=== PATIENT | female | born 1975 | race Two or more races ===

== ENCOUNTER 2020-06-23 09:10 | Outpatient (REF) | payer OTHER, SELFPAY ==
[2020-06-23 10:28] LABS: Basophils Absolute Auto 0.1 X10*3/uL (0.0-0.2); Basophils Percent Auto 0.7 % (0-2); Eosinophils Absolute Auto 0.2 X10*3/uL (0.0-0.4); Eosinophils Percent Auto 2.6 % (0-4); Hematocrit 37.8 % (37-47); Hemoglobin 12.2 g/dl (12.0-16.0); Imm Gran Abs Auto 0.02 X10*3/uL (0.00-0.03); Imm Gran Pct Auto 0.3 % (0.0-0.4); Lymphocytes Absolute Auto 2.2 X10*3/uL (1.2-4.9); Lymphocytes Percent Auto 30.8 % (20-40); MANUAL DIFF FLAG NO; Mean Corpuscular HGB Conc 32.3 g/dl (31.0-35.0); Mean Corpuscular Hemoglobin 28.7 pg (27.0-33.0); Mean Corpuscular Volume 88.9 fL (80-98); Mean Platelet Volume 10.8 fL (9.4-12.3); Monocytes Absolute Auto 0.6 X10*3/uL (0.1-1.2); Monocytes Percent Auto 7.8 % (2-11); Neutrophils Absolute Auto 4.2 X10*3/uL (2.0-8.3); Neutrophils Percent Auto 57.8 % (45-73); Platelet Count 256 X10*3/uL (160-400); Red Blood Count 4.25 X10*6/uL (4.20-5.50); Red Cell Distribution Width 12.5 % (11.0-16.0); White Blood Count 7.2 X10*3/uL (4.8-10.8)
[2020-06-23 10:56] LABS: Alanine Aminotransferase 21 U/L (0-31); Albumin Level 4.3 g/dL (3.5-5.0); Alkaline Phosphatase 81 U/L (39-117); Anion Gap 11 (12-20); Aspartate Amino Transferase 18 U/L (5-31); Bilirubin Total 0.2 mg/dL (0.0-1.0); Blood Urea Nitrogen 11 mg/dL (9-16); Calcium 9.2 mg/dL (8.4-10.2); Carbon Dioxide 27 mmol/L (22-29); Chloride 106 mmol/L (96-108); Estimated Glomerular Filt Rate > 60; Glucose Random 100 mg/dL (60-115); Potassium 4.3 mmol/l (3.3-5.1); Sodium 140 mmol/L (135-145); Total Protein 7.7 g/dL (6.5-8.0)
== END 2020-06-23 09:11 | disposition home or self-care (01) ==
LOC: HO.LAB 09:10
PROVIDERS: PCP Internal Medicine; Visit Provider Student in an Organized Health Care Education/Training Program
DX: M79.7 Fibromyalgia (principal); M79.641 Pain in right hand; M79.642 Pain in left hand
CPT/HCPCS: 36415; 80053; 85025

== ENCOUNTER → 2020-07-22 12:52 | Outpatient (BNVA) | payer OTHER, SELFPAY | PROVIDERS: PCP Internal Medicine; Visit Provider Internal Medicine Pulmonary Disease ==

== ENCOUNTER 2020-08-19 13:41 | Outpatient (RCR) | payer OTHER, SELFPAY ==
--- NOTE | 2020-08-19 15:13 | MHC.OT.OEV ---
[address] [phone] F: [phone] Occupational Therapy Evaluation Diagnosis: Left hand pain Attending Provider: Dr Larios Prescribed Treatment: Lito and Fallon MD Follow Up Appointment: History of Current Condition: Pt w/ history of fibromyalgia, but has been reporting higher pain in left hand and radiating up into left forearm. Seen by rheumatology and referred to OT for conservative treatment. 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 strengthening exercises Living Situation, Family and/or Social Support: , kids grown and live away Current Level of Function and Occupation Self Care, Employment, Leisure: Difficulty with home care, assists w/ heavier activities Sleep: Difficulty sleeping due to pain Driving: Ind w/ driving Vision: Reading glasses Balance: Pain Assessment Pain Score: 8 Pain Scale Used: Numeric (0 - 10) Pain Location and Description: 8/10 sharp ache in B/L hands, at CMC pain in left radiates up to left lateral epicondyle Aggravating Factors: Sleep, gripping activities Alleviating Factors: Aspercream No relief w/ nighttime orthosis Skin and Soft Tissue Assessment Skin and Soft Tissue: Comments: Nerve assessment Ulnar Nerve: B/L Impaired Median Nerve: WNL Radial Nerve: WNL Comments: 3/5 small finger add B/L'ly Sensory Assessment Temperature: Light Touch: B/L Impaired Proprioception: Vibration: Comments: SW 4.31 B/L'ly Edema Assessment Upper Extremity: WNL Lower Extremity: WNL Comments: Dexterity Assessment Dexterity: Comments: Nine Hole Peg R 22 sec L 25 sec Special Tests Comments: (+) Phalen's left (+) Kari sign B/L'ly AROM(PROM) Strength Cervical Cervical Flexion: Cervical Extension: Cervical Lateral Flexion: Cervical Rotation: Comments: WNL Shoulder Flexion: Extension: Abduction: Internal Rotation: External Rotation: Comments: WNL Flexion: Extension: Abduction: Internal Rotation: External Rotation: Comments: Elbow Flexion: Extension: Pronation: Supination: Comments: WNL Flexion: Extension: Pronation: Supination: Comments: Wrist Flexion: Extension: Ulnar Deviation: Radial Deviation: Comments: Flexion: Extension: Ulnar Deviation: Radial Deviation: Comments: Thumb Thumb CMC Flexion: Thumb MCP Flexion: Thumb IP Flexion: Radial Abduction: Palmar Abduction: Ihlen (Kapandji 0-10): R 10 L 10 Comments: Ape hand appearance w/ CMC laxity Digits Index MCP: PIP: DIP: Long MCP: PIP: DIP: Ring MCP: PIP: DIP: Small MCP: PIP: DIP: Comments: WNL Gross Grasp: R 46 L 22 Lateral Pinch: R 9 L 6 Two-Point Pinch: R 5 L 5 Three-Jaw Pancho: R 6 L 6 Comments: Patient Education Primary Language: Kuwaiti Toe Stripper Required: No Current Knowledge: Understands information with skills for self-management Teaching Method: Demonstration Handouts Verbal Education Needs Identified on Evaluation: ADL's Disease Information Equipment Use Exercise Pain Safety How did patient/family demonstrate learning? Patient demonstrates Patient verbalizes Barriers to Learning: None Readiness for Learning: Accepting Who was educated? Patient Comments: Joint protection for hand and elbow Plan of Care Assessment: Pauly presents w/ chronic pain due to fibromyalgia, referred to OT for assessment and management of LUE pain. She reports attending OT in the past with some relief and cont'd to wear nighttime orthosis to both hands. She has bilateral CMC deformities w/ impaired stability and weakened opposition and abduction. 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 On assessment, she has decreased hand strength bilaterally, and point tenderness to dorsal left forearm and lateral epicondyle. She will benefit from cont'd OT for management of CMC pain and instability, as well as possible left lateral epicondylitis. STG Duration: 2 weeks Short Term Goals: 5/10 resting pain in left thumb Good follow through w/ joint protection Good follow through w/ HEP w/ sustained O posturing in bilateral thumbs LTG Duration: 4 weeks Rv Service Technician Goals: 3/10 resting pain in left thumb Pt to report relief of symptoms in left lateral epicondyle Left gross grasp >35lb Quickdash score <40 pts Frequency and Duration: The patient will be seen 1x/wk for 4 weeks Treatment Plan: Therapeutic Exercise Therapeutic Activity Home Exercise Program Splinting Patient Education Edema Control ADL Training Ultrasound Iontophoresis Paraffin Fluidotherapy MHP Cold Packs Joint Mobilization Soft Tissue Mobilization Kinesiotaping *treatment frequency limited due to pt's work schedule, only has saturday off Electronically Signed By: Jolie Richard OTR/Tabby Reviewed/agree with student documentation: N/A Therapist: Please sign and return to therapist, Thank you for your referral.
--- NOTE | 2020-09-27 11:37 | MHC.OT.DC ---
[address] [phone] F: [phone] Occupational Therapy Discharge Note Provider: Dr Larios Diagnosis: Left hand pain Date of Evaluation: 08/19/20 Date of Discharge: 09/27/20 Treatments to Date: 1 Cancellations to Date: 1 Discharge Status: Patient Elected to Stop Discharge Summary: From initial OT Eval: Pauly presents w/ chronic pain due to fibromyalgia, referred to OT for assessment and management of LUE pain. She reports attending OT in the past with some relief and cont'd to wear nighttime orthosis to both hands. She has bilateral CMC deformities w/ impaired stability and weakened opposition and abduction. 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 On assessment, she has decreased hand strength bilaterally, and point tenderness to dorsal left forearm and lateral epicondyle. She will benefit from cont'd OT for management of CMC pain and instability, as well as possible left lateral epicondylitis. Current Status: Patient has not returned for follow-up visits since initial OT eval. Electronically Signed By: WOODROW Muñiz/Tabby Reviewed/agree with student documentation: N/A Therapist: Please Sign and return to therapist, thank you for your referral.
== END 2020-09-27 11:38 | disposition other institution (70) ==
LOC: HO.OT 13:41
PROVIDERS: Visit Provider Student in an Organized Health Care Education/Training Program
DX: M79.7 Fibromyalgia (principal)
CPT/HCPCS: 97166

== ENCOUNTER → 2020-11-09 10:53 | Outpatient (BNVA) | payer OTHER, SELFPAY | PROVIDERS: PCP Internal Medicine; Visit Provider Internal Medicine Pulmonary Disease ==

== ENCOUNTER 2021-02-25 01:52 | Emergency (ER) | payer OTHER, SELFPAY ==
--- NOTE | ~2021-02-25 | XR_ITS ---
EXAMINATION: XR ABDOMEN KUB CLINICAL INDICATION: Left upper quadrant discomfort COMPARISON: None TECHNIQUE: AP view of the abdomen. FINDINGS: The bowel gas pattern is normal with no evidence of ileus or obstruction. Mild constipation. No unusual soft tissue calcifications are noted. The bones are unremarkable. XR/XR KUB IMPRESSION: Mild constipation.
[2021-02-25 03:34] VITALS: BP 123/69; PULSE 74; RESP 15; TEMP 36; O2SAT 100; BMI 22.8
[2021-02-25 03:57] LABS: Basophils Absolute Auto 0.1 X10*3/uL (0.0-0.2); Basophils Percent Auto 0.6 % (0-2); Eosinophils Absolute Auto 0.5 X10*3/uL (0.0-0.4); Eosinophils Percent Auto 5.7 % (0-4); Hematocrit 36.7 % (37-47); Hemoglobin 12.2 g/dl (12.0-16.0); Imm Gran Abs Auto 0.02 X10*3/uL (0.00-0.03); Imm Gran Pct Auto 0.2 % (0.0-0.4); Lymphocytes Absolute Auto 2.6 X10*3/uL (1.2-4.9); Mean Corpuscular HGB Conc 33.2 g/dl (31.0-35.0); Mean Corpuscular Hemoglobin 30.2 pg (27.0-33.0); Mean Corpuscular Volume 90.8 fL (80-98); Monocytes Absolute Auto 0.7 X10*3/uL (0.1-1.2); Monocytes Percent Auto 7.8 % (2-11); Neutrophils Absolute Auto 4.9 X10*3/uL (2.0-8.3); Neutrophils Percent Auto 55.7 % (45-73); Platelet Count 258 X10*3/uL (160-400); Red Blood Count 4.04 X10*6/uL (4.20-5.50); Red Cell Distribution Width 11.8 % (11.0-16.0); White Blood Count 8.7 X10*3/uL (4.8-10.8)
[2021-02-25 03:58] LABS: MANUAL DIFF FLAG NO
[2021-02-25 04:01] LABS: Appearance Urine CLEAR; Color Urine YELLOW; Glucose Urine UA 100 MG/DL (NEG); Leukocyte Esterase Urine NEG (NEG); Nitrite Urine NEG (NEG); PH 6.5 (5.0-8.0); Specific Gravity - Urine 1.015 (1.005-1.025); Urine Blood NEG (NEG); Urine Ketones NEG (NEG); Urine Protein NEG (NEG-TRACE)
[2021-02-25 04:19] LABS: Alanine Aminotransferase 31 U/L (0-31); Albumin Level 4.3 g/dL (3.5-5.0); Alkaline Phosphatase 85 U/L (39-117); Anion Gap 10 (12-20); Aspartate Amino Transferase 21 U/L (5-31); Bilirubin Total 0.2 mg/dL (0.0-1.0); Blood Urea Nitrogen 14 mg/dL (9-16); Calcium 9.6 mg/dL (8.4-10.2); Carbon Dioxide 26 mmol/L (22-29); Chloride 109 mmol/L (96-108); Creatinine Clr Calc Pharmacy 79.6; Estimated Glomerular Filt Rate > 60; Glucose Random 106 mg/dL (60-115); Potassium 3.8 mmol/L (3.3-5.1); Sodium 141 mmol/L (135-145); Total Protein 7.6 g/dL (6.5-8.0)
[2021-02-25 04:25] LABS: UPreg QC Valid YES; Urine Pregnancy NEGATIVE (NEGATIVE)
--- NOTE | 2021-02-25 04:33 | ED_ITS ---
HPI - Abdominal Pain General Chief Complaint: Abdominal Pain Stated Complaint: Abd pain Time Seen by Provider: 02/25/21 04:33 Source: patient Mode of arrival: ambulatory History of Present Illness HPI narrative: 45-year-old female with history of fibromyalgia presents with 6 days of burning pain from back radiating into left upper quadrant that has not been associated with fever, chills, nausea, vomiting, decrease in appetite, diarrhea, or urinary pain/burning/frequency. Patient states that she has been to 2 urgent cares, and emergency room at [facility], and wished to get re- evaluated here tonight. Related Data Home Medications Medication Instructions Recorded Confirmed acetaminophen 650 mg 1,300 mg PO DAILY tab 06/23/20 11/17/20 tablet,extended release (Tylenol Arthritis Pain) cetirizine 10 mg capsule (Zyrtec) 10 mg PO DAILY 06/23/20 11/17/20 cholecalciferol (vitamin D3) 25 25 mcg PO DAILY 06/23/20 11/17/20 mcg (1,000 unit) capsule ipratropium 0.5 mg-albuterol 3 mg 3 ml INHALATION Q4-6H PRN 06/23/20 11/17/20 (2.5 mg base)/3 mL nebulization soln omeprazole 20 mg capsule,delayed 20 mg PO DAILY 06/23/20 11/17/20 release COVID-19 vacc,mRNA(Pfizer)(PF) 30 ml IM 07/22/20 11/17/20 mcg/0.3 mL IM susp Previous Rx's Medication Instructions Recorded fluticasone propionate 50 1 spray INTRANASAL DAILY #16 ml 06/06/20 mcg/actuation nasal spray,suspension pregabalin 100 mg capsule (Lyrica) 100 mg PO BID #180 cap 06/23/20 budesonide-formoterol HFA 160 2 puff INHALATION BID 30 Days #1 ea 11/09/20 mcg-4.5 mcg/actuation aerosol inhaler (Symbicort) cyclobenzaprine 10 mg tablet 10 mg PO BEDTIME #90 tab 01/17/21 ibuprofen 400 mg tablet 400 mg PO ONCE PRN 30 Days #30 tab 01/17/21 albuterol sulfate 90 mcg/actuation 1 inh INHALATION QID PRN 30 Days 02/07/21 aerosol inhaler (ProAir HFA) #18 g meloxicam 15 mg tablet 15 mg PO DAILY #14 tab 02/22/21 Allergies Allergy/AdvReac Type Severity Reaction Status Date / Time No Known Allergies Allergy Verified 02/25/21 03:34 Review of Systems Review of Systems Pertinent positives and negatives as stated in HPI 10 point review of systems is otherwise negative. Physical Exam Vital Signs: Vital Signs: Last Vital Signs Temp 96.8 F 02/25/21 03:34 Pulse 74 02/25/21 03:34 Resp 15 02/25/21 03:34 BP 123/69 02/25/21 03:34 Pulse Ox 100 02/25/21 03:34 Body Mass Index 22.8 VITAL SIGNS: Reviewed. GENERAL: Well developed, well nourished, in no acute distress. HEAD: Normocephalic/atraumatic EYES: PERRLA, EOMI LUNGS: Normal breath sounds. No adventitious sounds or accessory muscle use. SpO2<100> CARDIOVASCULAR: Regular rate and rhythm without noted murmurs, no JVD or lower extremity edema. ABDOMEN: Soft, non-tender, non-distended with bowel sounds, no CVA tenderness SKIN: Inspection of the skin reveals no rashes NEUROLOGIC: Alert and oriented x 4. Course Course Course Narrative: 45-year-old female with history and clinical presentation consistent with likely fibromyalgia flare as on review of all investigations there are no acute findings to better explain patient's presentation. Will evaluate further with a KUB and provide combination analgesics, but otherwise if negative patient will be discharged home in stable condition with instructions to follow-up with her primary care provider and continue with her regimen of NSAIDs. Review of KUB results demonstrates mild constipation. Patient declined analgesics and she was provided with KUB results and will be given recommendations for MiraLax. MDM - Abdominal Pain Lab Data Result diagrams: 02/25/21 03:52 02/25/21 03:52 Labs: Lab Results 02/25/21 02/25/21 02/25/21 Range/Units 03:37 03:39 03:52 WBC 8.7 (4.8-10.8) X10*3/uL RBC 4.04 L (4.20-5.50) X10*6/uL Hgb 12.2 (12.0-16.0) g/dl Hct 36.7 L (37-47) % MCV 90.8 (80-98) fL MCH 30.2 (27.0-33.0) pg MCHC 33.2 (31.0-35.0) g/dl RDW 11.8 (11.0-16.0) % Plt Count 258 (160-400) X10*3/uL MPV 10.0 (9.4-12.3) fL Immature Gran % (Auto) 0.2 (0.0-0.4) % Neut % (Auto) 55.7 (45-73) % Lymph % (Auto) 30.0 (20-40) % [place] % (Auto) 7.8 (2-11) % Eos % (Auto) 5.7 H (0-4) % Baso % (Auto) 0.6 (0-2) % Lymph # (Auto) 2.6 (1.2-4.9) X10*3/uL [place] # (Auto) 0.7 (0.1-1.2) X10*3/uL Eos # (Auto) 0.5 H (0.0-0.4) X10*3/uL Baso # (Auto) 0.1 (0.0-0.2) X10*3/uL Abs Immat Gran (auto) 0.02 (0.00-0.03) X10*3/uL Absolute Neuts (auto) 4.9 (2.0-8.3) X10*3/uL Absolute Nucleated RBC 0.000 (0.0-0.012) X10*3/uL Nucleated RBC % (auto) 0.0 (0.0-0.2) /100WBC Sodium (135-145) mmol/L Potassium (3.3-5.1) mmol/L Chloride (96-108) mmol/L Carbon Dioxide (22-29) mmol/L Anion Gap (12-20) BUN (9-16) mg/dL Creatinine (0.5-1.4) mg/dL Estim Creat Clear Calc Estimated GFR Random Glucose (60-115) mg/dL Calcium (8.4-10.2) mg/dL Total Bilirubin (0.0-1.0) mg/dL AST (5-31) U/L ALT (0-31) U/L Alkaline Phosphatase (39-117) U/L Total Protein (6.5-8.0) g/dL Albumin (3.5-5.0) g/dL Urine Color YELLOW Urine Appearance CLEAR Urine pH 6.5 (5.0-8.0) Ur Specific [place] 1.015 (1.005-1.025) Urine Protein NEG (NEG-TRACE) MG/DL Urine Glucose (UA) 100 H (NEG) MG/DL Urine Ketones NEG (NEG) MG/DL Urine Blood NEG (NEG) Urine Nitrite NEG (NEG) Ur Leukocyte Esterase NEG (NEG) Urine Test NEGATIVE (NEGATIVE) 02/25/21 Range/Units 03:52 WBC (4.8-10.8) X10*3/uL RBC (4.20-5.50) X10*6/uL Hgb (12.0-16.0) g/dl Hct (37-47) % MCV (80-98) fL MCH (27.0-33.0) pg MCHC (31.0-35.0) g/dl RDW (11.0-16.0) % Plt Count (160-400) X10*3/uL MPV (9.4-12.3) fL Immature Gran % (Auto) (0.0-0.4) % Neut % (Auto) (45-73) % Lymph % (Auto) (20-40) % [place] % (Auto) (2-11) % Eos % (Auto) (0-4) % Baso % (Auto) (0-2) % Lymph # (Auto) (1.2-4.9) X10*3/uL [place] # (Auto) (0.1-1.2) X10*3/uL Eos # (Auto) (0.0-0.4) X10*3/uL Baso # (Auto) (0.0-0.2) X10*3/uL Abs Immat Gran (auto) (0.00-0.03) X10*3/uL Absolute Neuts (auto) (2.0-8.3) X10*3/uL Absolute Nucleated RBC (0.0-0.012) X10*3/uL Nucleated RBC % (auto) (0.0-0.2) /100WBC Sodium 141 (135-145) mmol/L Potassium 3.8 (3.3-5.1) mmol/L Chloride 109 H (96-108) mmol/L Carbon Dioxide 26 (22-29) mmol/L Anion Gap 10 L (12-20) BUN 14 (9-16) mg/dL Creatinine 0.85 (0.5-1.4) mg/dL Estim Creat Clear Calc 79.6 Estimated GFR > 60 Random Glucose 106 (60-115) mg/dL Calcium 9.6 (8.4-10.2) mg/dL Total Bilirubin 0.2 (0.0-1.0) mg/dL AST 21 (5-31) U/L ALT 31 (0-31) U/L Alkaline Phosphatase 85 (39-117) U/L Total Protein 7.6 (6.5-8.0) g/dL Albumin 4.3 (3.5-5.0) g/dL Urine Color Urine Appearance Urine pH (5.0-8.0) Ur Specific [place] (1.005-1.025) Urine Protein (NEG-TRACE) MG/DL Urine Glucose (UA) (NEG) MG/DL Urine Ketones (NEG) MG/DL Urine Blood (NEG) Urine Nitrite (NEG) Ur Leukocyte Esterase (NEG) Urine Test (NEGATIVE) Discharge Plan Discharge Clinical Impression: Constipation Patient Disposition: Home, Self-Care Instructions: Constipation (ED), High Fiber Diet (ED), Polyethylene Glycol 3350 (By mouth) Additional Instructions: 1. Increase your water consumption. 2. Recommend trying fewc-huh-[id number] MiraLax daily for softer bowel movements. 3. Follow-up with your primary care provider in the the next 3-4 days for re- evaluation. Return to the ER for acute worsening of symptoms. Prescriptions: No Action fluticasone propionate 50 mcg/actuation spray,suspension 1 spray intranasal DAILY Qty: 16 RF: 0 cyclobenzaprine 10 mg tablet 10 mg PO BEDTIME Qty: 90 RF: 1 ibuprofen 400 mg tablet 400 mg PO ONCE PRN (Reason: pain) 30 Days Qty: 30 RF: 0 albuterol sulfate [ProAir HFA] 90 mcg/actuation HFA aerosol inhaler 1 inh inhalation QID PRN (Reason: shortness of breath or wheezing) 30 Days Qty: 18 RF: 0 meloxicam 15 mg tablet 15 mg PO DAILY Qty: 14 RF: 0 cholecalciferol (vitamin D3) 25 mcg (1,000 unit) capsule 25 mcg PO DAILY RF: 0 Zyrtec 10 mg capsule 10 mg PO DAILY RF: 0 omeprazole 20 mg capsule,delayed release(DR/EC) 20 mg PO DAILY RF: 0 ipratropium-albuterol 0.5 mg-3 mg(2.5 mg base)/3 mL solution for nebulization 3 ml inhalation Q4-6H PRNRF: 0 acetaminophen [Tylenol Arthritis Pain] 650 mg tablet extended release 1,300 mg PO DAILY RF: 0 pregabalin [Lyrica] 100 mg capsule 100 mg PO BID Qty: 180 RF: 1 Pfizer COVID-19 Vaccine (EUA) 30 mcg/0.3 mL suspension for reconstitution IM RF: 0 budesonide-formoterol [Symbicort] 160-4.5 mcg/actuation HFA aerosol inhaler 2 puff inhalation BID 30 Days Qty: 1 RF: 6 Referrals: Polo Knight MD [Primary Care Provider] - 2 days [facility] Past Medical History Source: nursing notes reviewed Medical History Asthma Fibromyalgia Surgical History H/O LEEP History of surgery History of tubal ligation Family History Family History Father HTN (hypertension) Diabetes mellitus Mother High cholesterol Maternal Grandfather Cancer Maternal Grandmother Cancer Paternal Grandmother Colon cancer Maternal Aunt Breast cancer Social History Social History Alcohol intake: never Advance Directives: No Advance Directives Information Provided: No Patient : No
--- NOTE | 2021-02-25 04:54 | PC.NURSE ---
pt refusing Tylenol and Toradol at this time provider notified
== END 2021-02-25 05:00 | disposition home or self-care (01) ==
PROVIDERS: Emergency Provider Student in an Organized Health Care Education/Training Program; PCP Internal Medicine
DX: K59.00 Constipation, unspecified (principal); R10.9 Unspecified abdominal pain
CPT/HCPCS: 36415; 74018; 80053; 81003; 81025; 85025; 96372; 99283; 99284

== ENCOUNTER 2021-03-06 08:40 | Outpatient (REF) | payer OTHER, SELFPAY ==
[2021-03-06 14:26] LABS: CT PCR NOT DETECTED (Not Detect.); NG PCR NOT DETECTED (Not Detect.)
[2021-03-07 08:55] LABS: BV Int Neg Control Negative (Negative); BV Int Pos Control Positive (Positive)
== END 2021-03-06 08:41 | disposition home or self-care (01) ==
LOC: HO.LAB 08:40
PROVIDERS: PCP Internal Medicine; Visit Provider Advanced Practice Midwife
DX: Z01.411 Encounter for gynecological examination (general) (routine) with abnormal findings (principal); Z11.3 Encounter for screening for infections with a predominantly sexual mode of transmission; N89.8 Other specified noninflammatory disorders of vagina; Z20.2 Contact with and (suspected) exposure to infections with a predominantly sexual mode of transmission; R23.2 Flushing
CPT/HCPCS: 87480; 87491; 87510; 87591; 87660

== ENCOUNTER 2021-03-20 09:35 | Outpatient (REF) | payer OTHER, SELFPAY ==
[2021-03-20 11:22] LABS: Appearance Urine CLEAR; Color Urine YELLOW; Glucose Urine UA NEG (NEG); Leukocyte Esterase Urine NEG (NEG); Nitrite Urine NEG (NEG); Specific Gravity - Urine 1.025 (1.005-1.025); Urine Blood NEG (NEG); Urine Ketones NEG (NEG); Urine Protein NEG (NEG-TRACE)
== END 2021-03-20 09:36 | disposition home or self-care (01) ==
LOC: HO.HMGCLDS 09:35
PROVIDERS: PCP Internal Medicine; Visit Provider Internal Medicine
DX: R31.9 Hematuria, unspecified (principal)
CPT/HCPCS: 81003

== ENCOUNTER 2021-03-31 14:26 | Outpatient (REF) | payer OTHER, SELFPAY ==
--- NOTE | ~2021-03-31 | US_ITS ---
EXAMINATION: US RETROPERITONEAL LIMITED (RENAL ONLY) CLINICAL INFORMATION: Hematuria, unspecified. COMPARISON: KUB 02/25/2021. TECHNIQUE: Real-time imaging of the kidneys. FINDINGS: RIGHT KIDNEY: 11.9 x 5.1 x 7.0 cm (SAG x AP x TRV). The kidney is normal in size, contour, and echogenicity. Renal cortical thickness is normal. No calculi or focal parenchymal lesions. No hydronephrosis. LEFT KIDNEY: 12.3 x 5.4 x 7.0 cm (SAG x AP x TRV). The kidney is normal in size, contour, and echogenicity. Renal cortical thickness is normal. No calculi or focal parenchymal lesions. No hydronephrosis. The visualized liver shows diffuse increased echotexture. US/US renal BI IMPRESSION: 1. No significant renal abnormality. 2. Hepatic steatosis.
== END 2021-03-31 14:27 | disposition home or self-care (01) ==
LOC: HO.HMGCX 14:26
PROVIDERS: PCP Internal Medicine; Visit Provider Internal Medicine
DX: R31.9 Hematuria, unspecified (principal); M54.9 Dorsalgia, unspecified
CPT/HCPCS: 76775

== ENCOUNTER 2021-05-03 15:55 | Outpatient (REF) | payer OTHER, SELFPAY ==
--- NOTE | ~2021-05-03 | MM_ITS ---
EXAMINATION: MM SCREENING DIGITAL BREAST TOMOSYNTHESIS, BILATERAL CLINICAL INFORMATION: Screening. Asymptomatic. Right reduction mammoplasty, 2000. The lifetime risk of breast cancer based on the Tyrer-Cuzick Model is 11%. COMPARISON: Mammography: 01/18/2020, outside mammography 04/22/2018, 08/15/2017, 09/12/2016 ([facility]). TECHNIQUE: Digital breast tomosynthesis is performed in both the craniocaudal and mediolateral oblique views along with computer-aided detection (CAD). Synthesized 2D images are generated from the tomosynthesis. FINDINGS: There are scattered areas of fibroglandular density (ACR BI-RADS breast composition Category b). Parenchymal pattern is similar to prior exam. There is old minor scarring and scattered benign superficial round and rim calcifications consistent with the remote reduction mammoplasty. There are scattered bilateral asymmetric densities and shifting fibroglandular tissue similar to prior studies. No significant mass or architectural abnormality. No significant changes. MM/MM tomosynthesis screening BI IMPRESSION: No significant changes from prior studies. ASSESSMENT: BI-RADS 2: Benign RECOMMENDATION: Routine annual mammography screening. This patient's information was entered into a reminder system with a target due date for their next mammogram.
== END 2021-05-03 15:56 | disposition home or self-care (01) ==
LOC: HO.MAMMO 15:55
PROVIDERS: PCP Internal Medicine; Visit Provider Advanced Practice Midwife
DX: Z12.31 Encounter for screening mammogram for malignant neoplasm of breast (principal)
CPT/HCPCS: 77063; 77067

== ENCOUNTER → 2021-08-29 14:39 | Outpatient (BNVA) | payer OTHER, SELFPAY | PROVIDERS: PCP Internal Medicine; Visit Provider Internal Medicine Pulmonary Disease | DX: J45.40 Moderate persistent asthma, uncomplicated (principal); M79.7 Fibromyalgia; Z91.09 Other allergy status, other than to drugs and biological substances | CPT/HCPCS: 99212 ==

== ENCOUNTER 2022-01-29 15:32 | Outpatient (REF) | payer OTHER, SELFPAY ==
[2022-01-29 15:49] LABS: MANUAL DIFF FLAG NO
[2022-01-29 16:08] LABS: Basophils Percent Auto 0.6 % (0-2); Eosinophils Absolute Auto 0.1 X10*3/uL (0.0-0.4); Eosinophils Percent Auto 2.2 % (0-4); Hematocrit 39.5 % (37.0-47.0); Hemoglobin 13.2 g/dl (12.0-16.0); Imm Gran Abs Auto 0.01 X10*3/uL (0.00-0.03); Imm Gran Pct Auto 0.2 % (0.0-0.4); Lymphocytes Absolute Auto 2.4 X10*3/uL (1.2-4.9); Lymphocytes Percent Auto 37.2 % (20-40); Mean Corpuscular HGB Conc 33.4 g/dl (31.0-35.0); Mean Corpuscular Hemoglobin 30.2 pg (27.0-33.0); Mean Corpuscular Volume 90.4 fL (80.0-98.0); Mean Platelet Volume 10.9 fL (9.4-12.3); Monocytes Absolute Auto 0.5 X10*3/uL (0.1-1.2); Monocytes Percent Auto 7.9 % (2-11); Neutrophils Absolute Auto 3.3 x10*3/uL (2.0-8.3); Neutrophils Percent Auto 51.9 % (45-73); Platelet Count 234 X10*3/uL (160-400); Red Blood Count 4.37 X10*6/uL (4.20-5.50); Red Cell Distribution Width 11.9 % (11.0-16.0); White Blood Count 6.4 X10*3/uL (4.8-10.8)
[2022-01-29 16:49] LABS: Alanine Aminotransferase 37 U/L (0-31); Aspartate Amino Transferase 28 U/L (5-31); Blood Urea Nitrogen 15 mg/dL (9-16); Estimated Glomerular Filt Rate > 60
== END 2022-01-29 15:33 | disposition home or self-care (01) ==
LOC: HO.LAB 15:32
PROVIDERS: Visit Provider Nurse Practitioner Family
DX: M79.7 Fibromyalgia (principal)
CPT/HCPCS: 36415; 82565; 84450; 84460; 84520; 85025

== ENCOUNTER 2022-03-01 14:36 | Outpatient (REF) | payer OTHER, SELFPAY ==
[2022-03-01 16:17] LABS: Free T4 (Free Thyroxine) 0.82 ng/dL (0.71-1.85); Thyroid Stimulating Hormone 2.29 uIU/mL (0.32-4.0)
== END 2022-03-01 14:37 | disposition home or self-care (01) ==
LOC: HO.LAB 14:36
PROVIDERS: Visit Provider Internal Medicine
DX: E04.2 Nontoxic multinodular goiter (principal)
CPT/HCPCS: 36415; 84439; 84443

== ENCOUNTER 2022-04-20 15:05 | Outpatient (REF) | payer OTHER, SELFPAY ==
[2022-04-20 18:12] LABS: CT PCR NOT DETECTED (Not Detect.); NG PCR NOT DETECTED (Not Detect.)
[2022-04-26 02:06] LABS: HPV mRNA E6/E7 rflx Not Detected (Not Detected)
== END 2022-04-20 15:06 | disposition home or self-care (01) ==
LOC: HO.LNP 15:05
PROVIDERS: Visit Provider Advanced Practice Midwife
DX: Z01.419 Encounter for gynecological examination (general) (routine) without abnormal findings (principal); Z11.51 Encounter for screening for human papillomavirus (HPV)
CPT/HCPCS: 87491; 87591; 87624; 88142

== ENCOUNTER 2022-05-09 15:54 | Outpatient (REF) | payer OTHER, SELFPAY ==
--- NOTE | ~2022-05-09 | MM_ITS ---
EXAMINATION: MM SCREENING DIGITAL BREAST TOMOSYNTHESIS, BILATERAL CLINICAL INFORMATION: Screening. Asymptomatic. Remote prior reduction mammoplasty, 2000. The lifetime risk of breast cancer based on the Tyrer-Cuzick Model is 10%. COMPARISON: Mammography: 05/03/2021, 01/18/2020, 04/22/2018, 08/15/2017 TECHNIQUE: Digital breast tomosynthesis is performed in both the craniocaudal and mediolateral oblique views along with computer-aided detection (CAD). Synthesized 2D images are generated from the tomosynthesis. FINDINGS: There are scattered areas of fibroglandular density (ACR BI-RADS breast composition Category b). There is minor bilateral scarring and scattered similar appearing round and dermal calcifications consistent with the prior reduction mammoplasty. Parenchymal pattern is similar to prior exam. There are scattered stable nodular fibroglandular density central and upper outer left breast similar to prior exam. No interval developing density or architectural abnormality. The axilla are unremarkable. MM/MM tomosynthesis screening BI IMPRESSION: No significant change from prior exam. ASSESSMENT: BI-RADS 2: Benign RECOMMENDATION: Routine annual mammography screening. This patient's information was entered into a reminder system with a target due date for their next mammogram.
== END 2022-05-09 15:55 | disposition home or self-care (01) ==
LOC: HO.MAMMO 15:54
PROVIDERS: PCP Physician Assistant Medical; Visit Provider Physician Assistant Medical
DX: Z12.31 Encounter for screening mammogram for malignant neoplasm of breast (principal)
CPT/HCPCS: 77063; 77067

== ENCOUNTER 2022-05-24 08:56 | Outpatient (REF) | payer OTHER, SELFPAY ==
--- NOTE | 2022-05-24 09:51 | P.BOP_ITS ---
Brief Operative Note Date of Service: 05/24/22 Pre-op diagnosis: Multinodular Thyroid Procedure: This is doctor Ginny Arriaga. This is an ultrasound-guided fine-needle aspiration report. Date of Examination: 05/24/2022 Indication: Multinodular Thyroid Porcedure: Procedure was explained to the patient. Alternatives, the risk and benefits were discussed. Written consent was obtained. A time-out was also obtained. After sterile preparation, 1 ml of 1% lidocaine solution was applied subcutaneously. Fine-needle aspiration of a right lower pole 1.4 cm thyroid nodule was performed using direct ultrasound guidance to confirm accurate needle placement. Five aspirations were made using 27 gauge needles. Samples were submitted for cytology. Two passes were dedicated for [employer] sequencing sewing pattern layout technician testing. Our attention was then turned to the right mid pole medial 1.8 cm thyroid nodule. Fine-needle aspiration of this thyroid nodule was performed using direct ultrasound guidance to confirm accurate needle placement. Three aspirat ions were made using 27 gauge needles. Samples were submitted for cytology. One pass was dedicated for [employer] sequencing sewing pattern layout technician testing. Our attention was then turned to the right mid pole lateral 1.6 cm thyroid nodule. Fine-needle aspiration of this thyroid nodule was performed using direct ultrasound guidance to confirm accurate needle placement. Four aspirations were made using 27 gauge needles. Samples were submitted for cytology. One pass was dedicated for [employer] sequencing sewing pattern layout technician testing. The patient tolerated the procedure well. Aftercare instructions were provided. Impression: Uncomplicated fine needle aspiration biopsy of a right lower pole 1.4 cm thyroid nodule, a right mid pole medial 1.8 cm thyroid nodule and a right mid pole lateral 1.6 cm thyroid nodule under ultrasound guidance. Surgeon: Ginny Arriaga, DO Was an Napper Runner used for this Procedure?: No Estimated blood loss (mL): 0
[2022-05-24] MEDS: Lidocaine HCl 1 % MPF 5 ML VIAL SUBCUT (09:59)
== END 2022-05-24 08:57 | disposition home or self-care (01) ==
LOC: HO.US 08:56
PROVIDERS: Visit Provider Internal Medicine
DX: E04.2 Nontoxic multinodular goiter (principal)
CPT/HCPCS: 10005; 10006; 88172; 88173; 88177

== ENCOUNTER 2022-06-21 10:52 | Outpatient (REF) | payer OTHER, SELFPAY | END 2022-06-21 10:53 | disposition home or self-care (01) | LOC: HO.US 10:52 | PROVIDERS: PCP Physician Assistant Medical; Visit Provider Internal Medicine | DX: Z13.89 Encounter for screening for other disorder (principal) ==

== ENCOUNTER → 2022-07-05 12:54 | Outpatient (BNVA) | payer OTHER, SELFPAY | PROVIDERS: PCP Physician Assistant Medical; Visit Provider Internal Medicine | DX: Z13.89 Encounter for screening for other disorder (principal) ==

== ENCOUNTER 2022-08-01 14:39 | Outpatient (REF) | payer OTHER, SELFPAY ==
[2022-08-01 16:41] LABS: Alanine Aminotransferase 32 U/L (0-31); Albumin Level 4.3 g/dL (3.5-5.0); Alkaline Phosphatase 103 U/L (39-117); Anion Gap 16 (12-20); Aspartate Amino Transferase 23 U/L (5-31); Bilirubin Total 0.4 mg/dL (0.0-1.0); Blood Urea Nitrogen 14 mg/dL (9-16); Calcium 9.2 mg/dL (8.4-10.2); Carbon Dioxide 21 mmol/L (22-29); Chloride 110 mmol/L (96-108); Estimated Glomerular Filt Rate > 60; Glucose Random 87 mg/dL (60-115); Potassium 4.4 mmol/L (3.3-5.1); Sodium 143 mmol/L (135-145); Total Protein 7.6 g/dL (6.5-8.0)
== END 2022-08-01 14:40 | disposition home or self-care (01) ==
LOC: HO.LAB 14:39
PROVIDERS: PCP Physician Assistant Medical; Visit Provider Nurse Practitioner Family
DX: M79.7 Fibromyalgia (principal)
CPT/HCPCS: 36415; 80053

== ENCOUNTER → 2022-10-24 15:19 | Outpatient (BNVA) | payer OTHER, SELFPAY | PROVIDERS: PCP Physician Assistant Medical; Visit Provider Internal Medicine Pulmonary Disease ==

== ENCOUNTER 2023-05-14 15:57 | Outpatient (REF) | payer OTHER, SELFPAY ==
--- NOTE | ~2023-05-14 | MM_ITS ---
EXAMINATION: MM SCREENING DIGITAL BREAST TOMOSYNTHESIS, BILATERAL CLINICAL INFORMATION: Screening. Asymptomatic. The patient is status post bilateral breast reduction. COMPARISON: Mammography: This study is compared with prior exams dating back to 2018. TECHNIQUE: Digital breast tomosynthesis is performed in both the craniocaudal and mediolateral oblique views along with computer-aided detection (CAD). Synthesized 2D images are generated from the tomosynthesis. FINDINGS: There are scattered areas of fibroglandular density (ACR BI-RADS breast composition Category b). There are no significant masses, abnormal calcifications, or other abnormalities. There are post reduction changes present in each breast. MM/MM tomosynthesis screening BI IMPRESSION: No mammographic evidence of malignancy. ASSESSMENT: BI-RADS BI-RADS 2 - Benign Findings RECOMMENDATION: Routine annual mammography screening. 1 year F/U This examination should not preclude the clinical evaluation of a suspicious palpable abnormality. This patient's information was entered into a reminder system with a target due date for their next mammogram.
== END 2023-05-14 15:58 | disposition home or self-care (01) ==
LOC: HO.MAMMO 15:57
PROVIDERS: PCP Physician Assistant Medical; Visit Provider Physician Assistant Medical
DX: Z12.31 Encounter for screening mammogram for malignant neoplasm of breast (principal)
CPT/HCPCS: 77063; 77067

== ENCOUNTER → 2023-05-14 16:00 | Outpatient (BNV) | payer OTHER, SELFPAY | PROVIDERS: PCP Physician Assistant Medical; Visit Provider Radiology Diagnostic Radiology | DX: Z12.31 Encounter for screening mammogram for malignant neoplasm of breast (principal) | CPT/HCPCS: 77063; 77067 ==

== ENCOUNTER 2023-06-12 13:54 | Outpatient (AMB) | payer OTHER, SELFPAY ==
--- NOTE | 2023-06-12 13:56 | MHC.OFFVIS ---
Intake Vital Signs 06/12/23 14:03 Height 5 ft 7 in Weight 156 lb 8.451 oz BMI 24.5 BP 110/80 Blood Pressure Location Lt brachial Position Sitting Pulse 83 Pulse Source Pulse Oximeter Temp 97 F Temp Source Skin Pulse Oximetry (%) 97 Oxygen Delivery Method Room Air Intake Visit Reasons: Fibromyalgia Intake Note: Pt presents today for follow up and test results. Failed plaquenil and prednisone. Manages FM with exercise and flexeril. Requesting refill for cyclobenzaprine and ibuprofen. Crop Specialist Required: No Accompanied by: Self / Same As Patient Allergies No Known Allergies Allergy (Verified 06/12/23 14:03) Medication List - Last Reconciled 06/12/23 by Garrett Coffman MD acetaminophen ER (Tylenol Arthritis Pain) 1,300 mg PO DAILY PRN albuterol sulfate 90 mcg/actuation (ProAir HFA) 1 inh inhalation QID PRN 30 days cetirizine (Zyrtec) 10 mg PO DAILY cholecalciferol (vitamin D3) 25 mcg PO DAILY cyclobenzaprine 10 mg PO BEDTIME PRN fluticasone propionate 50 mcg/actuation 1 spray intranasal DAILY ibuprofen 400 mg PO Q8H PRN ipratropium-albuterol 0.5 mg-3 mg(2.5 mg base)/3 mL 3 mL inhalation Q4-6H PRN 30 days omeprazole 20 mg PO DAILY Symbicort 160-4.5 mcg/actuation (budesonide-formoterol) 2 puffs inhalation BID 30 days NS tiotropium bromide 2.5 mcg/actuation (Spiriva Respimat) 2 puffs inhalation QAM 30 days HPI HPI Comments History of Present Illness Details This is a 47-year-old female with fibromyalgia who presents for follow-up. She was last seen by Marylin Reid 07/2022. She states that feels about the same overall. Chronic diffuse pain. She states that takes the Flexeril every night and gets diffuse pains if she does not take it. She also takes ibuprofen every once in a while. She states that more recently she has been having left wrist pain. She feels that her left wrist is broken. She denies any trauma to her wrist. [facility] Medical History Multinodular thyroid Asthma Fibromyalgia Surgical History Hx of ultrasound guided needle biopsy History of endometrial ablation Hx of bilateral breast reduction surgery History of tubal ligation History of surgery H/O LEEP Family History Father HTN (hypertension) Diabetes mellitus Mother High cholesterol Thyroid disease Maternal Grandfather Cancer Maternal Grandmother Cancer Paternal Grandmother Colon cancer Maternal Aunt Breast cancer Social History Household Members: Spouse Housing: House Alcohol intake: never Patient Tobacco Use Status: Never used Tobacco Second Hand Smoke Exposure: No Current occupational status: employed 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 Sexual orientation: Straight/Heterosexual Gender identity: Female Review of Systems [facility] [place] Reports arthralgias Physical Exam Vital Signs: Last Vital Signs Temp 97 F 06/12/23 14:03 Pulse 83 06/12/23 14:03 BP 110/80 06/12/23 14:03 Pulse Ox 97 06/12/23 14:03 Oxygen Delivery Method Room Air 06/12/23 14:03 BMI result Body Mass Index 24.5 Const General: cooperative, healthy appearing and comfortable Nutritional Appearance: average body habitus Orientation/consciousness: patient oriented x3 Limitations: no limitations HEENT Head: Yes normocephalic and Yes atraumatic Mouth: moist mucous membranes Resp Effort & Inspection: normal respiratory effort and able to speak in complete sentences Auscultation: clear to auscultation bilaterally Cardio Rate: regular rate Rhythm: regular rhythm GI Palpation (GI): Soft to palpation Skin General skin exam: no rashes or lesions noted Neuro General: patient oriented x3 Extrem Other: No swollen joints. Tenderness across the ulnar aspect of the left wrist and forearm without swelling Multiple fibromyalgia tender points Assessment & Plan Assessment & Plan (1) Fibromyalgia: Code(s): M79.7 - Fibromyalgia Plan: Previously with chronically mildly elevated inflammatory markers, negative serology, negative US of hands. MRIs of bilateral feet were normal. Previously had no response to Plaquenil and prednisone.? There is no evidence of synovitis on exam today. Patients symptoms are consistent with fibromyalgia. Patient with multiple fibromyalgia tender points on exam. She continues to manage her symptoms with exercise and cyclobenzaprine. Continue cyclobenzaprine 10 mg po at bedtime. Uses ibuprofen sparingly. More recently she has been having pain on the outer aspect of her left wrist, without any trauma. There is no swelling on exam. Advised patient to start wearing a watch and the right wrist. Will check an x-ray Flexeril refilled. Follow-up in 6 months Plan I spent 26 minutes reviewing patient's chart, evaluating patient, ordering diagnostic workup, counseling patient and documenting in the chart Orders: Orders XR hand wrist LT Today M25.542 - Pain in joints of left hand Medications: Changed From ibuprofen 400 mg PO Q8H PRN pain To ibuprofen 400 mg PO DAILY PRN 20 tabs 0RF pain Refilled cyclobenzaprine 10 mg PO BEDTIME PRN 90 tabs 1RF muscle spasm M79.7 - Fibromyalgia Coding Level of Care Code Est Pt Level 4 (77470) Diagnoses Fibromyalgia M79.7
[2023-06-12 14:03] VITALS: BP 110/80; PULSE 83; TEMP 36.1; O2SAT 97; BMI 24.5
== END 2023-06-12 14:18 | disposition home or self-care (01) ==
PROVIDERS: PCP Physician Assistant Medical; Visit Provider Student in an Organized Health Care Education/Training Program
DX: M79.7 Fibromyalgia (principal)
CPT/HCPCS: 99214

== ENCOUNTER 2023-06-12 13:54 | Outpatient (REF) | payer OTHER, SELFPAY ==
[2023-06-12 17:19] LABS: CT PCR NOT DETECTED (Not Detect.); NG PCR NOT DETECTED (Not Detect.)
[2023-06-13 12:48] LABS: BV Int Neg Control Negative (Negative); BV Int Pos Control Positive (Positive)
== END 2023-06-12 13:55 | disposition home or self-care (01) ==
LOC: HO.LNP 13:54
PROVIDERS: Advanced Practice Midwife; PCP Physician Assistant Medical; Visit Provider Student in an Organized Health Care Education/Training Program
DX: Z01.419 Encounter for gynecological examination (general) (routine) without abnormal findings (principal); R10.2 Pelvic and perineal pain; N89.8 Other specified noninflammatory disorders of vagina; M79.7 Fibromyalgia; M25.542 Pain in joints of left hand; Z79.899 Other long term (current) drug therapy
CPT/HCPCS: 0353U; 87480; 87510; 87660

== ENCOUNTER 2023-06-12 14:27 | Outpatient (AMB) | payer OTHER, SELFPAY ==
--- NOTE | 2023-06-12 14:29 | A.OFFVIS_ITS ---
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 Doing well with concerns: pelvic cramping, history of cysts and fibroids, has vaginal itching and irritation. She tries to eat healthy and stays active with exercise. No bleeding since ablation. Having hot flashes. Currently is sexually active. STI screening offered; she accepts. Declines blood work. Denies family history of breast, ovarian or colon cancer. Last pap smear 2021, negative. Mammogram: Up-to-date. [facility] Medical History Multinodular thyroid Asthma Fibromyalgia Surgical History Hx of ultrasound guided needle biopsy History of endometrial ablation Hx of bilateral breast reduction surgery History of tubal ligation History of surgery H/O LEEP Family History Father HTN (hypertension) Diabetes mellitus Mother High cholesterol Thyroid disease Maternal Grandfather Cancer Maternal Grandmother Cancer Paternal Grandmother Colon cancer Maternal Aunt Breast cancer Social History Household Members: Spouse Housing: House Alcohol intake: never Patient Tobacco Use Status: Never used Tobacco Second Hand Smoke Exposure: No Current occupational status: employed 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 Sexual orientation: Straight/Heterosexual Gender identity: Female Female Reproductive History Menstrual Total pregnancies: 2 Full term: 2 Number of Living Children: 2 Date of last pap smear: 04/20/22 (neg pap and hpv) History of abnormal pap smear: Yes (12/24 hgsil / colpo nelson 1 03/26 leep nelson 1 09/26 ascus) Date of Mammogram: 05/14/23 (Birad 2) Review of Systems Const All systems reviewed & are unremarkable except as noted in HPI and below Reports as per HPI Eyes Reports no additional complaints ENT Reports no additional complaints Card Reports no additional complaints Resp Reports no additional complaints GI Reports as per HPI and Reports no additional complaints Reports as per HPI Musc Reports no additional complaints Skin/Breast Reports as per HPI Neuro Reports no additional complaints Psych Reports no additional complaints Endo Reports no additional complaints Waletr/Lymph Reports no additional complaints Aller/Immun Reports no additional complaints Physical Exam Vital Signs: Last Vital Signs BP 110/70 06/12/23 14:31 BMI result Body Mass Index 24.6 Const General: cooperative, healthy appearing, no acute distress, well developed and alert Orientation/consciousness: patient oriented x3 HEENT Head: Yes normal to inspection Eyes General: appearance normal, both eyes and all related structures Neck Neck: Yes normal visual inspection Thyroid: Thyroid normal Chest Other: Bilateral breast reduction scarring Chest palpation & inspection: normal inspection of the chest and other (no puckering, dimpling, peau de orange, retraction, discharge, masses) Breast/axilla inspection: normal inspection of the breasts Breast/axilla palpation: normal palpation of the breasts Resp Effort & Inspection: normal respiratory effort GI Inspection: Yes normal to inspection Palpation (GI): Soft to palpation Rectal Exam - Female: deferred General: Yes bladder normal to palpation External Female Exam: normal external appearance and normal appearance of the urethra Speculum Exam - Vagina: normal appearance of the vagina, normal palpation and normal vaginal discharge Speculum Exam - Cervix: normal appearance of the cervix, normal palpation and Other cervical findings present (Post LEEP appearance) Bimanual exam- vagina & uterus: normal bimanual exam, normal palpation, uterine size normal, bladder normal to palpation, normal palpation and non-tender Bimanual Exam- Adnexa, other: no masses Skin General skin exam: no rashes or lesions noted Rashes: no rashes Neuro General: patient oriented x3 Cognition (Neuro): normal cognition Extrem General: Yes normal to inspection Psych Attitude: cooperative Thought process: Normal thought process present Assessment & Plan Assessment & Plan (1) Encounter for well woman exam with routine gynecological exam: Code(s): Z01.419 - Encounter for gynecological examination (general) (routine) without abnormal findings Plan Discussed: Current recommendations for pap smears per ASCCP guidelines. Breast awareness and periodic breast exams. Maintain a healthy lifestyle including a well balanced diet and routine exercise. Mammogram yearly. Colonoscopy >45, or at risk sooner. Advised to speak to her primary care for referral. Pelvic ultrasound, plan follow-up in person. GC chlamydia and BV panel obtained. Discussed transitioning of perimenopause to menopause. Discussed self-help measures for hot flashes. Follow up p.r.n. as needed. Reading recommendation in example: The wisdom of menopause. Reputable web sites on the web for medical information. All of her questions and concerns were addressed to the best of my ability. 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 This note is constructed using voice recognition software. While every effort has been made to ensure accuracy, water gas operator errors may have been included. Orders: Orders US pelvic and transvaginal Today R10.2 - Pelvic and perineal pain Coding Level of Care Code Est Pt Prev Care 40-64y(09667) Diagnoses Encounter for well woman exam with routine gynecological exam Z01.419
[2023-06-12 14:31] VITALS: BP 110/70; BMI 24.6
== END 2023-06-12 15:04 | disposition home or self-care (01) ==
LOC: HO.HWS 14:27
PROVIDERS: PCP Physician Assistant Medical; Visit Provider Advanced Practice Midwife
DX: Z01.419 Encounter for gynecological examination (general) (routine) without abnormal findings (principal)
CPT/HCPCS: 99396

== ENCOUNTER 2023-06-12 14:58 | Outpatient (REF) | payer OTHER, SELFPAY ==
--- NOTE | ~2023-06-12 | XR_ITS ---
EXAMINATION: XR WRIST, LEFT XR HAND, LEFT CLINICAL INFORMATION: Hand pain COMPARISON: None available. TECHNIQUE: PA, lateral, and oblique views of the left wrist and PA, lateral, and oblique views of the left hand FINDINGS: LEFT WRIST: The bones and soft tissues are normal. No fracture. Alignment is anatomic. Joint spaces are maintained. No erosions or soft tissue calcifications. LEFT HAND: The bones and soft tissues are normal. No fracture. Alignment is anatomic. Joint spaces are maintained. No erosions or soft tissue calcifications. XR/XR hand wrist LT IMPRESSION: Normal left hand and wrist.
== END 2023-06-12 14:59 | disposition home or self-care (01) ==
LOC: HO.LAB 14:58
PROVIDERS: Absent Provider Student in an Organized Health Care Education/Training Program; PCP Physician Assistant Medical; Referring Provider Advanced Practice Midwife; Visit Provider Advanced Practice Midwife
DX: M25.542 Pain in joints of left hand (principal)
CPT/HCPCS: 73110; 73130

== ENCOUNTER 2023-06-26 15:34 | Outpatient (AMB) | payer OTHER, SELFPAY ==
[2023-06-26 15:38] VITALS: BP 102/62; PULSE 76; O2SAT 98; BMI 25.0
--- NOTE | 2023-06-26 15:38 | MHC.OFFVIS ---
Intake Vital Signs 06/26/23 15:38 Height 5 ft 7 in Weight 159 lb 13.362 oz BMI 25.0 BP 102/62 Blood Pressure Location Rt brachial Position Sitting Pulse 76 Pulse Source Doppler Pulse Oximetry (%) 98 Oxygen Delivery Method Room Air Intake Visit Reasons: Asthma Allergies No Known Allergies Allergy (Verified 06/12/23 14:31) HPI Asthma HPI Details 47-year-old lady, lifetime nonsmoker, with underlying history of fibromyalgia followed for moderate to severe persistent asthma and environmental allergies.? She has been using Symbicort 160 and albuterol MDI with good control of her underlying symptoms.? She denies any recent exacerbations.? Her allergies continue to be well controlled on as needed Flonase and Zyrtec. [facility] Medical History Multinodular thyroid Asthma Fibromyalgia Surgical History Hx of ultrasound guided needle biopsy History of endometrial ablation Hx of bilateral breast reduction surgery History of tubal ligation History of surgery H/O LEEP Family History Father HTN (hypertension) Diabetes mellitus Mother High cholesterol Thyroid disease Maternal Grandfather Cancer Maternal Grandmother Cancer Paternal Grandmother Colon cancer Maternal Aunt Breast cancer Social History Household Members: Spouse Housing: House Alcohol intake: never Patient Tobacco Use Status: Never used Tobacco Second Hand Smoke Exposure: No Current occupational status: employed 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 Sexual orientation: Straight/Heterosexual Gender identity: Female Review of Systems Const Denies daytime sleepiness, Denies excessive sweating, Denies fatigue, Denies fever(s), Denies lethargy, Denies malaise, Denies night sweats, Denies snoring and Denies weight loss Eyes Denies blurry vision and Denies itchy eyes ENT Denies nasal congestion, Denies post nasal drip, Denies sinus pain, Denies sinus pressure and Denies other ( Thrush) Card Denies chest pain, Denies pedal edema, Denies dyspnea, Denies orthopnea and Denies paroxysmal nocturnal dyspnea Resp Denies cough, Denies hemoptysis, Denies excessive phlegm production, Denies dyspnea, Denies snoring and Denies wheezing GI Denies abdominal pain and Denies heartburn Musc Denies myalgias, Denies arthralgias and Denies joint swelling Skin/Breast Denies rash Neuro Denies memory loss and Denies seizure-like activity Psych Denies abnormal sleep pattern, Denies anxiety and Denies memory loss Endo Denies excessive sweating, Denies fatigue and Denies heat intolerance Walter/Lymph Denies easy bruising Aller/Immun Denies itchy eyes, Denies seasonal rhinorrhea and Denies wheezing Physical Exam Vital Signs: Last Vital Signs Pulse 76 06/26/23 15:38 BP 102/62 06/26/23 15:38 Pulse Ox 98 06/26/23 15:38 Oxygen Delivery Method Room Air 06/26/23 15:38 BMI result Body Mass Index 25.0 Const General: no acute distress and alert Nutritional Appearance: not obese Orientation/consciousness: Other orientation findings ( oriented) HEENT Head: Yes atraumatic Eyes General: appearance normal, both eyes and all related structures Sclerae: sclerae normal EOM: EOMs intact bilaterally Neck Neck: Yes supple Lymphatic: no lymphadenopathy noted Resp Effort & Inspection: normal respiratory effort and no use of accessory muscles Auscultation: clear to auscultation bilaterally Cardio Rate: regular rate Rhythm: regular rhythm Heart sounds: no gallops, no murmurs and no rubs Skin General skin exam: other ( warm) Extrem General: No clubbing, No cyanosis and No edema Assessment & Plan Assessment & Plan (1) Moderate persistent asthma: Code(s): J45.40 - Moderate persistent asthma, uncomplicated Plan: Well controlled on Symbicort, Spiriva, duo nebs, and albuterol MDI. Continue current regimen. (2) Environmental allergies: Code(s): Z91.09 - Other allergy status, other than to drugs and biological substances Plan: Well controlled on Zyrtec and Flonase. Continue current regimen. Coding Level of Care Code Est Pt Level 4 (47425) Diagnoses Moderate persistent asthma J45.40 Environmental allergies Z91.09
== END 2023-06-26 15:46 | disposition home or self-care (01) ==
PROVIDERS: PCP Physician Assistant Medical; Visit Provider Internal Medicine Pulmonary Disease
DX: J45.40 Moderate persistent asthma, uncomplicated (principal); Z91.09 Other allergy status, other than to drugs and biological substances
CPT/HCPCS: 99214

== ENCOUNTER → 2023-06-26 15:34 | Outpatient (BNVA) | payer OTHER, SELFPAY | PROVIDERS: PCP Physician Assistant Medical; Visit Provider Internal Medicine Pulmonary Disease ==

== ENCOUNTER 2023-07-05 15:57 | Outpatient (REF) | payer OTHER, SELFPAY ==
--- NOTE | ~2023-07-05 | US_ITS ---
EXAMINATION: US PELVIS CLINICAL INFORMATION: Pelvic pain, last menstrual period 2 weeks ago, left lower quadrant pain. Endo ablation. COMPARISON: Pelvic ultrasound of 10/19/2019. TECHNIQUE: Ultrasound of the pelvis is performed using both transabdominal and transvaginal transducers along with Doppler. Transvaginal imaging is performed due to inadequate visualization transabdominally. FINDINGS: The uterus measures 5.9 x 2.8 x 3.8 cm. Visualization limited on transabdominal portion of ultrasound exam due to multiple loops of peristalsing bowel. Innumerable echogenic foci scattered throughout the myometrium characteristic of calcifications, possibly related to degenerating fibroids; however, no discrete fibroids could be measured. Endometrial thickness is 0.2 cm. Bilateral ovaries are grossly unremarkable. Right ovary measures 2.9 x 1.2 x 2.1 cm, volume 3.7 mL. Left ovary measures 2.3 x 1.2 x 1.5 cm, volume 2.1 mL. US/US pelvic and transvaginal IMPRESSION: 1. Innumerable echogenic foci scattered throughout the myometrium characteristic of calcifications, possibly related to degenerating fibroids; however, no discrete fibroids could be measured. 2. Endometrial thickness is 0.2 cm. 3. Unremarkable bilateral ovaries.
== END 2023-07-05 15:58 | disposition home or self-care (01) ==
LOC: HO.US 15:57
PROVIDERS: PCP Physician Assistant Medical; Visit Provider Advanced Practice Midwife
DX: R10.2 Pelvic and perineal pain (principal)
CPT/HCPCS: 76830; 76856

== ENCOUNTER 2023-07-10 14:35 | Outpatient (REF) | payer OTHER, SELFPAY ==
--- NOTE | ~2023-07-10 | US_ITS ---
EXAMINATION: US THYROID CLINICAL INFORMATION: Nontoxic multinodular goiter. 05/24/2022, prior biopsy of right lower pole, right medial mid pole and right lateral mid pole nodules-benign COMPARISON: None available. TECHNIQUE: Linear transducer grayscale and color Doppler examination with attention to the region of the thyroid. FINDINGS: SIZE: Measurements of the thyroid lobes and nodules are given in sagittal, anteroposterior and transverse dimensions respectively. Right Thyroid Lobe: 5.4 x 2.8 x 2.1 cm, volume 16.6 mL. Parenchyma: The gland echotexture is heterogeneous. Thyroid vascularity is increased. Left Thyroid Lobe: 4.0 x 1.3 x 1.4 cm, volume 3.8 mL. Parenchyma: The gland echotexture is homogeneous. Thyroid vascularity is increased. Isthmus: 0.4 cm in maximum AP dimension. Estimated total number of nodules greater than or equal to 1 cm: 5. Pilot Can Router nodules are described as follows: 1. Location: Right superior. Size: 2.2 x 1.8 x 1.5 cm, volume 3.13 mL. Nodule characteristics: Composition: Solid (2). Echogenicity: Hypoechoic (2). Shape: Taller than wide (3). Margins: Extrathyroidal extension (3). Echogenic Foci: None (0). ACR TI-RADS total points: 10 ACR TI-RADS category: 5 2. Location: Right isthmus. Size: 2.6 x 1.1 x 2.1 cm, volume 3.18 mL. Nodule characteristics: Composition: Solid/almost completely solid (2). Echogenicity: Cannot be determined (1). Shape: Not taller than wide (0). Margins: Smooth (0). Echogenic Foci: None (0). ACR TI-RADS total points: 3 ACR TI-RADS category: 3 3. Location: Right mid lateral. Size: 2.0 x 1.8 x 1.5 cm, volume 2.91 mL. Nodule characteristics: Composition: Solid (2). Echogenicity: Isoechoic (1). Shape: Taller than wide (3). Margins: Extrathyroidal extension (3). Echogenic Foci: None (0). ACR TI-RADS total points: 9 ACR TI-RADS category: 5 4. Location: Right inferior medial. Size: 1.5 x 1.0 x 1.4 cm, volume 1.03 mL. Nodule characteristics: Composition: Solid (2). Echogenicity: Hypoechoic (2). Shape: Not taller than wide (0). Margins: Smooth (0). Echogenic Foci: None (0). ACR TI-RADS total points: 4 ACR TI-RADS category: 4 5. Location: Right inferior. Size: 1.6 x 1.2 x 1.4 cm, volume 1.40 mL. Nodule characteristics: Composition: Solid (2). Echogenicity: Isoechoic (1). Shape: Not taller than wide (0). Margins: Extrathyroidal extension (3). Echogenic Foci: None (0). ACR TI-RADS total points: 6 ACR TI-RADS category: 4 NODES: No lymphadenopathy is seen in the tissue surrounding the thyroid gland. 0.6 x 0.4 x 0.5 cm well-circumscribed hypoechoic nodule posterior to the left isthmus possibly represents a parathyroid gland. US/US thyroid IMPRESSION: 1. Enlarged right lobe, a normal size left lobe heterogeneous thyroid gland with increased vascularity. 2. 5 nodules on the right fulfill criteria for FNA. Some of these have been previously biopsied. Comparison with prior studies, not available at this time, is suggested. 3. Question of 0.6 cm parathyroid adenoma on the left. ACR TI-RADS RECOMMENDATION REFERENCE: Ultrasound-guided fine-needle aspiration, followup ultrasound, no further follow up. * TR1 (0 point) and TR2 (2 points): No FNA or follow up. * TR3 (3 points): FNA if more than or equal to 2.5 cm in maximum dimension, followup ultrasound in 1, 3 and 5 years if 1.5 to 2.4 cm in maximum dimension. * TR4 (4-6 points): FNA if more than or equal to 1.5 cm in maximum dimension, followup ultrasound in 1, 2, 3 and 5 years if 1 to 1.4 cm in maximum dimension. * TR5 (more than or equal to 7 points): FNA if more than or equal to 1 cm in maximum dimension, followup ultrasound every year for 5 years if 0.5 to 0.9 cm in maximum dimension. * TR3, TR4 or TR5 nodules that are below the size threshold for followup receive no follow up.
[2023-07-10 16:31] LABS: Free T4 (Free Thyroxine) 0.79 ng/dL (0.71-1.85)
== END 2023-07-10 14:36 | disposition home or self-care (01) ==
LOC: HO.US 14:35
PROVIDERS: PCP Physician Assistant Medical; Visit Provider Internal Medicine Endocrinology, Diabetes & Metabolism
DX: E04.2 Nontoxic multinodular goiter (principal)
CPT/HCPCS: 36415; 76536; 84439; 84443

== ENCOUNTER 2023-07-31 15:55 | Outpatient (AMB) | payer OTHER, SELFPAY ==
--- NOTE | 2023-07-31 15:58 | A.OFFVIS_ITS ---
Intake Vital Signs 07/31/23 15:59 Height 5 ft 7 in Weight 159 lb 6.307 oz BMI 25.0 BP 108/70 Blood Pressure Location Lt brachial Position Sitting Pulse 81 Pulse Source Pulse Oximeter Intake Visit Reasons: nontoxic multinodular goiter-confirmed Intake Note: Patient present today for Nontoxic multinodular goiter follow up visit. Machine Grainer Required: No Accompanied by: Self / Same As Patient Allergies No Known Allergies Allergy (Verified 07/31/23 15:59) Medication List - Last Reconciled 07/31/23 by Jose Torres MD acetaminophen ER (Tylenol Arthritis Pain) 1,300 mg PO DAILY PRN albuterol sulfate 90 mcg/actuation (ProAir HFA) 1 inh inhalation QID PRN 30 days cetirizine (Zyrtec) 10 mg PO DAILY cholecalciferol (vitamin D3) 25 mcg PO DAILY cyclobenzaprine 10 mg PO BEDTIME PRN fluticasone propionate 50 mcg/actuation 1 spray intranasal DAILY ibuprofen 400 mg PO DAILY PRN ipratropium-albuterol 0.5 mg-3 mg(2.5 mg base)/3 mL 3 mL inhalation Q4-6H PRN 30 days omeprazole 20 mg PO DAILY Symbicort 160-4.5 mcg/actuation (budesonide-formoterol) 2 puffs inhalation BID 30 days NS terconazole 0.8% 1 appful vaginal BEDTIME 3 days tiotropium bromide 2.5 mcg/actuation (Spiriva Respimat) 2 puffs inhalation QAM 30 days HPI HPI Comments History of Present Illness Details 46 YO F with PMHx NTMNG who is seen in F /U for a NTMNG. The patient last saw Dr. Canales on 07/05/2022 Was initially diagnosed with multinodular thyroid in 2021 after she presented to her PCP with complaints of dysphagia. Thyroid US revealed over 5 nodules within the R lobe of the thyroid. She presented for FNA biopsy with wy 05/24/2022. She underwent FNA biopsy of her RLP 1.4 cm, RMP 1.8 cm and RMP 1.6 cm thyroid nodules at that time, all with benign (bethesda category II) cytology. Her remaining nodules did not meet indication for FNA biopsy. She presents today to review these results. Currently does complain of dysphagia and occasional hoarseness of voice. Denies any palpitations, tremors, weight loss, frequent bowel movements. Denies hair loss, dry skin, heat or cold intolerance, weight gain, confusion. Denies any history of head or neck irradiation. Denies any family history of thyroid cancer. Mom also has thyroid nodules. Thyroid US: Labs: No recent pertinent labs. [facility] Medical History (Updated 07/10/23 @ 10:15 by Adenike Benoit CNM) Hx of thromboembolism Multinodular thyroid Asthma Fibromyalgia Surgical History Hx of ultrasound guided needle biopsy History of endometrial ablation Hx of bilateral breast reduction surgery History of tubal ligation History of surgery H/O LEEP Family History Father HTN (hypertension) Diabetes mellitus Mother High cholesterol Thyroid disease Maternal Grandfather Cancer Maternal Grandmother Cancer Paternal Grandmother Colon cancer Maternal Aunt Breast cancer Social History Household Members: Spouse Housing: House Alcohol intake: never Patient Tobacco Use Status: Never used Tobacco Second Hand Smoke Exposure: No Current occupational status: employed 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 There are no palpable thyroid nodules Assessment & Plan Assessment & Plan (1) Multinodular thyroid: Code(s): E04.2 - Nontoxic multinodular goiter Plan: Is a 47-year-old female with a history of multinodular goiter status post FNA of multiple nodules in the right lobe. She appears to be clinically biochemically euthyroid. The plan is to discuss options of treatment including serial ultrasounds vs left lobectomy. After a long and careful discussion with the patient., it was decided to proceed with left lobectomy considering the obstructive symptoms. I will schedule a consultation with Dr. Gonzalez and she will follow up afterwards Orders: Referrals General Surgery Referral E04.2 - Nontoxic multinodular goiter Coding Level of Care Code Est Pt Level 3 (38483) Diagnoses Multinodular thyroid E04.2
[2023-07-31 15:59] VITALS: BP 108/70; PULSE 81; BMI 25.0
== END 2023-07-31 16:23 | disposition home or self-care (01) ==
PROVIDERS: PCP Physician Assistant Medical; Visit Provider Internal Medicine Endocrinology, Diabetes & Metabolism
DX: E04.2 Nontoxic multinodular goiter (principal)
CPT/HCPCS: 99213

== ENCOUNTER → 2023-07-31 15:55 | Outpatient (BNVA) | payer OTHER, SELFPAY | PROVIDERS: PCP Physician Assistant Medical; Visit Provider Internal Medicine Endocrinology, Diabetes & Metabolism ==

== ENCOUNTER 2023-08-02 15:09 | Outpatient (AMB) | payer OTHER, SELFPAY ==
--- NOTE | 2023-08-02 15:15 | MHC.OFFVIS ---
Intake Vital Signs 08/02/23 15:18 Height 5 ft 7 in Weight 158 lb 11.725 oz BMI 24.9 BP 114/68 Intake Visit Reasons: US follow up Senior Visual Designer: Senior Visual Designer Present Allergies No Known Allergies Allergy (Verified 07/31/23 15:59) Is last menstrual period known: Yes HPI HPI Comments History of Present Illness Details Patient is here for ultrasound follow-up results. Previous visit she reported some pelvic cramping. History of multiple fibroids with an ablation/? Uterine embolization in 2019. No menses since her ablation. [facility] Medical History (Updated 07/10/23 @ 10:15 by Adenike Benoit CNM) Hx of thromboembolism Multinodular thyroid Asthma Fibromyalgia Surgical History Hx of ultrasound guided needle biopsy History of endometrial ablation Hx of bilateral breast reduction surgery History of tubal ligation History of surgery H/O LEEP Family History Father HTN (hypertension) Diabetes mellitus Mother High cholesterol Thyroid disease Maternal Grandfather Cancer Maternal Grandmother Cancer Paternal Grandmother Colon cancer Maternal Aunt Breast cancer Social History Household Members: Spouse Housing: House Alcohol intake: never Patient Tobacco Use Status: Never used Tobacco Second Hand Smoke Exposure: No Current occupational status: employed 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 Sexual orientation: Straight/Heterosexual Gender identity: Female Review of Systems Const All systems reviewed & are unremarkable except as noted in HPI and below Endo Reports no additional complaints Physical Exam Vital Signs: Last Vital Signs BP 114/68 08/02/23 15:18 BMI result Body Mass Index 24.9 Const General: cooperative, healthy appearing and no acute distress Psych Appearance: well kempt Attitude: cooperative Thought process: Normal thought process present Results Reviewed Results Reviewed: [address] [address] Ultrasound Report Signed Patient: Pauly Rodriguez MR#: [id number] : 1975 Acct:[id number] Age/Sex: 47 / F ADM Date: 07/05/23 Loc: HO.US Attending Dr: Adenike Benoit CNM Ordering Physician: Adenike Benoit CNM Date of Service: 07/05/23 Procedure(s): US pelvic and transvaginal Accession Number(s): [id number] cc: VIJAY CARR; Adenike Benoit CNM~ EXAMINATION: US PELVIS CLINICAL INFORMATION: Pelvic pain, last menstrual period 2 weeks ago, left lower quadrant pain. Endo ablation. COMPARISON: Pelvic ultrasound of 10/19/2019. TECHNIQUE: Ultrasound of the pelvis is performed using both transabdominal and transvaginal transducers along with Doppler. Transvaginal imaging is performed due to inadequate visualization transabdominally. FINDINGS: The uterus measures 5.9 x 2.8 x 3.8 cm. Visualization limited on transabdominal portion of ultrasound exam due to multiple loops of peristalsing bowel. Innumerable echogenic foci scattered throughout the myometrium characteristic of calcifications, possibly related to degenerating fibroids; however, no discrete fibroids could be measured. Endometrial thickness is 0.2 cm. Bilateral ovaries are grossly unremarkable. Right ovary measures 2.9 x 1.2 x 2.1 cm, volume 3.7 mL. Left ovary measures 2.3 x 1.2 x 1.5 cm, volume 2.1 mL. US/US pelvic and transvaginal IMPRESSION: 1. Innumerable echogenic foci scattered throughout the myometrium characteristic of calcifications, possibly related to degenerating fibroids; however, no discrete fibroids could be measured. 2. Endometrial thickness is 0.2 cm. 3. Unremarkable bilateral ovaries. Dictated By: Fiona Lott MD Signed By: <Electronically signed by Fiona Lott MD in OV> 07/09/23 0720 DD/ 1621 TD/TT: Atv Mechanic: Assessment & Plan Assessment & Plan (1) Encounter to discuss test results: Code(s): Z71.2 - Person consulting for explanation of examination or test findings Plan Discussed: Ultrasound findings with multiple calcifications, status post uterine procedure for treatment of fibroids could results in calcifications. No apparent cause for her left lower quadrant pain. She does report that she has history of constipation uses MiraLax for relief. Advised her to follow-up with her primary care or GI specialist for the left lower quadrant pain. Schedule annual exam for May. Follow-up as needed p.r.n. for any coagulating bath mixer concerns. All of her questions and concerns were addressed to the best of my ability and shared decision making. She is agreeable to the plan of care. This note is constructed using voice recognition software. While every effort has been made to ensure accuracy, wool hat finisher errors may have been included. Coding Level of Care Code Est Pt Level 3 (92086) Diagnoses Encounter to discuss test results Z71.2
[2023-08-02 15:18] VITALS: BP 114/68; BMI 24.9
== END 2023-08-02 15:42 | disposition home or self-care (01) ==
LOC: HO.HWS 15:09
PROVIDERS: PCP Physician Assistant Medical; Visit Provider Advanced Practice Midwife
DX: Z71.2 Person consulting for explanation of examination or test findings (principal)
CPT/HCPCS: 99213

== ENCOUNTER → 2023-08-02 15:09 | Outpatient (BNVA) | payer OTHER, SELFPAY | PROVIDERS: PCP Physician Assistant Medical; Visit Provider Advanced Practice Midwife ==

== ENCOUNTER 2023-12-12 10:48 | Outpatient (AMB) | payer OTHER, SELFPAY ==
[2023-12-12 11:22] VITALS: BP 102/64; PULSE 75; O2SAT 97; BMI 24.6
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
== END 2023-12-12 11:37 | disposition home or self-care (01) ==
PROVIDERS: PCP Physician Assistant Medical; Visit Provider Student in an Organized Health Care Education/Training Program
DX: M79.7 Fibromyalgia (principal)
CPT/HCPCS: 99213

== ENCOUNTER → 2023-12-12 10:48 | Outpatient (BNVA) | payer OTHER, SELFPAY | PROVIDERS: PCP Physician Assistant Medical; Visit Provider Student in an Organized Health Care Education/Training Program ==

== ENCOUNTER → 2024-05-19 16:00 | Outpatient (BNV) | payer OTHER, SELFPAY | PROVIDERS: PCP Registered Nurse; Visit Provider Internal Medicine | DX: Z12.31 Encounter for screening mammogram for malignant neoplasm of breast (principal) | CPT/HCPCS: 77063; 77067 ==

== ENCOUNTER 2024-05-19 16:02 | Outpatient (REF) | payer OTHER, SELFPAY ==
--- NOTE | ~2024-05-19 | MM_ITS ---
EXAMINATION: MM SCREENING DIGITAL BREAST TOMOSYNTHESIS, BILATERAL CLINICAL INFORMATION: Screening. Asymptomatic. COMPARISON: Mammography: Comparison is made with available priors TECHNIQUE: Digital breast mammography with tomosynthesis is performed in both the craniocaudal and mediolateral oblique views along with computer-aided detection (CAD). FINDINGS: There are scattered areas of fibroglandular density (ACR BI-RADS breast composition Category b). Bilateral reduction mammoplasty. There are no significant masses, abnormal calcifications, or other abnormalities. MM/MM tomosynthesis screening BI IMPRESSION: No mammographic evidence of malignancy. ASSESSMENT: BI-RADS BI-RADS 2 - Benign Findings RECOMMENDATION: Routine annual mammography screening. 1 year F/U This examination should not preclude the clinical evaluation of a suspicious palpable abnormality. This patient's information was entered into a reminder system with a target due date for their next mammogram. Electronically signed by: Yi Jacinto DO 05/26/2024 08:50 AM SNOW
--- OUTSIDE RECORDS SUMMARY | 2024-05-26 15:21 | XMS_ITS | Continuity of Care Document ---
Author Organization [facility] Address [address] [place] [id number] Care Team Providers Care Sand Mixer Machine Name Role Phone Delfina Barker Primary Care Physician Encounter [facility] ACCT R [id number] Date(s): 04/15/24 - 05/15/24 [facility] [address], [place] [address] Attending Physician: Lul Contreras Admitting Physician: Lul Contreras Referring Physician: Lul Contreras Encounter Type: Triage Allergies, Adverse Reactions, Alerts No Known Medication Allergies Medications albuterol CFC free 90 mcg/inh inhalation aerosol 2, puffs, Inhalation, 4 times a day, PRN, # 1 each, Refills 0, Tot. Refills 0, Maintenance, 06/13/16 10:34:42 AM EST, Route to Pharmacy Electronically, [id number], [facility]/pharmacy #[id number] Start Date: 06/13/16 Status: Ordered Quantity: 1.0 Unit: each Repeat number: 1 Flexeril 10 mg oral tablet By Mouth, Daily, Refills 0, Maintenance, 11/07/23 4:42:00 PM EDT, Partial fill upon patient request if the prescription is for a schedule II opioid drug. Start Date: 11/07/23 Status: Ordered Repeat number: 1 Flonase 50 mcg/inh nasal spray 1 sprays, Nares, Both, 2 times a day, # 16 Gm, 0 Refills, Maintenance, 09/28/14 4:42:30 PM EDT, [place], [facility]/pharmacy #[id number], 1 sprays Nares, Both 2 times a day Start Date: 09/28/14 Status: Ordered Quantity: 16.0 Unit: g Repeat number: 1 lidocaine 5% topical film 1 patch, Topically, Daily, PRN Pain , Mild, remove after 12 hours, # 13 each, 0 Refills, Maintenance, 09/30/21 2:26:00 PM EDT, [place], [facility]/pharmacy #[id number], Partial fill upon patient request if the prescription is for a schedule II opioid drug., 1 patch Topically Daily,PRN:Pain , Mild,Instr:remove after12 hours, 163, cm, 09/30/21 13:56:00 EDT, Height, 66, kg, 02/23/21 9:45:00 EDT, Dry Weight Start Date: 09/30/21 Status: Ordered Quantity: 13.0 Unit: each Repeat number: 1 Lyrica Capsule = 10 mg, By Mouth, Daily, 0 Refills, Maintenance, 06/22/15 11:18:52 AM EST Start Date: 06/22/15 Status: Ordered Repeat number: 1 PEG-3350 with Electrolytes Lemon (Eqv-GoLYTELY) oral powder for reconstitution 240 mL, By Mouth, Every 10 minutes, until 4 liters are consumed or the rectal effluent is clear, # 4,000 mL, 0 Refills, Maintenance, 04/15/24 4:29:00 PM EDT, REC Powder, [facility]/pharmacy #[id number], Partial fill upon patient request if the prescription is for a schedule II opioid drug., 240 mL By Mouth Every 10 minutes,Instr:until 4 liters are consumed or the rectal effluent is clear, 163, cm, 04/15/24 15:59:00 EDT, Height Start Date: 04/15/24 Status: Ordered Quantity: 4000.0 Unit: mL Repeat number: 1 ProAir HFA 90 mcg/inh inhalation aerosol with adapter 1 puffs, Inhalation, 4 times a day, PRN for wheezing, # 8.5 Gm, 0 Refills, Maintenance, 07/18/15 1:28:20 PM EST, Aerosol, [facility]/pharmacy #[id number], 1 puffs Inhalation 4 times a day,PRN:for wheezing Start Date: 07/18/15 Status: Ordered Quantity: 8.5 Unit: g Repeat number: 1 ZyrTEC 10 mg oral tablet 1 tablet = 10 mg, By Mouth, Daily, 0 Refills, Maintenance, 01/27/16 1:42:38 PM EDT Start Date: 01/27/16 Status: Ordered Repeat number: 1 Problem List Condition Confirmation Course Effective Dates Status Health St atus Informant Mammogram abnormal Confirmed Active Breast pain Confirmed Active Social History Social History Type Response Smoking Status Never smoker entered on: 05/31/14 Sex Sex Representation Female (finding) Patient Care team information Care Team Personnel Name: Delfina Barker Position: Reference Physician Member Role: PCP Address: [address] [place] [address], [address] [place] [address] Telecom: Care Team Related Persons Name: ELIECER OROZCO Name: MAURO SMITH Insurance Providers Guarantor name: ARMANDO GREENWOOD Health Plan Information #: 1 Payer: [facility] [facility] Member Number: NA Policy Number: NA Group Number: NA
--- OUTSIDE RECORDS SUMMARY | 2024-05-26 15:21 | XMS_ITS | Data Portability ---
Author Organization [facility], Main Office Address [address] [place] [id number] Care Team Providers Care Windows Systems Architect Name Role Phone [facility] Cloth Grader Supervisor [phone] [facility] Gy[address] st KATT LOPEZ Primary Care Provider [phone] Assessment No assessment recorded. Plan of Treatment Reminders Order Date Submit Date Provider Last Modified By Organization Details Last Modified Time Details Appointments None recorded. Lab TSH, serum or plasma 2022 023 LATA [facility], [address], [address], [place], [address], 3 17:40:02 BMP, serum or plasma 2022 023 LATA [facility], [address], [address], [place], [address], 3 17:38:39 rapid flu (A+B) 2022 023 LATA In-Office Order, Internal Use Only DO Not Attach Compendium DO Not Attach Compendium, Do Not Delete/merge, [id number] 3 15:02:36 strep group A, DNA, swab 2022 023 LATA In-Office Order, Internal Use Only DO Not Attach Compendium DO Not Attach Compendium, Do Not Delete/merge, [id number] 3 14:52:17 lipid panel, serum 2022 023 LATA [facility], [address], [address], [place], [address], 3 15:04:45 CBC w/ auto diff 2023 024 LATA [facility], [address], [address], [place], [address], 4 06:08:28 TSH + free T4, serum 2023 024 LATA [facility], [address], [address], [place], [address], 4 06:08:28 CMP, serum or plasma 2023 024 LATA [facility], [address], [address], [place], [address], 4 06:08:29 lipid panel, serum 2023 024 LATA [facility], [address], [address], [place], [address], 4 06:08:30 vitamin B12 + folate, serum or blood 2023 024 [facility], [address], [place], [address], 4 06:08:30 iron + TIBC + ferritin, serum 2023 024 LATA [facility], [address], [address], [place], [address], 4 06:08:27 HbA1c (hemoglobin A1c), blood 2023 024 LATA [facility], [address], [address], [place], [address], 4 06:08:31 vitamin D, 25-hydroxy, total, serum 2023 024 LATA [facility], [address], [place], [address], 4 06:08:31 Referral cardiologis t referral - Ongoing palpitation s since COVID in 2021. Even monitor is indicated. Echo and labs ordered. 2022 023 alida [facility], [address], [address], [place], [address], 3 11:59:07 physical therapist referral - lumbar and right hip 2022 023 [email or web address] Not available 4 13:05:27 gynecologis t referral 2022 023 LATA Not available 3 15:07:32 spine center referral - upper and lower back pain, XR 2022 showed moderate degenerativ e changes. 2023 024 [facility], [address] [place], [address], 4 15:24:24 spine center referral - upper and lower back pain, XR 2022 showed moderate degenerativ e changes. [address] [facility], [address] [facility], [place], [address], 4 15:24:24 gastroenter ologist referral - Needs colon cancer screening 2023 024 alida [facility], [address], [address], [place], [address], 4 14:50:21 Procedures cerumen removal (PROC) 2022 023 LATA In-Office Order, Internal Use Only DO Not Attach Compendium DO Not Attach Compendium, Do Not Delete/merge, [id number] 3 16:42:22 Surgeries None recorded. Imaging electrocard iogram 2022 023 [email or web address] In-Office Order, Internal Use Only DO Not Attach Compendium DO Not Attach Compendium, Do Not Delete/merge, [id number] 3 11:29:52 US, echocardiog reji - Palpitation s post COVID 19. 2022 023 alida [facility]), [address], [place], [address], 3 16:05:04 XR, lumbosacral spine, 2 or 3 view 2022 023 [email or web address] Not available 3 15:19:17 XR, hip, unilateral, 2 or 3 view 2022 023 LATA Not available 3 11:22:05 MAMMO, screening, bilateral 2022 023 LATA Not available 3 15:07:59 Medication Orders pred[facility]one 20 mg tablet 2022 [facility]23 [id number], [address] [facility], [place], [address], 3 14:31:07 prednisone 20 mg tablet 2022 023 [id number], [address] [place], [address], 3 14:31:07 Patient TargetsNo targets recorded. Patient Instructions Encounter Date Encounter Id Patient Instructions Last Modified By Organization Details Last Modified Time 11/20/2022 [id number] To call or retur n for worsening or concerns [email or web address] Not available 11/20/2022 14:32:56 01/14/2024 [id number] low back pain: exercises [email or web address] Not available 01/14/2024 15:20:18 back care and preventing injuries: care instructions [email or web address] Not available 01/14/2024 15:20:18 fibromyalgia: care instructions [email or web address] Not available 01/14/2024 15:20:19 asthma in adults : care instructions [email or web address] Not available 01/14/2024 15:20:19 learning about colon cancer jthabet Not available 01/14/2024 15:08:01 To call or retur n for worsening or concerns [email or web address] Not available 01/14/2024 13:30:42 Reason for Referral 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 Even monitor is indicated. Echo and labs ordered. Referring Physician: Michaelle Wallace, Internal Medicine, Encounter Date: 09/11/2022 Physical Therapist Referral for Pain in right hip joint lumbar and right hip Referring Physician: Lubna Cano, Family Medicine, Encounter Date: 12/31/2022 Intensive Care Unit Nurse Referral for Sc reening for malignant neoplasm of cervix Referring Physician: Michaelle Wallace, Internal Medicine, Encounter Date: 01/08/2023 Fiberglass Product Tester Referral for Screening for malignant neoplasm of colon Needs colon cancer screening Referring Physician: Katt Lopez [facility], Encounter Date: 01/14/2024 Spine Center Referral for Ch ronic low back pain upper and lower back pain, XR 2022 showed moderate degenerative changes. Referring Physician: Katt Lopez [facility], Encounter Date: 01/14/2024 Spine Center Referral for Th oracic back pain upper and lower back pain, XR 2022 showed moderate degenerative changes. Referring Physician: Katt Lopez [facility], Encounter Date: 01/14/2024 Results Created Date Observation Date Name Description Value Unit Range Abnormal Flag Note LastModifiedBy Organization Detail LastModifiedTime 09/12/1909/11/2022 BASIC METAB OLIC PANEL glucose 104 mg/dL (70-99 ) high Not Available [facility] [address] [place], [address], 09/11/2022 17:38:39 09/12/19 23 09/11/2022 BASIC METAB OLIC PANEL BUN 10 mg/dL (6-20) Not Available [facility] [address] [place], [address], 09/11/2022 17:38:39 09/12/19 23 09/11/2022 BASIC METAB OLIC PANEL creatinine 0.8 mg/dL (0.5-1 .0) Not Available [facility] [address] [place], [address], 09/11/2022 17:38:39 09/12/19 23 09/11/2022 BASIC METAB OLIC PANEL sodium 138 mmol/ L (133-1 45) Not Available [facility] [address] [place], [address], 09/11/2022 17:38:39 09/12/19 23 09/11/2022 BASIC METAB OLIC PANEL potassium 4.3 mmol/ L (3.6-5 .2) Not Available [facility] [address] [place], [address], 09/11/2022 17:38:39 09/12/19 23 09/11/2022 BASIC METAB OLIC PANEL chloride 104 mmol/ L (98-10 7) Not Available [facility] [address] [place], [address], 09/11/2022 17:38:39 09/12/19 23 09/11/2022 BASIC METAB OLIC PANEL bicarbonate 27 mmol/ L (22-29 ) Not Available [facility] [address] [place], [address], 09/11/2022 17:38:39 09/12/19 23 09/11/2022 BASIC METAB OLIC PANEL anion gap 7 (4-17) Not Available [facility] [address] [place], [address], 09/11/2022 17:38:39 09/12/19 23 09/11/2022 BASIC METAB OLIC PANEL calcium 9.8 mg/dL (8.6-1 0.5) Not Available [facility] [address] [place], [address], 09/11/2022 17:38:39 09/12/19 23 09/11/2022 BASIC METAB OLIC PANEL estimated GFR creatinine 91 mL/mi n/1.7 3_M2 Creat inine based estim ated glome rular filtr ation (eGFR ) in adult s is calcu lated using the Natio nal Kidne y Found ation recom isela d 2020 CKD-E PI equat ion. Estim ates GFR from serum creat inine , age and sex. Not Available [facility] [address] [place], [address], 09/11/2022 17:38:39 09/12/19 23 09/11/2022 TSH TSH 1.93 uIU/m L (0.4-4 .2) Not Available [facility] [address] [place], [address], 09/11/2022 17:40:01 11/21/19 23 11/20/2022 rapid flu (A+B) Flu A negati ve Not Available In-Office Order Internal Use Only DO Not Attach Compendium DO Not Attach Compendium, Do Not Delete/merge, [id number] 11/20/2022 14:32:23 11/21/19 23 11/20/2022 rapid flu (A+B) Flu B negati ve Not Available In-Office Order Internal Use Only DO Not Attach Compendium DO Not Attach Compendium, Do Not Delete/merge, [id number] 11/20/2022 14:32:23 11/21/19 23 11/20/2022 strep group A, DNA, swab ID NOW Strep A 2 (rapid molecular test) negati ve Not Available In-Office Order Internal Use Only DO Not Attach Compendium DO Not Attach Compendium, Do Not Delete/merge, [id number] 11/20/2022 14:32:27 01/09/20 23 01/08/2023 cerum en remov al (PROC ) done by Bolivar lee Not Available In-Office Order Internal Use Only DO Not Attach Compendium DO Not Attach Compendium, Do Not Delete/merge, [id number] 01/08/2023 15:05:19 01/17/20 24 01/18/2024 FE+TI BC+FE R iron bind.cap.(TI BC) 303 ug/dL 250-45 0 normal Not Available [facility] [address] [place], [address], 01/18/2024 06:08:27 01/17/20 24 01/18/2024 FE+TI BC+FE R UIBC 234 ug/dL 131-42 5 normal Not Available [facility] ([facility]) [address] [place], [address], 01/18/2024 06:08:27 01/17/20 24 01/18/2024 FE+TI BC+FE R iron 69 ug/dL 27-159 normal Not Available [facility] ([facility]) [address] [place], [address], 01/18/2024 06:08:27 01/17/20 24 01/18/2024 FE+TI BC+FE R iron saturation 23 % 15-55 normal Not Available [facility] ([facility]) [address] [place], [address], 01/18/2024 06:08:27 01/17/20 24 01/18/2024 FE+TI BC+FE R ferritin 134 NG/mL 15-150 normal Not Available [facility] ([facility]) [address] [place], [address], 01/18/2024 06:08:27 01/17/20 24 01/17/2024 TSH+F REE T4 TSH 2.100 uIU/m L 0.450- 4.500 normal Not Available [facility] ([facility]) [address] [place], [address], 01/18/2024 06:08:28 01/17/20 24 01/17/2024 TSH+F REE T4 T4,free(dire ct) 0.83 NG/dL 0.82-1 .77 normal Not Available [facility] ([facility]) [address] [place], [address], 01/18/2024 06:08:28 01/17/20 24 01/18/2024 CBC WITH DIFFE RENTI AL/PL ATELE T WBC 7.0 x10e3 /uL 3.4-10 .8 normal Not Available [facility] ([facility]) [address] [facility], [place], [address], 01/18/2024 06:08:28 01/17/20 24 01/18/2024 CBC WITH DIFFE RENTI AL/PL ATELE T RBC 4.68 x10e6 /uL 3.77-5 .28 normal Not Available [facility] ([facility]) [address] [facility], [place], [address], 01/18/2024 06:08:28 01/17/20 24 01/18/2024 CBC WITH DIFFE RENTI AL/PL ATELE T hemoglobin 13.8 g/dL 11.1-1 5.9 normal Not Available [facility] ([facility]) [address] [facility], [place], [address], 01/18/2024 06:08:28 01/17/20 24 01/18/2024 CBC WITH DIFFE RENTI AL/PL ATELE T hematocrit 43.3 % 34.0-4 6.6 normal Not Available [facility] ([facility]) [address] [facility], [place], [address], 01/18/2024 06:08:28 01/17/20 24 01/18/2024 CBC WITH DIFFE RENTI AL/PL ATELE T MCV 93 fL 79-97 normal Not Available [facility] ([facility]) [address] [facility], [place], [address], 01/18/2024 06:08:28 01/17/20 24 01/18/2024 CBC WITH DIFFE RENTI AL/PL ATELE T MCH 29.5 pg 26.6-3 3.0 normal Not Available [facility] ([facility]) [address] [place], [address], 01/18/2024 06:08:28 08/02/20 24 01/18/2024 CBC WITH DIFFE RENTI AL/PL ATELE T MCHC 31.9 g/dL 31.5-3 5.7 normal Not Available [facility] ([facility]) [address] [facility], [place], [address], 01/18/2024 06:08:28 01/17/20 24 01/18/2024 CBC WITH DIFFE RENTI AL/PL ATELE T RDW 12.7 % 11.7-1 5.4 Not Available [facility] ([facility]) [address] [facility], [place], [address], 01/18/2024 06:08:28 01/17/20 24 01/18/2024 CBC WITH DIFFE RENTI AL/PL ATELE T platelets 268 x10e3 /uL 150-45 0 normal Not Available [facility] ([facility]) [address] [facility], [place], [address], 01/18/2024 06:08:28 01/17/20 24 01/18/2024 CBC WITH DIFFE RENTI AL/PL ATELE T neutrophils 51 % not estab. normal Not Available [facility] ([facility]) [address] [facility], [place], [address], 01/18/2024 06:08:28 01/17/20 24 01/18/2024 CBC WITH DIFFE RENTI AL/PL ATELE T lymphs 38 % not estab. normal Not Available [facility] ([facility]) [address] [facility], [place], [address], 01/18/2024 06:08:28 01/17/20 24 01/18/2024 CBC WITH DIFFE RENTI AL/PL ATELE T monocytes 7 % not estab. normal Not Available [facility] ([facility]) [address] [place], [address], 01/18/2024 06:08:28 01/17/20 24 01/18/2024 CBC WITH DIFFE RENTI AL/PL ATELE T eos 3 % not estab. normal Not Available [facility] ([facility]) [address] [place], [address], 01/18/2024 06:08:28 01/17/20 24 01/18/2024 CBC WITH DIFFE RENTI AL/PL ATELE T basos 1 % not estab. normal Not Available [facility] ([facility]) [address] [facility], [place], [address], 01/18/2024 06:08:28 01/17/20 24 01/18/2024 CBC WITH DIFFE RENTI AL/PL ATELE T immature cells EDUCATION DEPARTMENT REGISTRAR Not Available [facility] ([facility]) [address] [place], [address], 01/18/2024 06:08:28 01/17/20 24 01/18/2024 CBC WITH DIFFE RENTI AL/PL ATELE T neutrophils (absolute) 3.6 x10e3 /uL 1.4-7. 0 normal Not Available [facility] ([facility]) [address] [place], [address], 01/18/2024 06:08:28 01/17/20 24 01/18/2024 CBC WITH DIFFE RENTI AL/PL ATELE T lymphs (absolute) 2.7 x10e3 /uL 0.7-3. 1 normal Not Available [facility] ([facility]) [address] [place], [address], 01/18/2024 06:08:28 01/17/20 24 01/18/2024 CBC WITH DIFFE RENTI AL/PL ATELE T monocytes(ab solute) 0.5 x10e3 /uL 0.1-0. 9 normal Not Available [facility] ([facility]) [address] [place], [address], 01/18/2024 06:08:28 01/17/20 24 01/18/2024 CBC WITH DIFFE RENTI AL/PL ATELE T eos (absolute) 0.2 x10e3 /uL 0.0-0. 4 normal Not Available [facility] ([facility]) [address] [facility], [place], [address], 01/18/2024 06:08:28 01/17/20 24 01/18/2024 CBC WITH DIFFE RENTI AL/PL ATELE T baso (absolute) 0.1 x10e3 /uL 0.0-0. 2 normal Not Available [facility] ([facility]) [address] [facility], [place], [address], 01/18/2024 06:08:28 01/17/20 24 01/18/2024 CBC WITH DIFFE RENTI AL/PL ATELE T immature granulocytes 0 % not estab. Not Available [facility] ([facility]) [address] [facility], [place], [address], 01/18/2024 06:08:28 01/17/20 24 01/18/2024 CBC WITH DIFFE RENTI AL/PL ATELE T immature grans (abs) 0.0 x10e3 /uL 0.0-0. 1 Not Available [facility] ([facility]) [address] [facility], [place], [address], 01/18/2024 06:08:28 01/17/20 24 01/18/2024 CBC WITH DIFFE RENTI AL/PL ATELE T NRBC EDUCATION DEPARTMENT REGISTRAR Not Available [facility] ([facility]) [address] [facility], [place], [address], 01/18/2024 06:08:28 01/17/20 24 01/18/2024 CBC WITH DIFFE RENTI AL/PL ATELE T hematology comments: EDUCATION DEPARTMENT REGISTRAR Not Available [facility] ([facility]) [address] [facility], [place], [address], 01/18/2024 06:08:28 01/17/20 24 01/17/2024 COMP. METAB OLIC PANEL (14) glucose 94 mg/dL 70-99 normal Not Available [facility] ([facility]) [address] [place], [address], 01/18/2024 06:08:29 01/17/20 24 01/17/2024 COMP. METAB OLIC PANEL (14) BUN 12 mg/dL 6-24 normal Not Available [facility] ([facility]) [address] [place], [address], 01/18/2024 06:08:29 01/17/20 24 01/17/2024 COMP. METAB OLIC PANEL (14) creatinine 0.89 mg/dL 0.57-1 .00 normal Not Available [facility] ([facility]) [address] [facility], [place], [address], 01/18/2024 06:08:29 01/17/20 24 01/17/2024 COMP. METAB OLIC PANEL (14) eGFR 79 mL/mi n/1.7 3 >59 normal Not Available [facility] ([facility]) [address] [place], [address], 01/18/2024 06:08:29 01/17/20 24 01/17/2024 COMP. METAB OLIC PANEL (14) BUN/creatini ne ratio 13 9-23 normal Not Available [facility] ([facility]) [address] [place], [address], 01/18/2024 06:08:29 01/17/20 24 01/17/2024 COMP. METAB OLIC PANEL (14) sodium 142 mmol/ L 134-14 4 normal Not Available [facility] ([facility]) [address] [place], [address], 01/18/2024 06:08:29 01/17/20 24 01/17/2024 COMP. METAB OLIC PANEL (14) potassium 4.2 mmol/ L 3.5-5. 2 normal Not Available [facility] ([facility]) [address] [place], [address], 01/18/2024 06:08:29 01/17/20 24 01/17/2024 COMP. METAB OLIC PANEL (14) chloride 107 mmol/ L 96-106 above high normal Not Available [facility] ([facility]) [address] [place], [address], 01/18/2024 06:08:29 01/17/20 24 01/17/2024 COMP. METAB OLIC PANEL (14) carbon dioxide, total 21 mmol/ L 20-29 normal Not Available [facility] ([facility]) [address] [facility] [place], [address], 01/18/2024 06:08:29 01/17/20 24 01/17/2024 COMP. METAB OLIC PANEL (14) calcium 9.3 mg/dL 8.7-10 .2 normal Not Available [facility] ([facility]) [address] [facility] [place], [address], 01/18/2024 06:08:29 01/17/20 24 01/17/2024 COMP. METAB OLIC PANEL (14) protein, total 7.7 g/dL 6.0-8. 5 normal Not Available [facility] ([facility]) [address] [place], [address], 01/18/2024 06:08:29 01/17/20 24 01/17/2024 COMP. METAB OLIC PANEL (14) albumin 4.4 g/dL 3.9-4. 9 normal Not Available [facility] ([facility]) [address] [place], [address], 01/18/2024 06:08:29 01/17/20 24 01/17/2024 COMP. METAB OLIC PANEL (14) globulin, total 3.3 g/dL 1.5-4. 5 Not Available [facility] ([facility]) [address] [place], [address], 01/18/2024 06:08:29 01/17/20 24 01/17/2024 COMP. METAB OLIC PANEL (14) bilirubin, total 0.3 mg/dL 0.0-1. 2 normal Not Available [facility] ([facility]) [address] [facility] [place], [address], 01/18/2024 06:08:29 01/17/20 24 01/17/2024 COMP. METAB OLIC PANEL (14) alkaline phosphatase 117 IU/L 44-121 normal Not Available [facility]) [address] [facility] [place], [address], 01/18/2024 06:08:29 01/17/20 24 01/17/2024 COMP. METAB OLIC PANEL (14) AST (SGOT) 23 IU/L 0-40 normal Not Available [facility] ([facility]) [address] [place], [address], 01/18/2024 06:08:29 01/17/20 24 01/17/2024 COMP. METAB OLIC PANEL (14) ALT (SGPT) 32 IU/L 0-32 normal Not Available [facility] ([facility]) [address] [place], [address], 01/18/2024 06:08:29 01/17/20 24 01/17/2024 LIPID PANEL cholesterol, total 186 mg/dL 100-19 9 normal Not Available [facility] ([facility]) [address] [place], [address], 01/18/2024 06:08:30 01/17/20 24 01/17/2024 LIPID PANEL triglyceride s 132 mg/dL 0-149 normal Not Available [facility] ([facility]) [address] [place], [address], 01/18/2024 06:08:30 01/17/20 24 01/17/2024 LIPID PANEL HDL cholesterol 48 mg/dL >39 normal Not Available [facility]) [address] [place], [address], 01/18/2024 06:08:30 01/17/20 24 01/17/2024 LIPID PANEL VLDL cholesterol elliott 24 mg/dL 5-40 Not Available [facility] ([facility]) [address] [place], [address], 01/18/2024 06:08:30 01/17/20 24 01/17/2024 LIPID PANEL LDL chol calc ([facility]) 114 mg/dL 0-99 above high normal Not Available [facility] ([facility]) [address] [place], [address], 01/18/2024 06:08:30 01/17/20 24 01/17/2024 LIPID PANEL LDL calc comment: EDUCATION DEPARTMENT REGISTRAR Not Available [facility] ([facility]) [address] [facility], [place], [address], 01/18/2024 06:08:30 01/17/20 24 01/18/2024 VITAM IN B12 AND FOLAT E vitamin B12 800 pg/mL 232-12 45 normal Not Available [facility] ([facility]) [address] [place], [address], 01/18/2024 06:08:30 01/17/20 24 01/18/2024 VITAM IN B12 AND FOLAT E folate (folic acid), serum 15.0 NG/mL >3.0 normal A serum folat e zachary ntrat ion of less than 3.1 ng/mL is consi dered to repre sent clini elliott defic iency . Not Available [facility] ([facility]) [address] [facility], [place], [address], 01/18/2024 06:08:30 01/17/20 24 01/18/2024 HEMOG LOBIN A1C hemoglobin A1C 5.6 % 4.8-5. 6 normal Predi abete s: 5.7 - 6.4 Diabe shan: >6.4 Glyce manuel contr ol for adult s with diabe shan: <7.0 Not Available [facility] ([facility]) [address] [facility], [place], [address], 01/18/2024 06:08:31 01/17/20 24 01/18/2024 VITAM IN D, 25-HY DROXY vitamin D, 25-hydroxy 30.9 NG/mL 30.0-1 00.0 Vitam in D defic iency has been defin ed by the Insti tute of Medic ine and an Endoc rine Socie ty pract ice guide line as a level of serum 25-OH vitam in D less than 20 ng/mL (1,2) . The Endoc rine Socie ty went on to furth er defin e vitam in D insuf ficie ncy as a level betwe en 21 and 29 ng/mL (2). 1. IOM (Inst itute of Medic ine). 2009. Dieta ry refer ence intak es for calci um and D. Uzma arzate [place]: The [facility] Press . 2. Delilah noel MF, Jonah myrick [place], Tawanna off-F errar i PERRY, et al. Evalu ation , treat ment, and preve ntion of vitam in D defic iency : an Endoc rine Socie ty clini elliott pract ice guide line. JCEM. 2010; 96(7) :1911 -30. Not Available [facility] ([facility]) [address] [facility], [place], [address], 01/18/2024 06:08:31 09/12/19 23 09/24/2022 elect rocar diogr am No observ ation record ed. [email or web address] In-Office Order Internal Use Only DO Not Attach Compendium DO Not Attach Compendium, Do Not Delete/merge, [id number] 09/24/2022 16:13:34 09/12/19 23 elect rocar diogr am No observ ation record ed. [email or web address] In-Office Order Internal Use Only DO Not Attach Compendium DO Not Attach Compendium, Do Not Delete/merge, [id number] 09/11/2022 11:30:00 01/01/2012/31/2022 XR, hip, unila teral , 2 or 3 view Hip Comp 2 Views Right Reason : pain in right hip; COMPAR DOT: None. FINDIN GS: No fractu re or disloc ation. Well preser nilda joint space. Normal femora l head contou r withou t eviden ce of avascu lar necros is. Normal soft tissue s. IMPRES RAUDEL: Normal . WSN: [id number] Orderi ng Physic erin: Paul Eric Dictat ed By: Peg roland MD, Mariam gardner Dictat ed Date/T jesu: 11:18 a Review ed By: Peg roland MD, Mariam gardner Signed By: Peg roland MD, Mariam gardner Signed Date/T jesu: 11:18 am Transc ribed By: JACK Transc ribed Date/T jesu: 11:18 am [facility] [address] [facility], [place], [address], 01/01/2023 08:02:33 01/01/2012/31/2022 XR, lumbo sacra l spine , 2 or 3 view Lumbar spine 3 views Reason : low back pain; COMPAR DOT: None. FINDIN GS: No bone lesion s or fractu res. Multip le modera te margin al spurri ng at L2-3, L3-4 and L4-5 but the disc height s are well preser nilda. Normal alignm ent. No spondy lolysi s or spondy lolist hesis. Mild diffus e stool retent ion. IMPRES RAUDEL: 1. Mild to modera te degene rative disc endpla te spurri ng. 2. Mild stool retent ion. WSN: [id number] Orderi ng Physic erin: Paul Eric Dictat ed By: Peg roland MD, Mariam gardner Dictat ed Date/T jesu: 11:23 a Review ed By: Mariam Sullivan MD Signed By: Peg or Mariam VASQUEZ Signed Date/T jesu: 11:23 am Transc ribed By: JACK Transc ribed Date/T jesu: 11:20 am Patianna t Class: [facility] (Outpt Imaging) [address], [place], [address], 01/14/2023 15:19:17 06/05/20 23 05/14/2023 MAMMO , scree jake, bilat eral No observ ation record ed. [email or web address] [address] [place], [address], 06/05/2023 15:23:06 06/12/20 23 06/12/2023 XR, hand No observ ation record ed. [email or web address] [facility] (Medical Records) [address] [place], [address], 01/03/2024 15:44:16 07/09/19 24 07/05/2023 US, pelvi c wall No observ ation record ed. [address] (Medical Records) [address] [place], [address], 07/09/2023 10:17:40 07/11/19 24 07/10/2023 biops y thyro id, percu taneo core needl e (PROC ) No observ ation record ed. [address] (Medical Records) [address] [place], [address], 07/11/2023 19:41:10 05/26/20 24 05/19/2024 MAMMO , scree jake, bilat eral No observ ation record ed. [email or web address] [address] [place], [address], 05/26/2024 08:54:37 Result Notes None recorded. Problems Name Problem SNOMED Code Status Onset Date Resolution Date Notes Provider Name and Address Organization Details Recorded Time Fibromyalgi a 258570499 Active 2021 Michaelle Wallace PA-C [address], [place], [address], [facility] 2 14:43:17 Moderate persistent asthma 670304589 Active 2021 Michaelle Wallace PA-C [address], [place], [address], [facility] 2 15:12:12 Family history of Thyroid disorder 463301494 Active 2021 Michaelle Wallace PA-C [address], [place], [address], [facility] 2 15:13:09 Multinodula r goiter 254279038 Active 2021 Michaelle Wallace PA-C [address], [place], [address], [facility] 2 09:03:54 Palpitation s 43993617 Active 2022 Michaelle Wallace PA-C [address] [facility] [address], [place], [address], [facility] 3 11:23:20 Acute pharyngitis 795485766 Completed 202201/08/2023 Rudy Painting MA null, [facility] 3 14:32:44 Fatigue 70163354 Active 2023 MATTY Beebe [address] [facility] [address], [place], [address], [facility] 4 13:30:16 Hyperlipide blanche 01743888 Active 2023 MATTY Beebe [address], [place], [address], [facility] 4 13:30:34 Vitamin D deficiency 93321055 Active 2023 Katt Lopez, [facility] [address] [facility] [address], [place], [address], [facility] 4 15:06:17 Anemia 180739470 Active 2023 Katt Lopez, [facility] [address] [facility] [address], [place], [address], [facility] 4 15:06:23 Impaired fasting glycemia 469149626 Active 2023 Katt Lopez [address], [place], [address], [facility] 4 15:07:04 Chronic low back pain 640602699 Active 2023 Katt Lopez [address], [place], [address], [facility] 4 15:12:19 Thoracic back pain 536398233 Active 2023 Katt Lopez, [facility] [address] [place] [address] [address], [place], [address], [facility] 4 15:12:27 Menopausal flushing 874866089 Active 2023 Katt Lopez, [facility] [address] [place] [address] [address], [place], [address], [facility] 4 15:44:36 Problem Notes None recorded. Procedures Surgical History Date Name Laterality Status Provider Name and Address Organization Details Recorded Time 05/14/20 23 Most Recent Mammogram completed Benita Haq [facility] 06/05/2023 15:23:00 05/14/20 23 Mammogram both breasts completed Benita Haq [facility] 06/05/2023 15:22:53 04/20/20 Date of Last Pap Smear completed Loritrinidad Bustos [facility] 04/25/2022 09:48:29 04/17/20 Endometrial Ablation completed Stephaniebenito [place] [facility] 01/05/2022 14:16:08 06/30/19 Breast Surgery completed Stephanie Melendezgagan[place] [facility] 01/05/2022 14:16:08 06/17/19 Tubal Ligation [facility] 01/05/2022 14:16:08 Imaging Results Imaging Date Name Status LastModified by Organization Details LastModified Time 09/24/2022 electrocardiogram completed [email or web address] In-Offi ce Order Internal Use Only DO Not Attach Compendium DO Not Attach Compendium, Do Not Delete/merge, [id number] 09/24/2022 16:13:34 09/11/2022 electrocardiogram completed [email or web address] In-Offi ce Order Internal Use Only DO Not Attach Compendium DO Not Attach Compendium, Do Not Delete/merge, [id number] 09/11/2022 11:30:00 12/31/2022 XR, hip, unilateral, 2 or 3 view completed [facility] (Outpt Imaging) [address] [place], [address], 01/01/2023 08:02:33 12/31/2022 XR, lumbosacral spine, 2 or [facility] ([facility] [address] [place], [address], 01/14/2023 15:19:17 05/14/2023 MAMMO, screening, bilateral completed [email or web address] [facility] [address] [place] [address] [place], [address], 06/05/2023 15:23:06 06/12/2023 XR, hand completed [email or web address] [facility] (Medical Records) [address] [place], [address], 01/03/2024 15:44:16 07/05/2023 US, pelvic wall completed [email or web address] (Medical Records) [address] [facility] [place], [address], 07/09/2023 10:17:40 07/10/2023 biopsy thyroid, percutaneous core needle (PROC) completed [address] (Medical Records) [address] [place], [address], 07/11/2023 19:41:10 05/19/2024 MAMMO, screening, bilateral completed [facility] [address] [place] [address] [place], [address], 05/26/2024 08:54:37 Procedure Notes None recorded. Medical Equipment None Reported. Allergies No known drug allergies Medications Name Sig Start Date Stop Date Status Note LastModified by Organization Details LastModified Time cyclobenzap rine 10 mg tablet TAKE 1 TABLET ORALLY AT BEDTIME NEEDED FOR MUSCLE SPASM active Not Available Not Available No t Available ipratropium 0.5 mg-albutero l 3 mg (2.5 mg base)/3 mL nebulizatio n soln PLEASE SEE ATTACHED FOR DETAILED DIRECTION S active Not Available Not Available No t Available azithromyci n 250 mg tablet 01/05 completed Not Available Not Available Not Available metronidazo le 0.75 % (37.5 mg/5 gram) vaginal gel 01/05 completed Not Available Not Available Not Available prednisone 20 mg tablet TAKE 2 TABLETS BY MOUTH EVERY DAY DIRECTED FOR 5 DAYS 2023 active Not Available Not Available Not Avai lable terconazole 0.8 % vaginal cream 1 APPFUL VAGINALLY BEDTIME FOR 3 DAYS 01/13 completed Not Available Not Available Not Available lidocaine 5 % topical patch active Not Available Not Available Not Available albuterol sulfate HFA 90 mcg/actuati on aerosol inhaler INHALE 1 PUFF 4 TIMES DAILY FOR 30 DAYS NEEDED FOR SHORTNESS OF BREATH OR WHEEZING active Not Available Not Available No t Available fluticasone propionate 50 mcg/actuati on nasal spray,suspe nsion USE 1 SPRAY INTRANASA LLY DAILY active Not Available Not Available No t Available nitrofurant oin monohydrate /macrocryst als 100 mg capsule 01/05 completed Not Available Not Available Not Available Symbicort 160 mcg-4.5 mcg/actuati on HFA aerosol inhaler TAKE 2 PUFFS INHALED 2 TIMES A DAY active Not Available Not Available No t Available Breo Ellipta 200 mcg-25 mcg/dose powder for inhalation Inhale 2 puffs every day by inhalatio n route for 30 days. 01/13 completed Not Available Not Available Not Available EC-Naproxen 500 mg tablet,daniel yed release TAKE 1 TABLET BY MOUTH 2 TIMES A DAY NEEDED WITH FOOD 01/05 completed Not Available Not Available Not Available Vitals Date Recorded Body height Oxygen saturation Oxygen saturation in Arterial blood by Pulse oximetry Heart rate Body mass index (BMI) Body weight Body temperature Systolic blood pressure Diastolic blood pressure Provider Name and Address Organization Details Last Updated DateTime 3 165.74 cm 100 % 100 % 84 /min 25.3 kg/m2 91755.3 3 g 97.9 [degF] 107 mm[Hg] 72 mm[Hg] Pam Rodgers MA [facility] 3 10:57:22 Date Recorded Body height Body mass index (BMI) Body weight Heart rate Oxygen saturation Oxygen saturation in Arterial blood by Pulse oximetry Body temperature Systolic blood pressure Diastolic blood pressure Provider Name and Address Organization Details Last Updated DateTime 3 165.74 cm 25.1 kg/m2 30464.4 4 g 82 /min 95 % 95 % 97.9 [degF] 117 mm[Hg] 78 mm[Hg] Ruma Mcnamara MA [facility] 3 14:22:10 Date Recorded Body height Body mass index (BMI) Body weight Oxygen saturation Oxygen saturation in Arterial blood by Pulse oximetry Heart rate Body temperature Systolic blood pressure Diastolic blood pressure Provider Name and Address Organization Details Last Updated DateTime 3 165.74 cm 25.4 kg/m2 33627.9 2 g 97 % 97 % 79 /min 98 [degF] 113 mm[Hg] 79 mm[Hg] Pam Rodgers MA [facility] 3 10:07:22 Date Recorded Body height Body mass index (BMI) Body weight Heart rate Oxygen saturation Oxygen saturation in Arterial blood by Pulse oximetry Body temperature Systolic blood pressure Diastolic blood pressure Provider Name and Address Organization Details Last Updated DateTime 3 165.74 cm 24.9 kg/m2 28651.4 5 g 75 /min 98 % 98 % 98 [degF] 108 mm[Hg] 68 mm[Hg] Rudy Painting MA [facility] 3 14:32:56 Date Recorded Body height Body mass index (BMI) Body weight Heart rate Oxygen saturation Oxygen saturation in Arterial blood by Pulse oximetry Body temperature Systolic blood pressure Diastolic blood pressure Provider Name and Address Organization Details Last Updated DateTime 4 165.74 cm 25.6 kg/m2 21688.8 2 g 77 /min 98 % 98 % 97.6 [degF] 97 mm[Hg] 64 mm[Hg] Laurence hart MA [facility] 4 14:47:35 Social History Question Answer Notes LastModified by Organizat ion Details LastModified Time Tobacco Smoking Status Never [facility] 01/05/2022 14:16:05 What Is Your Level Of Alcohol Consumption? None Information not available 01/08/2023 Is Blood Transfusion Acceptable In An Emergency? Yes Information not available 01/05/2022 What Is Your Level Of Caffeine Consumption? Occasional Information not available 01/05/2022 How Much Tobacco Do You Chew? None Information not available 01/05/2022 Are You Currently Employed? Yes Information not available 01/05/2022 What Type Of Diet Are You Following? REGULAR Information not available 01/05/2022 Which Illicit Or Recreational Drugs Have You Used? N/A Information not available 01/05/2022 What Is Your Occupation? [employer] Information not available 01/14/2024 Do You Take Precautions To Prevent Distracted Driving? Yes Information not available 01/05/2022 How Often Do You Need To Have Someone Help You When You Read Instructions, Pamphlets, Or Other Written Material From Your Doctor Or Pharmacy? Never Information not available 01/05/2022 How Many Children Do You Have? 2 Information not available 01/05/2022 Do You Use Protection During Sex? No Information not available 01/05/2022 Do You Use Your Seat Belt Or Car Seat Routinely? Yes Information not available 01/05/2022 Are You Sexually Active? Yes Information not available 01/05/2022 Do You Have Smoke And Carbon Monoxide Detectors In Your Home? Yes Information not available 01/05/2022 Are You Passively Exposed To Smoke? No Information not available 01/05/2022 Do You Or Have You Ever Used Smokeless Tobacco? Never Used Smokeless Tobacco Information not available 01/05/2022 How Much Tobacco Do You Smoke? No Information not available 01/05/2022 Do You Use Any Illicit Or Recreational Drugs? No Information not available 01/08/2023 Do You Use Sunscreen Routinely? No Information not available 01/05/2022 Sex: Unknown Functional Status Question Answer Note LastModified by Organizat ion Details LastModified Time Are you able to walk? YESWOREST Information not available 01/08/2023 Are you able to care for yourself? Yes Information not available 01/05/2022 What is your exercise level? Moderate walkign everyday Information not available 01/14/2024 Mental Status None recorded. Family History Relationship Description Onset Age of this Age Resolved Age Notes LastModified by Organization Details LastModified Time Maternal Grandmother Malignant tumor of colon [email or web address] Not available 14:15:55 Maternal Grandmother Diabetes mellitus [email or web address] Not available 14:15:55 Father Diabetes mellitus [email or web address] Not available 14:15:55 Father Type 2 diabetes mellitus [email or web address] Not available 14:30:47 Mother Liver problem [email or web address] Not available 14:15:55 Mother Disorder of thyroid gland [email or web address] Not available 14:15:55 Mother [facility]lipidem [facility] Not available 14:31:11 Medical History Condition Response Asthma Y Fibromyalgia Y Gynecological History Statement/Question Response Menses Monthly N Date of Last Pap Smear 04/20/2022 Date of Last Colonoscopy Most Recent Mammogram 05/14/2023 Obstetrics History GPAL:G 0 P 0 0 0 0 Immunizations Vaccine Type Date Status Note Provider Nam e and Address Organization Details Recorded Time MMR 9 completed [facility] 01/05/2022 14:23:52 Tdap 7 completed [facility] 01/05/2022 14:23:52 COVID-19, mRNA, LNP-S, PF, 30 mcg/0.3 mL dose 1 completed [place] Apodaca [facility] 01/05/2022 14:23:52 Hep B, adult 9 completed [facility] 01/05/2022 14:23:52 COVID-19, mRNA, LNP-S, PF, 30 mcg/0.3 mL dose 1 completed [facility] 01/05/2022 14:23:52 Influenza, split virus, quadrivalent, PF 1 completed [facility] 01/05/2022 14:23:52 Influenza, split virus, quadrivalent, PF 9 completed [place] Apodaca [facility] 01/05/2022 14:23:52 COVID-19, mRNA, LNP-S, PF, 30 mcg/0.3 mL dose 1 completed MI[place]LE Apodaca, [facility] 01/05/2022 14:23:52 Hep B, adult 9 completed [place] Apodaca, [facility] 01/05/2022 14:23:52 Influenza, split virus, quadrivalent, preservative 0 completed [place] Apodaca, [facility] 01/05/2022 14:23:52 Hep B, adult 9 completed [place] Apodaca, [facility] 01/05/2022 14:23:52 Influenza, MDCK, quadrivalent, PF 2 completed [place] Alba, [facility] 11/20/2022 14:16:38 COVID-19, mRNA, LNP-S, bivalent, PF, 30 mcg/0.3 mL dose 2 completed [place] Alba, [facility] 11/20/2022 14:16:38 Past Encounters Encounter ID Performer Location Encounter Start Date Encounter Closed Date Diagnosis/Indication Diagnosis SNOMED-CT Code Diagnosis ICD10 Code [id number] Michaelle Wallace PA-C Main Office [address] [facility] [address] [place] [address] 01/05/2022 14:03:27 01/05/2022 15:06:08 Adult health examination 897496834 Z00.00 Fibromyalgia 004134385 M 79.7 Screening for malignant neoplasm of cervix 253847510 Z12.4 Screening for malignant neoplasm of breast 440926115 Z12.39 Screening for malignant neoplasm of colon 507626666 Z12.11 Hyperlipidemia 47244131 E78.5 Vitamin D deficiency 347 60232 E55.9 Thyroid nodule 348199991 E04.1 Moderate p ersistent asthma 344263084 J45.40 [id number] Michaelle Wallace PA-C Main Office [address] [place] [address] 09/11/2022 10:49:03 09/11/2022 11:28:59 Palpitations 43280258 R00.2 [id number] MATTY Beebe Main Office [address] [address] [place] [address] 11/20/2022 14:05:57 11/20/2022 14:54:55 Fever 634389772 R50.9 Acute pharyngitis 838858 003 J02.9 Moderate p ersistent asthma 392859011 J45.40 [id number] LUBNA CANO MD Main Office [address] [address] [place] [address] 12/31/2022 09:45:08 12/31/2022 10:23:46 Acute low back pain 044468952 M54.50 Pain in ri ght hip joint 4564116899 20567 M25.551 [id number] Michaelle Wallace PA-C Main Office [address] [place] [address] 01/08/2023 14:10:26 01/08/2023 15:30:12 Adult health examination 982335998 Z00.00 Moderate p ersistent asthma 214924464 J45.40 Multinodular goiter 2375 68955 E04.2 Fibromyalgia 308905100 M 79.7 Screening for malignant neoplasm of breast 980071968 Z12.39 Screening for malignant neoplasm of cervix 253623560 Z12.4 Hyperlipidemia 34409804 E78.5 Impacted c erumen in right ear 2698543270 397722 H61.21 [id number] MATTY Beebe Main Office [address] [address] 01/14/2024 14:31:36 01/14/2024 15:24:24 Multinodular goiter 694027637 E04.2 Moderate p ersistent asthma 409392418 J45.40 Fibromyalgia 510291803 M 79.7 Adult heal th examination 521004611 Z00.00 Fatigue 60170010 R53.83 Hyperlipidemia 39810195 E78.5 Vitamin D deficiency 347 35471 E55.9 Anemia 270520178 D64.9 Impaired f asting glycemia 487219074 R73.01 Screening for malignant neoplasm of colon 215202254 Z12.11 Chronic low back pain 27 7225658 M54.50 Thoracic back pain 27226 8004 M54.6 Menopausal flushing 1983 17025 N95.1 Health Concerns Section Related Observation LastModified by Organization Detai ls LastModified Time None Recorded Concern Status LastModified by Organization Details LastModified Time None Recorded Advance Directives Directive None Recorded Payers Encounter Date Sequence Insurance Name Policy Number Policy Goodrich Covered Member ID Goodrich Member ID Guarantor Name 09/11/2022 1 [facility] ([facility] [place] [place] [id number] Damarie Rodriguez [id number] Damarie Rodriguez 11/20/2022 1 [facility] ([facility] [place] [place] [id number] Damarie Rodriguez [id number] Damarie Rodriguez 12/31/2022 1 [facility] ([facility] [place] [place] [id number] Damarie Rodriguez [id number] Damarie Rodriguez 01/08/2023 1 [facility] ([facility] [place] [place] [id number] Damarie Rodriguez [id number] Damarie Rodriguez 01/14/2024 1 [facility] ([facility] [place] [place] [id number] Damarie Rodriguez [id number] Damarie Rodriguez Notes Date Note Type Note Provider Name and Address Organization Details Recorded Time 09/11/2022 text/html Pt has had sever al episodes of rapid heart beat since she had covid in Feb 2022. Episodes are more frequent now in the past couple of weeks. Pts worst episode was two nights the rapid pulse woke her from a sound sleep ,she also notes that she felt SOB,episode lasted 1/2 hour,but,she was so shaken up she could not work yesterday. Pt. denies unusual stress, anxiety. Has h/o multinodular goiter followed by endo. Last labs in December of 2021. Denies weight changes. EKG today is unremarkable. Michaelle Wallace PA-C [address] [address], [place], [address], [facility] 09/11/2022 12:12:09 11/20/2022 text/html Throat PainRepor tracey bypatient.Notes:Presen ts for sx sore throat, ear pain, sinus pain/ pressure, + coughing with phlegm- yellow/ bloody unclear if fever due to hot flashes. + chills, feels tired.using mucinex but no relief. no sick contacts MATTY Beebe [address] [address], [place], [address], [facility] 11/20/2022 15:07:31 12/31/2022 text/html Musculoskeletal PainReported bypatient.Location:rica n radiating to the buttocks; lumbar spine; right hip Quality:aching Severity:worsening; now feeling numb which started yesterday Duration:started 6 days ago Timing:constant; sudden Context:prior back problems Alleviating factors:relieved by changing position Aggravating factors:movement/posit ioning Associated Symptoms:no fever; no weak limbs; no tingling; no numbness of the legs/feet ADL (Activities of Daily Living)improve with medication Pauly Rodriguez is a 47 year old F who presented to the clinic complaining of right sided hip pain. Pain is located on the right side near the SI joint with radiating numbness and tingling around the right groin. The pain started six days ago but the numbness started yesterday 12/30. 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 Pt does have a histroy of upper back spasms. Pt has been taking Ibuprofen (800mg every 6 hours) and using her muscle relaxers which do help. LUBNA CANO MD [address] [address], [place], [address], [facility] 12/31/2022 12:37:39 01/08/2023 text/html Generic HPI TemplateReported bypatient.Notes:47 year old female for annual well visit.Moderate persistent asthma followed by pulmonary, on Breo and Symbicort, Albuterol PRN> Fibromyalgia followed by shank maker, on muscle relaxants PRN and lidocaine patch. Used to take pregabalin as well.Family h/o colo cancer , thyroid disease, Lupus in sister. NO prior colonoscopy. Due for [facility] and mammo in fall.Multinodular goiter. Pt. was referred to endo at [facility] and had biopsy done which was benign. Her TSH was also normal.BMI is 24.9. Vaccines are up to date. Sees [facility] and has mammogram yearly. NO records in chart. Michaelle Wallace PA-C [address] [facility] [address], [place], [address], [facility] 01/08/2023 15:11:26 01/14/2024 text/html Generic HPI TemplateReported bypatient.Notes:Presen ts for PE, no concerns. Has been having back pain- negative Xray, pain is everywhere, + numbness and tingling. XR showed degenerative disc disease. MATTY Beebe [address] [facility] [address], [place], [address], [facility] 01/14/2024 15:46:12 OBGyn Episode No OBEpisode recorded.
== END 2024-05-19 16:03 | disposition home or self-care (01) ==
LOC: HO.MAMMO 16:02
PROVIDERS: PCP Registered Nurse; Visit Provider Registered Nurse
DX: Z12.31 Encounter for screening mammogram for malignant neoplasm of breast (principal)
CPT/HCPCS: 77063; 77067

== ENCOUNTER 2024-07-15 15:24 | Outpatient (REF) | payer OTHER, SELFPAY ==
--- OUTSIDE RECORDS SUMMARY | 2024-07-15 17:44 | XMS_ITS | Clinical Summary ---
Author Organization [facility] ity Address [address] [place] [address] Care Team Providers Care Bath Attendant Name Role Phone Unavailable Primary Care Provider [...]
== END 2024-07-15 15:25 | disposition home or self-care (01) ==
LOC: HO.LNP 15:24
PROVIDERS: PCP Registered Nurse; Visit Provider Advanced Practice Midwife
DX: Z01.419 Encounter for gynecological examination (general) (routine) without abnormal findings (principal); R10.2 Pelvic and perineal pain; N95.0 Postmenopausal bleeding
CPT/HCPCS: 81003; 88175

== ENCOUNTER 2024-07-15 15:24 | Outpatient (REF) | payer OTHER, SELFPAY | END 2024-07-15 15:25 | disposition home or self-care (01) | LOC: HO.LNP 15:24 | PROVIDERS: Visit Provider Advanced Practice Midwife | DX: R10.2 Pelvic and perineal pain (principal); R31.9 Hematuria, unspecified | CPT/HCPCS: 87086 ==

== ENCOUNTER 2024-07-15 15:24 | Outpatient (REF) | payer OTHER, SELFPAY ==
[2024-07-16 10:27] LABS: Bacterial Vaginosis PCR NEGATIVE (Negative); Candida Group PCR NOT DETECTED (Not Detect); Candida glab krusei PCR NOT DETECTED (Not Detect); Trichomonas vaginalis PCR NOT DETECTED (Not Detect)
[2024-07-16 10:57] LABS: CT PCR NOT DETECTED (Not Detect.); NG PCR NOT DETECTED (Not Detect.)
[2024-07-24 15:10] LABS: HPV Genotype 16 Negative (Negative); HPV Genotype 18 Negative (Negative); HPV High Risk Negative (Negative)
== END 2024-07-15 15:25 | disposition home or self-care (01) ==
LOC: HO.LNP 15:24
PROVIDERS: Visit Provider Advanced Practice Midwife
DX: Z01.419 Encounter for gynecological examination (general) (routine) without abnormal findings (principal); N95.0 Postmenopausal bleeding; R10.2 Pelvic and perineal pain
CPT/HCPCS: 81515; 87491; 87591; 87626

== ENCOUNTER 2024-07-15 15:24 | Outpatient (AMB) | payer OTHER, SELFPAY ==
--- NOTE | 2024-07-15 15:25 | MHC.OFFVIS ---
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 She reports a pain on her left side every two week felt as pressure. No urinary symptoms, slight odor with urination. Currently is sexually active w/. Admits to vaginal dryness has not started her Replens moisturizer. She tries to eat healthy and stays active with exercise. Denies family history of breast, ovarian or colon cancer. Last pap smear 2021, negative. Mammogram: 2023. Colonoscopy in October. [facility] Medical History (Updated 07/15/24 @ 15:58 by Adenike Benoit CNM) PMB (postmenopausal bleeding) Pelvic pain Hx of thromboembolism Multinodular thyroid Asthma Fibromyalgia Surgical History (Updated 07/15/24 @ 15:56 by Adenike Benoit CNM) Hx of ultrasound guided needle biopsy History of endometrial ablation Hx of bilateral breast reduction surgery History of tubal ligation History of surgery H/O LEEP Family History (Updated 07/15/24 @ 15:32 by ANNABELLE Glover) Father HTN (hypertension) Diabetes mellitus Mother High cholesterol Thyroid disease Lung cancer Maternal Grandfather Cancer Maternal Grandmother Cancer Paternal Grandmother Colon cancer Maternal Aunt Breast cancer Social History Household Members: Spouse Housing: House Alcohol intake: never Patient Tobacco Use Status: Never used Tobacco Second Hand Smoke Exposure: No Current occupational status: employed 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 Sexual orientation: Straight/Heterosexual Gender identity: Female Female Reproductive History Menstrual control method: permanent sterilization Permanent Sterilization: BTL Menopause type: surgical Total pregnancies: 2 Full term: 2 Number of Living Children: 2 Date of last pap smear: 04/20/22 (neg pap and hpv) History of abnormal pap smear: Yes (12/24 hgsil 01/24 colpo nelson 1 03/26 leep nelson 1 09/26 ascus) Date of Mammogram: 05/19/24 (Birad 2) Review of Systems Const All systems reviewed & are unremarkable except as noted in HPI and below Reports as per HPI Eyes Reports no additional complaints ENT Reports no additional complaints Card Reports no additional complaints Resp Reports no additional complaints GI Reports as per HPI and Reports no additional complaints Reports as per HPI Musc Reports no additional complaints Skin/Breast Reports as per HPI Neuro Reports no additional complaints Psych Reports no additional complaints Endo Reports no additional complaints Walter/Lymph Reports no additional complaints Aller/Immun Reports no additional complaints Physical Exam Vital Signs: Last Vital Signs BP 118/70 07/15/24 15:27 BMI result Body Mass Index 24.0 Const General: cooperative, healthy appearing, no acute distress, well developed and alert Orientation/consciousness: patient oriented x3 HEENT Head: Yes normal to inspection Eyes General: appearance normal, both eyes and all related structures Neck Neck: Yes normal visual inspection Thyroid: Thyroid normal Chest Other: Bilateral breast reduction scarring Chest palpation & inspection: normal inspection of the chest and other (no puckering, dimpling, peau de orange, retraction, discharge, masses) Breast/axilla inspection: normal inspection of the breasts Breast/axilla palpation: normal palpation of the breasts Resp Effort & Inspection: normal respiratory effort GI Inspection: Yes normal to inspection Palpation (GI): Soft to palpation Rectal Exam - Female: deferred General: Yes bladder normal to palpation External Female Exam: normal external appearance and normal appearance of the urethra Speculum Exam - Vagina: normal appearance of the vagina, normal palpation, normal vaginal discharge, vagina atrophic and other (Post LEEP appearance, bled with Pap, atrophic changes) Speculum Exam - Cervix: normal appearance of the cervix and normal palpation Bimanual exam- vagina & uterus: normal bimanual exam, normal palpation, uterine size normal, bladder normal to palpation, normal palpation and non-tender Bimanual Exam- Adnexa, other: no masses Skin General skin exam: no rashes or lesions noted Rashes: no rashes Neuro General: patient oriented x3 Cognition (Neuro): normal cognition Extrem General: Yes normal to inspection Psych Attitude: cooperative Thought process: Normal thought process present Results AMB Urinalysis, Automated UA Leukoctes 0.5 Carin/uL Last Edit by ANNABELLE Glover on 07/15/24 16:15 UA Nitrite Negative Last Edit by Lavern Dueñas ANNABELLE on 07/15/24 16:15 UA Urobilinogen 0 mg/dL Last Edit by Lavern Dueñas [facility] on 07/15/24 16:15 UA Protein 0 mg/dL Last Edit by Lavern Dueñas [facility] on 07/15/24 16:15 UA pH 6.0 Last Edit by Lavern Dueñas [facility] on 07/15/24 16:15 UA Blood 2 Sae/uL Last Edit by Lavern Dueñas [facility] on 07/15/24 16:15 UA Specific [place] 1.015 Last Edit by Lavern Dueñas [facility] on 07/15/24 16:15 UA Ketone Negative Last Edit by Lavern Dueñas [facility] on 07/15/24 16:15 UA Bilirubin 0 mg/dL Last Edit by Lavern Dueñas [facility] on 07/15/24 16:15 UA Glucose 0 mg/dL Last Edit by Lavern Dueñas [facility] on 07/15/24 16:15 Assessment & Plan Assessment & Plan (1) Encounter for annual routine gynecological examination: Code(s): Z01.419 - Encounter for gynecological examination (general) (routine) without abnormal findings Category: Medical (2) Pelvic pain: Code(s): R10.2 - Pelvic and perineal pain Category: Medical Plan: Pelvic pain workup to include cervical cultures, urine dip and pelvic ultrasound. Follow up pending test results for plan of care. (3) PMB (postmenopausal bleeding): Code(s): N95.0 - Postmenopausal bleeding Category: Medical Plan: Workup for postmenopausal bleeding and to include pelvic ultrasound in EMB. Preprocedure for EMB planning reviewed including use of something to eat and drink and take 3 Advil an hour before the procedure time. Plan Discussed: Current recommendations for pap smears per ASCCP guidelines. Breast awareness, periodic self breast exams and yearly mammogram. Maintain a healthy lifestyle, well balanced diet including Calcium 1,200 mg and Vitamin D 600 IU daily, and routine exercise. Atrophic changes, use a Replens moisturizer and an additional vaginal lubricants as needed. Contact the office with any postmenopausal bleeding. Patient verbalizes understanding and agrees to the plan of care. She was given opportunity to ask questions and all questions were answered to the best of my ability. 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 Total time I personally spent on visit and management today: ?15 minutes. Time spent included review of pertinent office notes in the electronic health record; review of laboratory and imaging results; review of personal family medical history; performing physical exam; discussing diagnosis and plan of care with the patient; documenting the encounter in the EMR. This note is constructed using voice recognition software. While every effort has been made to ensure accuracy, owner errors may have been included. Orders: Orders CT NG by PCR Today N95.0 - Postmenopausal bleeding, R10.2 - Pelvic and perineal pain Pap Smear Today N95.0 - Postmenopausal bleeding, Z01.419 - Encounter for gynecological examination (general) (routine) without abnormal findings Urine Culture Today R10.2 - Pelvic and perineal pain, R31.9 - Hematuria, unspecified US pelvic and transvaginal Today N95.0 - Postmenopausal bleeding, R10.2 - Pelvic and perineal pain, Z01.419 - Encounter for gynecological examination (general) (routine) without abnormal findings Bacterial Vaginosis Panel Today N95.0 - Postmenopausal bleeding, R10.2 - Pelvic and perineal pain HPV High risk Today N95.0 - Postmenopausal bleeding, Z01.419 - Encounter for gynecological examination (general) (routine) without abnormal findings AMB Urinalysis Automated Today R10.2 - Pelvic and perineal pain Coding Level of Care Code Est Pt Level 2 (61780) Est Pt Prev Care 40-64y(44055) Diagnoses Encounter for annual routine gynecological examination Z01.419 Pelvic pain R10.2 PMB (postmenopausal bleeding) N95.0
[2024-07-15 15:27] VITALS: BP 118/70; BMI 24.0
--- OUTSIDE RECORDS SUMMARY | 2024-07-15 17:22 | XMS_ITS | Data Portability ---
Author Organization [facility], Main Office Address [address] [place] [id number] Care Team Providers Care Health Care Consultant Name Role Phone [facility] Commutator Presser [phone] [facility] [address] KATT LOPEZ Primary Care Provider Assessment No assessment recorded. Plan of Treatment Reminders Order Date Submit Date Provider Last Modified By Organization Details Last Modified Time Details Appointments None recorde d. Lab TSH, serum or plasma 2022 023 LATA [facility], [address], [address], [place], [address], 3 17:40:02 BMP, serum or plasma 2022 023 [facility], [address], [address], [place], [address], 3 17:38:39 rapid flu (A+B) 2022 023 LATA In-Office Order, Internal Use Only DO Not Attach Compendium DO Not Attach Compendium, Do Not Delete/merge, [id number] 3 15:02:36 strep group A, DNA, swab 2022 023 LATA In-Office Order, Internal Use Only DO Not Attach Compendium DO Not Attach Compendium, Do Not Delete/merge, [id number] 3 14:52:17 lipid panel, serum 2022 023 LATA [facility], [address], [address], [place], [address], 3 15:04:45 CBC w/ auto diff 2023 024 LATA [facility], [address], [address], [place], [address], 4 06:08:28 TSH + free T4, serum 2023 024 LATA [facility], [address], [address], [place], [address], 4 06:08:28 CMP, serum or plasma 2023 024 LATA [facility], [address], [address], [place], [address], 4 06:08:29 lipid panel, serum 2023 024 LATA [facility], [address], [address], [place], [address], 4 06:08:30 vitamin B12 + folate, serum or blood 2023 024 LATA [facility], [address], [address], [place], [address], 4 06:08:30 iron + TIBC + ferriti n, serum 2023 024 LATA [facility], [address], [place], [address], 4 06:08:27 HbA1c (hemogl obin A1c), blood 2023 024 LATA [facility], [address], [place], [address], 4 06:08:31 vitamin D, 25-hydr oxy, total, serum 2023 024 LATA [facility], [address], [place], [address], 4 06:08:31 Referral cardiol ogist referra l - Ongoing palpita tions since COVID in 2021. Even monitor is indicat ed. Echo and labs ordered . 2022 023 alida [facility], [address], [address], [place], [address], 3 11:59:[address]i st referra l - lumbar and right hip 2022 023 [email or web address] Not available 4 13:05:27 gynecol ogist referra l 2022 023 LATA Not available 3 15:07:32 spine center referra l - upper and lower back pain, XR 2022 showed moderat e degener ative changes . 2023 024 [facility], [address] [place], [address], 5 09:13:02 spine center referra l - upper and lower back pain, XR 2022 showed moderat e degener ative changes . 2023 [facility], [address] [facility], [place], [address], 5 09:13:03 gastroe nterolo gist referra l - Needs colon cancer screeni ng 2023 024 [facility], [address] [facility], [address], [place], [address], 4 14:50:21 Procedures cerumen removal (PROC) 2022 023 LATA In-Office Order, Internal Use Only DO Not Attach Compendium DO Not Attach Compendium, Do Not Delete/merge, [id number] 3 16:42:22 Surgeries None recorde d. Imaging electro cardiog reji 2022 023 [email or web address] In-Office Order, Internal Use Only DO Not Attach Compendium DO Not Attach Compendium, Do Not Delete/merge, [id number] 3 11:29:52 US, echocar diogram - Palpita tions post COVID 19. [email or web address] [place] [address] ([address] [employer]), [address] [facility], [place], [address], 3 16:05:04 XR, lumbosa cral spine, 2 or 3 view 2022 023 [email or web address] Not available 3 15:19:17 XR, hip, unilate ral, 2 or 3 view 2022 023 LATA Not available 3 11:22:05 MAMMO, screeni ng, bilater al 2022 023 LATA Not available 3 15:07:59 Medication Orders prednis one 20 mg tablet 2022 023 [id number], [address] [facility], [place], [address], 3 14:31:07 prednis one 20 mg tablet 2022 023 [id number], [address] [facility], [place], [address], 3 14:31:07 Patient TargetsNo targets recorded. Patient Instructions Encounter Date Encounter Id Patient Instructions Last Modified By Organization Details Last Modified Time 11/20/2022 [id number] To call or retur n for worsening or concerns [email or web address] Not available 11/20/2022 14:32:56 01/14/2024 [id number] low back pain: exercises [email or web address] Not available [...] Not available 01/14/2024 13:30:42 Reason for Referral Commutator Presser Referral for Pa lpitations Ongoing palpitations since COVID in 2021. Even monitor is indicated. Echo and labs ordered. Referring Physician: Michaelle Wallace, Internal Medicine, Encounter Date: 09/11/2022 Physical Therapist Referral for Pain in right hip joint lumbar and right hip Referring Physician: [facility], Encounter Date: 12/31/2022 Smash Fixer Referral for Sc reening for malignant neoplasm of cervix Referring Physician: Michaelle Wallace, Internal Medicine, Encounter Date: 01/08/2023 Media Assistant Referral for Screening for malignant neoplasm of colon Needs colon cancer screening Referring Physician: Katt Lopez [facility], Encounter Date: 01/14/2024 Spine Center Referral for Ch ronic low back pain upper and lower back pain, XR 2022 showed moderate degenerative changes. Referring Physician: Katt Lopez [facility], Encounter Date: 01/14/2024 Spine Center Referral for Th oracic back pain upper and lower back pain, XR 2022 showed moderate degenerative changes. Referring Physician: Katt Lopez [facility], Encounter Date: 01/14/2024 Results Created Date Observation Date Name Description Value Unit Range Abnormal Flag Note LastModifiedBy Organization Detail LastModifiedTime 09/12/19 23 09/11/2022 BASIC METAB OLIC PANEL glucose 104 mg/dL (70-99 ) high Not Available [facility] [address], [place], [address], 09/11/2022 17:38:39 09/12/19 23 09/11/2022 BASIC METAB OLIC PANEL BUN 10 mg/dL (6-20) Not Available [facility] [address] [place], [address], 09/11/2022 17:38:39 09/12/19 23 09/11/2022 BASIC METAB OLIC PANEL creatinine 0.8 mg/dL (0.5-1 .0) Not Available [facility] [address] [place], [address], 09/11/2022 17:38:39 09/12/19 23 09/11/2022 BASIC METAB OLIC PANEL sodium 138 mmol/ L (133-1 45) Not Available [facility] [address] [place], [address], 09/11/2022 17:38:39 09/12/19 23 09/11/2022 BASIC METAB OLIC PANEL potassium 4.3 mmol/ L (3.6-5 .2) Not Available [facility] [address] [place], [address], 09/11/2022 17:38:39 09/12/19 23 09/11/2022 BASIC METAB OLIC PANEL chloride 104 mmol/ L (98-10 7) Not Available [facility] [address] [place], [address], 09/11/2022 17:38:39 09/12/19 23 09/11/2022 BASIC METAB OLIC PANEL bicarbonate 27 mmol/ L (22-29 ) Not Available [facility] [address] [place], [address], 09/11/2022 17:38:39 09/12/19 23 09/11/2022 BASIC METAB OLIC PANEL anion gap 7 (4-17) Not Available [facility] [address] [place], [address], 09/11/2022 17:38:39 09/12/19 23 09/11/2022 BASIC METAB OLIC PANEL calcium 9.8 mg/dL (8.6-1 0.5) Not Available [facility] [address] [place], [address], 09/11/2022 17:38:39 09/12/19 23 09/11/2022 BASIC METAB [...] and sex. Not Available [facility] [address], [place], [address], 09/11/2022 17:38:39 09/12/19 23 09/11/2022 TSH TSH 1.93 uIU/m L (0.4-4 .2) Not Available [facility] [address], [place], [address], 09/11/2022 17:40:01 11/21/19 23 11/20/2022 rapid flu (A+B) Flu A negati ve Not Available In-Office Order Internal Use Only DO Not Attach Compendium DO Not Attach Compendium, Do Not Delete/merge, [id number] 11/20/2022 14:32:23 11/21/19 23 11/20/2022 rapid flu (A+B) Flu B negati ve Not Available In-Office Order Internal Use Only DO Not Attach Compendium DO Not Attach Compendium, Do Not Delete/merge, [id number] 11/20/2022 14:32:23 11/21/19 23 11/20/2022 strep group A, DNA, swab ID NOW Strep A 2 (rapid molecular test) negati ve Not Available In-Office Order Internal Use Only DO Not Attach Compendium DO Not Attach Compendium, Do Not Delete/merge, [id number] 11/20/2022 14:32:27 01/09/20 23 01/08/2023 cerum en remov al (PROC ) done by Bolivar lee Not Available In-Office Order Internal Use Only DO Not Attach Compendium DO Not Attach Compendium, Do Not Delete/merge, [id number] 01/08/2023 15:05:19 01/17/20 24 01/18/2024 FE+TI BC+FE R iron bind.cap.(TI BC) 303 ug/dL 250-45 0 normal Not Available [facility] ([facility]) [address] [place], [address], 01/18/2024 06:08:27 01/17/20 24 01/18/2024 FE+TI BC+FE R UIBC 234 ug/dL 131-42 5 normal Not Available [facility] ([facility]) [address] [place], [address], 01/18/2024 06:08:27 01/17/20 24 01/18/2024 FE+TI BC+FE R iron 69 ug/dL 27-159 normal Not Available [facility] ([facility]) [address] [place], [address], 01/18/2024 06:08:27 01/17/20 24 01/18/2024 FE+TI BC+FE R iron saturation 23 % 15-55 normal Not Available [facility] ([facility]) [address] [place], [address], 01/18/2024 06:08:27 01/17/20 24 01/18/2024 FE+TI BC+FE R ferritin 134 NG/mL 15-150 normal Not Available [facility] ([facility]) [address] [place], [address], 01/18/2024 06:08:27 01/17/20 24 01/17/2024 TSH+F REE T4 TSH 2.100 uIU/m L 0.450- 4.500 normal Not Available [facility] ([facility]) [address] [place], [address], 01/18/2024 06:08:28 01/17/20 24 01/17/2024 TSH+F REE T4 T4,free(dire ct) 0.83 NG/dL 0.82-1 .77 normal Not Available [facility] ([facility]) [address] [place], [address], 01/18/2024 06:08:28 01/17/20 24 01/18/2024 CBC WITH DIFFE RENTI AL/PL ATELE T WBC 7.0 x10e3 /uL 3.4-10 .8 normal Not Available [facility] ([facility]) [address] [place], [address], 01/18/2024 06:08:28 01/17/20 24 01/18/2024 CBC WITH DIFFE RENTI AL/PL ATELE T RBC 4.68 x10e6 /uL 3.77-5 .28 normal Not Available [facility] ([facility]) [address] [facility], [place], [address], 01/18/2024 06:08:28 01/17/20 24 01/18/2024 CBC WITH DIFFE RENTI AL/PL ATELE T hemoglobin 13.8 g/dL 11.1-1 5.9 normal Not Available [facility] ([facility]) [address] [place], [address], 01/18/2024 06:08:28 01/17/20 24 01/18/2024 CBC WITH DIFFE RENTI AL/PL ATELE T hematocrit 43.3 % 34.0-4 6.6 normal Not Available [facility] ([facility]) [address] [place], [address], 01/18/2024 06:08:28 01/17/20 24 01/18/2024 CBC WITH DIFFE RENTI AL/PL ATELE T MCV 93 fL 79-97 normal Not Available [facility] ([facility]) [address] [place], [address], 01/18/2024 06:08:28 01/17/20 24 01/18/2024 CBC WITH DIFFE RENTI AL/PL ATELE T MCH 29.5 pg 26.6-3 3.0 normal Not Available [facility] ([facility]) [address] [facility], [place], [address], 01/18/2024 06:08:28 01/17/20 24 01/18/2024 CBC WITH DIFFE RENTI AL/PL ATELE T MCHC 31.9 g/dL 31.5-3 5.7 normal Not Available [facility] ([facility]) [address] [facility], [place], [address], 01/18/2024 06:08:28 01/17/20 24 01/18/2024 CBC WITH DIFFE RENTI AL/PL ATELE T RDW 12.7 % 11.7-1 5.4 Not Available [facility] ([facility]) [address] [facility], [place], [address], 01/18/2024 06:08:28 01/17/20 24 01/18/2024 CBC WITH DIFFE RENTI AL/PL ATELE T platelets 268 x10e3 /uL 150-45 0 normal Not Available [facility] ([facility]) [address] [facility], [place], [address], 01/18/2024 06:08:28 01/17/20 24 01/18/2024 CBC WITH DIFFE RENTI AL/PL ATELE T neutrophils 51 % not estab. normal Not Available [facility] ([facility]) [address] [facility], [place], [address], 01/18/2024 06:08:28 01/17/20 24 01/18/2024 CBC WITH DIFFE RENTI AL/PL ATELE T lymphs 38 % not estab. normal Not Available [facility] ([facility]) [address] [facility], [place], [address], 01/18/2024 06:08:28 01/17/20 24 01/18/2024 CBC WITH DIFFE RENTI AL/PL ATELE T monocytes 7 % not estab. normal Not Available [facility] ([facility]) [address] [facility], [place], [address], 01/18/2024 06:08:28 01/17/20 24 01/18/2024 CBC WITH DIFFE RENTI AL/PL ATELE T eos 3 % not estab. normal Not Available [facility] ([facility]) [address] [facility], [place], [address], 01/18/2024 06:08:28 01/17/20 24 01/18/2024 CBC WITH DIFFE RENTI AL/PL ATELE T basos 1 % not estab. normal Not Available [facility] ([facility]) [address] [facility], [place], [address], 01/18/2024 06:08:28 01/17/20 24 01/18/2024 CBC WITH DIFFE RENTI AL/PL ATELE T immature cells ECONOMIC MANAGER Not Available [facility] ([facility]) [address] [place], [address], 01/18/2024 06:08:28 01/17/20 24 01/18/2024 CBC WITH DIFFE RENTI AL/PL ATELE T neutrophils (absolute) 3.6 x10e3 /uL 1.4-7. 0 normal Not Available [facility] ([facility]) [address] [place], [address], 01/18/2024 06:08:28 01/17/20 24 01/18/2024 CBC WITH DIFFE RENTI AL/PL ATELE T lymphs (absolute) 2.7 x10e3 /uL 0.7-3. 1 normal Not Available [facility] ([facility]) [address] [place], [address], 01/18/2024 06:08:28 01/17/20 24 01/18/2024 CBC WITH DIFFE RENTI AL/PL ATELE T monocytes(ab solute) 0.5 x10e3 /uL 0.1-0. 9 normal Not Available [facility] ([facility]) [address] [facility], [place], [address], 01/18/2024 06:08:28 01/17/20 24 01/18/2024 CBC WITH DIFFE RENTI AL/PL ATELE T eos (absolute) 0.2 x10e3 /uL 0.0-0. 4 normal Not Available [facility] ([facility]) [address] [facility], [place], [address], 01/18/2024 06:08:28 01/17/20 24 01/18/2024 CBC WITH DIFFE RENTI AL/PL ATELE T baso (absolute) 0.1 x10e3 /uL 0.0-0. 2 normal Not Available [facility] ([facility]) [address] [facility], [place], [address], 01/18/2024 06:08:28 01/17/20 24 01/18/2024 CBC WITH DIFFE RENTI AL/PL ATELE T immature granulocytes 0 % not estab. Not Available [facility] ([facility]) [address] [facility], [place], [address], 01/18/2024 06:08:28 01/17/20 24 01/18/2024 CBC WITH DIFFE RENTI AL/PL ATELE T immature grans (abs) 0.0 x10e3 /uL 0.0-0. 1 Not Available [facility] ([facility]) [address] [facility], [place], [address], 01/18/2024 06:08:28 01/17/20 24 01/18/2024 CBC WITH DIFFE RENTI AL/PL ATELE T NRBC ECONOMIC MANAGER Not Available [facility] ([facility]) [address] [facility], [place], [address], 01/18/2024 06:08:28 01/17/20 24 01/18/2024 CBC WITH DIFFE RENTI AL/PL ATELE T hematology comments: ECONOMIC MANAGER Not Available [facility] ([facility]) [address] [place], [address], 01/18/2024 06:08:28 01/17/20 24 01/17/2024 COMP. METAB OLIC PANEL (14) glucose 94 mg/dL 70-99 normal Not Available [facility] ([facility]) [address] [place], [address], 01/18/2024 06:08:29 01/17/20 24 01/17/2024 COMP. METAB OLIC PANEL (14) BUN 12 mg/dL 6-24 normal Not Available [facility] ([facility]) [address] [place], [address], 01/18/2024 06:08:29 01/17/20 24 01/17/2024 COMP. METAB OLIC PANEL (14) creatinine 0.89 mg/dL 0.57-1 .00 normal Not Available [facility] ([facility]) [address] [place], [address], 01/18/2024 06:08:29 01/17/20 24 01/17/2024 COMP. METAB OLIC PANEL (14) eGFR 79 mL/mi n/1.7 3 >59 normal Not Available [facility] ([facility]) [address] [place], [address], 01/18/2024 06:08:29 01/17/20 24 01/17/2024 COMP. METAB OLIC PANEL (14) BUN/creatini ne ratio 13 9-23 normal Not Available [facility] ([facility]) [address] [place], [address], 01/18/2024 06:08:29 01/17/20 24 01/17/2024 COMP. METAB OLIC PANEL (14) sodium 142 mmol/ L 134-14 4 normal Not Available [facility] ([facility]) [address] [place], [address], 01/18/2024 06:08:29 01/17/20 24 01/17/2024 COMP. METAB OLIC PANEL (14) potassium 4.2 mmol/ L 3.5-5. 2 normal Not Available [facility] ([facility]) [address] [place], [address], 01/18/2024 06:08:29 01/17/20 24 01/17/2024 COMP. METAB OLIC PANEL (14) chloride 107 mmol/ L 96-106 above high normal Not Available [facility] ([facility]) [address] [place], [address], 01/18/2024 06:08:29 01/17/20 24 01/17/2024 COMP. METAB OLIC PANEL (14) carbon dioxide, total 21 mmol/ L 20-29 normal Not Available [facility] ([facility]) [address] [place], [address], 01/18/2024 06:08:29 01/17/20 24 01/17/2024 COMP. METAB OLIC PANEL (14) calcium 9.3 mg/dL 8.7-10 .2 normal Not Available [facility] ([facility]) [address] [place], [address], 01/18/2024 06:08:29 01/17/20 24 01/17/2024 COMP. METAB OLIC PANEL (14) protein, total 7.7 g/dL 6.0-8. 5 normal Not Available [facility] ([facility]) [address] [place], [address], 01/18/2024 06:08:29 01/17/20 24 01/17/2024 COMP. METAB OLIC PANEL (14) albumin 4.4 g/dL 3.9-4. 9 normal Not Available [facility] ([facility]) [address] [place], [address], 01/18/2024 06:08:29 01/17/20 24 01/17/2024 COMP. METAB OLIC PANEL (14) globulin, total 3.3 g/dL 1.5-4. 5 Not Available [facility] ([facility]) [address] [place], [address], 01/18/2024 06:08:29 01/17/20 24 01/17/2024 COMP. METAB OLIC PANEL (14) bilirubin, total 0.3 mg/dL 0.0-1. 2 normal Not Available [facility] ([facility]) [address] [place], [address], 01/18/2024 06:08:29 01/17/20 24 01/17/2024 COMP. METAB OLIC PANEL (14) alkaline phosphatase 117 IU/L 44-121 normal Not Available [facility]) [address] [place], [address], 01/18/2024 06:08:29 01/17/20 24 01/17/2024 COMP. METAB OLIC PANEL (14) AST (SGOT) 23 IU/L 0-40 normal Not Available [facility] ([facility]) [address] [place], [address], 01/18/2024 06:08:29 01/17/20 24 01/17/2024 COMP. METAB OLIC PANEL (14) ALT (SGPT) 32 IU/L 0-32 normal Not Available [facility] ([facility]) [address] [place], [address], 01/18/2024 06:08:29 01/17/20 24 01/17/2024 LIPID PANEL cholesterol, total 186 mg/dL 100-19 9 normal Not Available [facility] ([facility]) [address] [facility], [place], [address], 01/18/2024 06:08:30 01/17/20 24 01/17/2024 LIPID PANEL triglyceride s 132 mg/dL 0-149 normal Not Available [facility] ([facility]) [address] [place], [address], 01/18/2024 06:08:30 01/17/20 24 01/17/2024 LIPID PANEL HDL cholesterol 48 mg/dL >39 normal Not Available [facility] ([facility]) [address] [place], [address], 01/18/2024 06:08:30 01/17/20 24 01/17/2024 LIPID PANEL VLDL cholesterol elliott 24 mg/dL 5-40 Not Available [facility] ([facility]) [address] [place], [address], 01/18/2024 06:08:30 01/17/20 24 01/17/2024 LIPID PANEL LDL chol calc ([facility]) 114 mg/dL 0-99 above high normal Not Available [facility] ([facility]) [address] [place], [address], 01/18/2024 06:08:30 01/17/20 24 01/17/2024 LIPID PANEL LDL calc comment: ECONOMIC MANAGER Not Available [facility] ([facility]) [address] [facility], [place], [address], 01/18/2024 06:08:30 01/17/20 24 01/18/2024 VITAM IN B12 AND FOLAT E vitamin B12 800 pg/mL 232-12 45 normal Not Available [facility] ([facility]) [address] [place], [address], 01/18/2024 06:08:30 01/17/20 24 01/18/2024 VITAM IN B12 AND FOLAT E folate (folic acid), serum 15.0 NG/mL >3.0 normal A serum folat e zachary ntrat ion of less than 3.1 ng/mL is consi dered to repre sent clini elliott defic iency . Not Available [facility] ([facility]) [address] [place], [address], 01/18/2024 06:08:30 01/17/20 24 01/18/2024 HEMOG LOBIN A1C hemoglobin A1C 5.6 % 4.8-5. 6 normal Predi abete s: 5.7 - 6.4 Diabe shan: >6.4 Glyce manuel contr ol for adult s with diabe shan: <7.0 Not Available [facility] ([facility]) [address] [facility], [place], [address], 01/18/2024 06:08:31 01/17/20 24 01/18/2024 VITAM IN [...] um and D. Uzma arzate [place]: [facility] Press . 2. Delilah noel MF, Jonah myrick [place], Tawanna off-F errar i PERRY, et al. Evalu ation , treat ment, and preve ntion of vitam in D defic iency : an Endoc rine Socie ty clini elliott pract ice guide line. JCEM. 2010; 96(7) :1911 -30. Not Available [facility] ([facility]) [address] [facility], [place], [address], 01/18/2024 06:08:31 09/12/19 23 09/24/2022 elect barb abbott am No observ ation record ed. [email or web address] In-Office Order Internal Use Only DO Not Attach Compendium DO Not Attach Compendium, Do Not Delete/merge, [id number] 09/24/2022 16:13:34 09/12/19 elect barb diogr am No observ ation record ed. [email or web address] In-Office Order Internal Use Only DO Not Attach Compendium DO Not Attach Compendium, Do Not Delete/merge, [id number] 09/11/2022 11:30:00 01/01/20 23 12/31/2022 XR, hip, unila teral , 2 or 3 view Hip Comp 2 Views Right Reason : pain in right hip; COMPAR DOT: None. FINDIN GS: No fractu re or disloc ation. Well preser nilda joint space. Normal femora l head contou r withou t eviden ce of avascu lar necros is. Normal soft tissue s. IMPRES RAUDEL: Normal . WSN: [id number] Orderi ng Physic erin: Paul Eric Dictat ed By: Mariam Sullivan MD Dictat ed Date/T jesu: 11:18 a Review ed By: Mariam Sullivan MD Signed By: Mariam Sullivan MD Signed Date/T jesu: 11:18 am Transc ribed By: JACK Transc ribed Date/T jesu: 11:18 am Patien t Class: Outpat ient [facility] (Outpt Imaging) [address] [place], [address], 01/01/2023 08:02:33 01/01/2012/31/2022 XR, lumbo sacra l [...] ng. 2. Mild stool retent ion. WSN: [id number] Orderi ng Physic erin: Paul Eric ie Dictat ed By: Peg roland MD, Mariam gardner Dictat ed Date/T jesu: 11:23 a Review ed By: Peg roland MD, Mariam gardner Signed By: Peg roland MD, Mariam gardner Signed Date/T jesu: 11:23 am Transc ribed By: JACK Transc ribed Date/T jesu: 11:20 am Patien t Class: Outpat ient [facility] (Outpt Imaging) [address], [place], [address], 01/14/2023 15:19:17 06/05/20 23 05/14/2023 MAMMO , scree jake, bilat eral No observ ation record ed. [facility] [address] [place], [address], 06/05/2023 15:23:06 06/12/20 23 06/12/2023 XR, hand No observ ation record ed. [email or web address] [facility] (Medical Records) [address] [place], [address], 01/03/2024 15:44:16 07/09/19 24 07/05/2023 US, young palacios No observ ation record ed. [address] (Medical Records) [address] [place], [address], 07/09/2023 10:17:40 07/11/19 24 07/10/2023 biops y thyro id, percu taneo us core needl e (PROC ) No observ ation record ed. [address] (Medical Records) [address] [place], [address], 07/11/2023 19:41:10 05/26/20 24 05/19/2024 MAMMO , scree jake, bilat eral No observ ation record ed. [facility] [address] [place], [address], 05/26/2024 08:54:37 Result Notes None recorded. Problems Name Problem SNOMED Code Status Onset Date Resolution Date Notes Provider Name and Address Organization Details Recorded Time Fibromyalgi a 874198413 Active 2021 Michaelle Wallace PA-C [address], [place], [address], [facility] 2 14:43:17 Moderate persistent asthma 743433144 Active 2021 Michaelle Wallace PA-C [address], [place], [address], [facility] 2 15:12:12 Family history of Thyroid disorder 875020402 Active 2021 Michaelle Wallace PA-C [address], [place], [address], [facility] 2 15:13:09 Multinodula r goiter 369228996 Active 2021 Michaelle Wallace PA-C [address], [place], [address], [facility] 2 09:03:54 Palpitation s 24480193 Active 2022 Michaelle Wallace PA-C [address], [place], [address], [facility] 3 11:23:20 Acute pharyngitis 461481665 Completed 202201/08/2023 Rud[facility] 3 14:32:44 Fatigue 41949714 Active 2023 MATTY Beebe [address] [facility] [address], [place], [address], [facility] 4 13:30:16 Hyperlipide blanche 79142856 Active 2023 MATTY Beebe [facility] [address], [place], [address], [facility] 4 13:30:34 Vitamin D deficiency 51774220 Active 2023 MATTY Beebe [address] [place] [address], [place], [address], [facility] 4 15:06:17 Anemia 578188950 Active 2023 [facility] [address] [place] [address], [place], [address], [facility] 4 15:06:23 Impaired fasting glycemia 832525925 Active 2023 MATTY Beebe [address] [place] [address], [place], [address], [facility] 4 15:07:04 Chronic low back pain 994535334 Active 2023 MATTY Beebe [address] [place] [address], [place], [address], [facility] 4 15:12:19 Thoracic back pain 785948468 Active 2023 [facility] [address] [address], [place], [address], [facility] 4 15:12:27 Menopausal flushing 784652841 Active 2023 MATTY Beebe [address] [place] [address], [place], [address], [facility] 4 15:44:36 Problem Notes None recorded. Procedures Surgical History Date Name Laterality Status Provider Name and Address Organization Details Recorded Time 05/14/20 Most Recent Mammogram completed Benita Haq [facility] 06/05/2023 15:23:00 05/14/20 23 Mammogram both breasts completed Benita Haq [facility] 06/05/2023 15:22:53 04/20/20 22 Date of Last Pap Smear completed Lori Akash [facility] 04/25/2022 09:48:29 04/17/20 Endometrial Ablation completed Stephanie Huynh MA [facility] 01/05/2022 14:16:08 06/30/19 Breast Surgery completed Stephanie Huynh MA [facility] 01/05/2022 14:16:08 06/17/19 Tubal Ligation completed Stephanie Huynh MA [facility] 01/05/2022 14:16:08 Imaging Results Imaging Date Name Status LastModified by Organization Details LastModified Time 09/24/2022 electrocardiogram completed [email or web address] In-Offi ce Order Internal Use Only DO Not Attach Compendium DO Not Attach Compendium, Do Not Delete/merge, [id number] 09/24/2022 16:13:34 09/11/2022 electrocardiogram completed [email or web address] In-Offi ce Order Internal Use Only DO Not Attach Compendium DO Not Attach Compendium, Do Not Delete/merge, [id number] 09/11/2022 11:30:00 12/31/2022 XR, hip, unilateral, 2 or 3 view completed [facility] (Outpt [facility]) [address] [place], [address], 01/01/2023 08:02:33 12/31/2022 XR, lumbosacral spine, 2 or 3 view completed yeni [facility] (Outpt [facility]) [address] [place], [address], 01/14/2023 15:19:17 05/14/2023 MAMMO, screening, bilateral completed [email or web address] [facility] [address] [place] [address] [place], [address], 06/05/2023 15:23:06 06/12/2023 XR, hand completed [email or web address] [facility] (Medical Records) [address] [place], [address], 01/03/2024 15:44:16 07/05/2023 US, pelvic wall completed [address] (Medical Records) [address] [place], [address], 07/09/2023 10:17:40 07/10/2023 biopsy thyroid, percutaneous core needle (PROC) completed [address] (Medical Records) [address] [place], [address], 07/11/2023 19:41:10 05/19/2024 MAMMO, screening, bilateral completed [facility] [address] [place] [address] [place], [address], 05/26/2024 08:54:37 Procedure Notes None recorded. Medical [...] % 100 % 84 /min 25.3 kg/m2 92811.3 3 g 97.9 [degF] 107 mm[Hg] 72 mm[Hg] Pam Rodgers MA [facility] [place] 3 10:57:22 Date Recorded Body height Body mass index (BMI) Body weight Heart rate Oxygen saturation Oxygen saturation in Arterial blood by Pulse oximetry Body temperature Systolic blood pressure Diastolic blood pressure Provider Name and Address Organization Details Last Updated DateTime 3 165.74 cm 25.1 kg/m2 96578.4 4 g 82 /min 95 % 95 % 97.9 [degF] 117 mm[Hg] 78 mm[Hg] Ruma Mcnamara MA [facility] [place] 3 14:22:10 Date Recorded Body height Body mass index (BMI) Body weight Oxygen saturation Oxygen saturation in Arterial blood by Pulse oximetry Heart rate Body temperature Systolic blood pressure Diastolic blood pressure Provider Name and Address Organization Details Last Updated DateTime 3 165.74 cm 25.4 kg/m2 25231.9 2 g 97 % 97 % 79 /min 98 [degF] 113 mm[Hg] 79 mm[Hg] Pam Rodgers MA [facility] 3 10:07:22 Date Recorded Body height Body mass index (BMI) Body weight Heart rate Oxygen saturation Oxygen saturation in Arterial blood by Pulse oximetry Body temperature Systolic blood pressure Diastolic blood pressure Provider Name and Address Organization Details Last Updated DateTime 3 165.74 cm 24.9 kg/m2 52198.4 5 g 75 /min 98 % 98 % 98 [degF] 108 mm[Hg] 68 mm[Hg] Rudy Painting MA [facility] 3 14:32:56 Date Recorded Body height Body mass index (BMI) Body weight Heart rate Oxygen saturation Oxygen saturation in Arterial blood by Pulse oximetry Body temperature Systolic blood pressure Diastolic blood pressure Provider Name and Address Organization Details Last Updated DateTime 4 165.74 cm 25.6 kg/m2 37840.8 2 g 77 /min 98 % 98 % 97.6 [degF] 97 mm[Hg] 64 mm[Hg] Laurence hart MA [facility] 4 14:47:35 Social History Question Answer Notes LastModified by Organizat ion Details LastModified Time Tobacco Smoking Status Never Smoker [facility] 01/05/2022 14:16:05 What Is Your Level Of [...] not available 01/05/2022 What Is Your Occupation? [employer] Information not available 01/14/2024 Do You Take [...] [email or web address] Not available 14:15:55 Father Diabetes mellitus [email or web address] Not available 14:15:55 Father Type 2 diabetes mellitus [email or web address] Not available 14:30:47 Mother Liver problem [email or web address] Not available 14:15:55 Mother Disorder of thyroid gland [email or web address] Not available 14:15:55 Mother Hyperlipidem ia [email or web address] Not available 14:31:11 Medical History Condition Response Fibromyalgia Y Asthma Y Gynecological History Statement/Question Response Menses Monthly N Date of Last Pap Smear 04/20/2022 Date of Last Colonoscopy Most Recent Mammogram 05/14/2023 Obstetrics History GPAL:G 0 P 0 0 0 0 Immunizations Vaccine Type Date Status Note Provider Nam e and Address Organization Details Recorded Time MMR 9 completed MIREILLE Apodaca [facility] 01/05/2022 14:23:52 Tdap 7 completed MIREILLE Apodaca [facility] 01/05/2022 14:23:52 COVID-19, mRNA, LNP-S, PF, 30 mcg/0.3 mL dose 1 completed MIREILLE Apodaca [facility] 01/05/2022 14:23:52 Hep B, adult 9 completed MIREILLE Apodaca [facility] 01/05/2022 14:23:52 COVID-19, mRNA, LNP-S, PF, 30 mcg/0.3 mL dose 1 completed MIREILLE Apodaca [facility] 01/05/2022 14:23:52 Influenza, split virus, quadrivalent, PF 1 completed MIREILLE Apodaca [facility] 01/05/2022 14:23:52 Influenza, split virus, quadrivalent, PF 9 completed [facility] 01/05/2022 14:23:52 COVID-19, mRNA, LNP-S, PF, 30 mcg/0.3 mL dose 1 completed [facility] 01/05/2022 14:23:52 Hep B, adult 9 completed MIREILLE Apodaca, [facility] 01/05/2022 14:23:52 Influenza, split virus, quadrivalent, preservative 0 completed [facility] 01/05/2022 14:23:52 Hep B, adult 9 completed [facility] 01/05/2022 14:23:52 Influenza, MDCK, quadrivalent, PF 2 completed [facility] 11/20/2022 14:16:38 COVID-19, mRNA, LNP-S, bivalent, PF, 30 mcg/0.3 mL dose 2 completed [facility] 11/20/2022 14:16:38 Past Encounters Encounter ID Performer Location Encounter Start Date Encounter Closed Date Diagnosis/Indication Diagnosis SNOMED-CT Code Diagnosis ICD10 Code Diagnosis Note [id number] Michaelle Wallace PA-C Main Office [address] [facility] [address] [place] [address] 01/05/2022 14:03:27 01/05/2022 15:06:08 Adult health examination 336897927 Z00.00 recommend second COVID booster Fibromyalgia 189053579 M 79.7 f/u with rheumatolo gist Screening for malignant neoplasm of cervix 070119642 Z12.4 Screening for malignant neoplasm of breast 908052947 Z12.39 Screening for malignant neoplasm of colon 415088607 Z12.11 Hyperlipidemia 80864651 E78.5 Vitamin D deficiency 347 10776 E55.9 Thyroid nodule 317659870 E04.1 Single R. lobe nodule. Schedule ultrasound and labs. Moderate p ersistent asthma 765005228 J45.40 f/u with pulmonary. [id number] Michaelle Wallace PA-C Main Office [address] [facility] [address] [place] [address] 09/11/2022 10:49:03 09/11/2022 11:28:59 Palpitations 76044869 R00.2 check thyroid labs and bmp. Schedule echo cardiogram and refer to cardiology for an event monitor. PT. was advised to avoid excessive physical activity or caffeine. [id number] MATTY Beebe Main Office [address] [facility] [address] [place] [address] 11/20/2022 14:05:57 11/20/2022 14:54:55 Fever 052562088 R50.9 flu negative A/B, likely viral illness, hydration, rest mucinex as needed, may start prednisone burst. Acute pharyngitis 830124 003 J02.9 strep negative. Moderate p ersistent asthma 182278944 J45.40 using her inhalers and neb but coughing persists. start prednisone burst, hydration, rest, continue mucinex as needed. Continue inhalers/ nebs as needed. If sx persist or worsen please call/ return. [id number] LUBNA CANO MD Main Office [address] [address] 12/31/2022 09:45:08 12/31/2022 10:23:46 Acute low back pain 253760451 M54.50 - pain located near the right sided SI joint radiating to the right groin- acute pain which is not improving- pt provided with high dose steroid treatment for 5 days to help with inflammati on- can c/w advil as needed -> pt advised to take with food- can c/w flexeril 10mg as needed -> pt advised to take before bed and cannot drive or operate heavy machinery- x-ray of the lumbar spine ordered- once pain is under good control pt to undergo physical therapy- RTC if no improvemen t -> to consider MRI and medical policy specialist Pain in ri ght hip joint 7954895686 96665 M25.551 - pt believes pain is coming from the hip but after history and exam believe is more likely coming from lumbar spine- for patient re-assuran ce ordered X-ray of the right hip for further evaluation [id number] Michaelle Wallace PA-C Main Office [address] [facility] [address] [place] [address] 01/08/2023 14:10:26 01/08/2023 15:30:12 Adult health examination 098198271 Z00.00 vaccines are up to date. Moderate p ersistent asthma 363558473 J45.40 f/u with pulmonary. Multinodular goiter 2375 77835 E04.2 f/u with endo yearly. Fibromyalgia 484399972 M 77.7 f/u with rheumatolo gist Screening for malignant neoplasm of breast 355222995 Z12.39 Screening for malignant neoplasm of cervix 973758369 Z12.4 Hyperlipidemia 03977719 E78.5 Impacted c erumen in right ear 5048955321 211644 H61.21 [id number] MATTY Beebe Main Office [address] [facility] [address] [place] [address] 01/14/2024 14:31:36 01/14/2024 15:24:24 Multinodular goiter 093796046 E04.2 sees endocrinol ogy yearly Moderate p ersistent asthma 633895321 J45.40 Fibromyalgia 811858435 M 77.7 Adult heal th examination 638375256 Z00.00 Mammo and pap UTD, april and may, needs colonoscop y will refer. pulm May 13. Fatigue 00541326 R53.83 Hyperlipidemia 78633938 E78.5 Vitamin D deficiency 347 13751 E55.9 Anemia 472817299 D64.9 Impaired f asting glycemia 497007067 R73.01 Screening for malignant neoplasm of colon 150922299 Z12.11 due for screening will refer. Chronic low back pain 27 2710288 M54.50 will refer to [facility] for further eval. Thoracic back pain 90006 8004 M54.6 Menopausal flushing 1983 85446 N95.1 does not want hormone therapy, has tried OTC remedies. Health Concerns Section Related Observation LastModified by Organization Detai ls LastModified Time None Recorded Concern Status LastModified by Organization Details LastModified Time None Recorded Advance Directives Directive None Recorded Payers Encounter Date Sequence Insurance Name Policy Number Policy Goodrich Covered Member ID Goodrich Member ID Guarantor Name 09/11/2022 1 [facility] [place] [id number] Damarie Rodriguez [id number] Damarie Rodriguez 11/20/2022 1 [facility] [place] [id number] Damarie Rodriguez [id number] Damarie Rodriguez 12/31/2022 1 [facility] [place] [id number] Damarie Rodriguez [id number] Damarie Rodriguez 01/08/2023 1 [facility] [place] [id number] Damarie Rodriguez [id number] Damarie Rodriguez 01/14/2024 1 [facility] [place] [id number] Damarie Rodriguez [id number] Damarie Rodriguez Notes Date Note Type Note [...] EKG today is unremarkable. Michaelle Wallace PA-C [address] [address], [place], [address], [facility] 09/11/2022 12:12:09 11/20/2022 text/html Throat PainRepor tracey bypatient.Notes:Presen ts for sx sore throat, ear pain, sinus pain/ pressure, + coughing with phlegm- yellow/ bloody unclear if fever due to hot flashes. + chills, feels tired.using mucinex but no relief. no sick contacts MATYT Beebe [address] [address], [place], [address], [facility] 11/20/2022 15:07:31 12/31/2022 text/html Musculoskeletal PainReported bypatient.Location:rica [...] started yesterday 12/30. 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 Pt does have a histroy of upper back spasms. Pt has been taking Ibuprofen (800mg every 6 hours) and using her muscle relaxers which do help. 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 Used to take pregabalin as well.Family h/o colo cancer , thyroid disease, Lupus in sister. NO prior colonoscopy. Due for [facility] and mammo in fall.Multinodular goiter. Pt. was referred to endo at [facility] and had biopsy done which was benign. Her TSH was also normal.BMI is 24.9. Vaccines are up to date. Sees [facility] and has mammogram yearly. NO records in chart. Michaelle Wallace PA-C [address] [address], [place], [address], [facility] 01/08/2023 15:11:26 01/14/2024 text/html Generic HPI TemplateReported bypatient.Notes:Presen ts for PE, no concerns. Has been having back pain- negative Xray, pain is everywhere, + numbness and tingling. XR showed degenerative disc disease. Katt oLpez, [facility] [address] [facility] [address], [place], [address], [facility] 01/14/2024 15:46:12 OBGyn Episode No OBEpisode recorded.
--- OUTSIDE RECORDS SUMMARY | 2024-07-15 17:22 | XMS_ITS | Clinical Summary ---
Author Organization [facility] ity Address [address] [place] [address] Care Team Providers Care Detective Captain Name Role Phone Unavailable Primary Care Provider Unavailabl e Social History Tobacco Use Types Packs/Day Years Used Date Smoking Tobacco: Never Assessed Sex and Gender Information Value Date Recorded Sex Assigned at Not on file Gender Identity Not on file Sexual Orientation Not on file Plan of Treatment Health Maintenance Due Date Last Done Comments Breast Cancer Screening 1973 DTaP,Tdap,and Td Vaccines (1 - Tdap) 1992 Hepatitis B Vaccines (1 of 3 - 19+ 3-dose series) 1992 Cervical Cancer Screening: P ap Smear 1994 Colorectal Cancer Screening: Colonoscopy 05/19/2022 Depression Screening 05/19/2022 HIV Screening 05/19/2022 Hepatitis C Screening 05/19/2022 Social Influencers of Health Screening 05/19/2022 Zoster Vaccines (1 of 2) 10/22/2023 COVID-19 Vaccine (1 - 2023-2 5 season) 2024 Influenza Vaccine (#1) 2024 HIB Vaccines Aged Out No longer eligi ble based on patient's age to complete this topic HPV Vaccines Aged Out No longer eligi ble based on patient's age to complete this topic Hepatitis A Vaccines Aged Out No long er eligible based on patient's age to complete this topic IPV Vaccines Aged Out No longer eligi ble based on patient's age to complete this topic MMR Vaccines Aged Out No longer eligi ble based on patient's age to complete this topic Meningococcal ACWY Vaccine Aged Out N o longer eligible based on patient's age to complete this topic Pneumococcal Vaccine: Pediat rics (0 to 5 Years) and At-Risk Patients (6 to 64 Years) Aged Out No longer eligible b ased on patient's age to complete this topic RSV Immunization Patients Un traci 20 months Aged Out No longer eligible b ased on patient's age to complete this topic Varicella Vaccines Aged Out No longer eligible based on patient's age to complete this topic
== END 2024-07-15 16:59 ==
LOC: HO.HWS 15:24
PROVIDERS: PCP Registered Nurse; Visit Provider Advanced Practice Midwife
DX: R10.2 Pelvic and perineal pain (principal)

== ENCOUNTER 2024-07-15 15:57 | Outpatient (REF) | payer OTHER, SELFPAY | END 2024-07-15 15:58 | disposition home or self-care (01) | LOC: HO.LAB 15:57 | PROVIDERS: Visit Provider Advanced Practice Midwife | DX: Z13.89 Encounter for screening for other disorder (principal) ==

== ENCOUNTER 2024-07-29 16:02 | Outpatient (REF) | payer OTHER, SELFPAY ==
--- NOTE | ~2024-07-29 | US_ITS ---
EXAMINATION: US PELVIS TRANSABDOMINAL AND TRANSVAGINAL HISTORY: Z01.419 - Encounter for gynecological examination (general) (routine) COMPARISON: Comparison is made with the prior examination dated 07/05/2023. TECHNIQUE: Transabdominal and endovaginal real-time 2D michelle-scale ultrasound was performed. Color Doppler was also performed. FINDINGS: Uterus: The uterus is normal in size, measuring 5.4 x 2.7 x 3.0 cm. Again seen are innumerable calcifications throughout the myometrium which likely represent fibroids. No discrete fibroids are identified, however. Endometrium: The endometrial stripe measures 2 mm in thickness. There is trace fluid in the endometrial cavity. Right ovary: The right ovary measures 2.2 x 1.5 x 1.3 cm. The right ovary is normal in size and echotexture. Left ovary: The left ovary measures 2.1 x 1.4 x 1.1 cm. The left ovary is normal in size and echotexture. Color Doppler analysis of the bilateral ovarian arteries and veins are normal. Pelvic fluid: none. US/US pelvic and transvaginal IMPRESSION: Innumerable myometrial calcifications likely representing small fibroids. The ovaries are unremarkable. Electronically signed by: Jose Swain MD 07/30/2024 07:12 AM [facility]
--- OUTSIDE RECORDS SUMMARY | 2024-07-29 16:35 | XMS_ITS | Clinical Summary ---
Author Organization [facility] ity Address [address] [place] [address] Care Team Providers Care Harnessmaker Name Role Phone Unavailable Primary Care Provider Unavailabl e Social History Tobacco Use Types Packs/Day Years Used Date Smoking Tobacco: Never Assessed Comments Unknown Sex and Gender Information Value Date Recorded Sex Assigned at Not on file Legal Sex Female 6:20 PM EST Gender Identity Not on file Sexual Orientation [...] Vaccines (1 of 2) 10/22/2023 COVID-19 Vaccine ( - 2023-2 5 season) 2024 Influenza Vaccine [...]
--- OUTSIDE RECORDS SUMMARY | 2024-07-29 16:35 | XMS_ITS | Data Portability ---
Author Organization [facility], Main Office Address [address] [facility] [address] [place] [id number] Care Team Providers Care Ornament Stapler Name Role Phone [facility] Bowling Pin Refinisher [phone] [facility] Gynecologi st KATT LOPEZ Primary Care Provider Assessment No assessment recorded. Plan of Treatment Reminders Order Date Submit Date Provider Last Modified By Organization Details Last Modified Time Details Appointments None recorde d. Lab TSH, serum or plasma 2022 023 LATA [facility], [address], [address], [place], [address], 3 17:40:02 BMP, serum or plasma 2022 023 LATA [facility], [address], [address], [place], [address], 3 17:38:39 rapid flu (A+B) 2022 023 LATA In-Office Order, Internal Use Only DO Not Attach Compendium DO Not Attach Compendium, Do Not Delete/merge, [id number] 3 15:02:36 strep group A, DNA, swab 2022 023 LATA In-Office Order, Internal Use Only DO Not Attach Compendium DO Not Attach Compendium, Do Not Delete/merge, [id number] 3 14:52:17 lipid panel, serum 2022 023 LATA [facility], [address], [address], [place], [address], 3 15:04:45 CBC w/ auto diff 2023 024 LATA [facility], [address], [address], [place], [address], 4 06:08:28 TSH + free T4, serum 2023 024 LATA [facility], [address], [address], [place], [address], 4 06:08:28 CMP, serum or plasma 2023 024 LATA [facility], [address], [address], [place], [address], 4 06:08:29 lipid panel, serum 2023 024 LATA [facility], [address], [address], [place], [address], 4 06:08:30 vitamin B12 + folate, serum or blood 2023 024 LATA [facility], [address], [address], [place], [address], 4 06:08:30 iron + TIBC + ferriti n, serum 2023 024 LATA [facility], [address], [address], [place], [address], 4 06:08:27 HbA1c (hemogl obin A1c), blood 2023 024 LATA [facility], [address], [address], [place], [address], 4 06:08:31 vitamin D, 25-hydr oxy, total, serum 2023 024 LATA [facility], [address], [place], [address], 4 06:08:31 Referral cardiol ogist referra l - Ongoing palpita tions since COVID in 2021. Even monitor is indicat ed. Echo and labs ordered . 2022 023 alida [facility], [address], [address], [place], [address], 3 11:59:[address]i st referra l - lumbar and right hip 2022 023 [email or web address] Not available 4 13:05:27 gynecol ogist referra l 2022 023 LATA Not available 3 15:07:32 spine center referra l - upper and lower back pain, XR 2022 showed moderat e degener ative changes . 2023 024 [facility], [address] [place], [address], 5 09:13:02 spine center referra l - upper and lower back pain, XR 2022 showed moderat e degener ative changes . [facility], [address] [facility], [place], [address], 5 09:13:03 gastroe nterolo gist referra l - Needs colon cancer screeni ng 2023 024 [email or web address] [facility], [address] [facility], [address], [place], [address], 4 14:50:21 Procedures cerumen removal (PROC) 2022 023 LATA In-Office Order, Internal Use Only DO Not Attach Compendium DO Not Attach Compendium, Do Not Delete/merge, [id number] 3 16:42:22 Surgeries None recorde d. Imaging electro cardiog reji 2022 023 [email or web address] In-Office Order, Internal Use Only DO Not Attach Compendium DO Not Attach Compendium, Do Not Delete/merge, [id number] 3 11:29:52 US, echocar diogram - Palpita tions post COVID 19. [email or web address] [place] [address] ([employer] [employer]), [address] [facility], [place], [address], 3 16:05:04 XR, lumbosa cral spine, 2 or 3 view 2022 023 [email or web address] Not available 3 15:19:17 XR, hip, unilate ral, 2 or 3 view 2022 023 LATA Not available 3 11:22:05 MAMMO, screeni ng, bilater al 2022 023 LATA Not available 3 15:07:59 Medication Orders prednis one 20 mg tablet 2022 023 [id number], [address] [facility], [place], [address], 3 14:31:07 prednis one 20 mg tablet 2022 023 [id number], [address] [facility], [place], [address], 3 14:31:07 Patient TargetsNo targets recorded. Patient Instructions Encounter Date Encounter Id Patient Instructions Last Modified By Organization Details Last Modified Time 11/20/2022 [id number] To call or retur n for worsening or concerns [email or web address] Not available 11/20/2022 14:32:56 01/14/2024 [id number] low back pain: exercises [email or web address] Not available [...] Not available 01/14/2024 13:30:42 Reason for Referral Bowling Pin Refinisher Referral for Pa lpitations Ongoing palpitations since COVID in 2021. Even monitor is indicated. Echo and labs ordered. Referring Physician: Michaelle Wallace, Internal Medicine, Encounter Date: 09/11/2022 Physical Therapist Referral for Pain in right hip joint lumbar and right hip Referring Physician: [facility], Encounter Date: 12/31/2022 Director Federal Referral for Sc reening for malignant neoplasm of cervix Referring Physician: Michaelle Wallace, Internal Medicine, Encounter Date: 01/08/2023 Press And Blow Machine Tender Referral for Screening for malignant neoplasm of colon Needs colon cancer screening Referring Physician: Katt Lopez [facility] Medicine, Encounter Date: 01/14/2024 Spine Center Referral for Ch ronic low back pain upper and lower back pain, XR 2022 showed moderate degenerative changes. Referring Physician: Katt Lopez [facility] Medicine, Encounter Date: 01/14/2024 Spine Center Referral for Th oracic back pain upper and lower back pain, XR 2022 showed moderate degenerative changes. Referring Physician: Katt Lopez [facility] Medicine, Encounter Date: 01/14/2024 Results Created Date Observation Date Name Description Value Unit Range Abnormal Flag Note LastModifiedBy Organization Detail LastModifiedTime 09/12/19 23 09/11/2022 BASIC METAB OLIC PANEL glucose 104 mg/dL (70-99 ) high Not Available [facility] [address], [place], [address], 09/11/2022 17:38:39 09/12/19 23 09/11/2022 BASIC METAB OLIC PANEL BUN 10 mg/dL (6-20) Not Available [facility] [address] [place], [address], 09/11/2022 17:38:39 09/12/19 23 09/11/2022 BASIC METAB OLIC PANEL creatinine 0.8 mg/dL (0.5-1 .0) Not Available [facility] [address] [place], [address], 09/11/2022 17:38:39 09/12/19 23 09/11/2022 BASIC METAB OLIC PANEL sodium 138 mmol/ L (133-1 45) Not Available [facility] [address] [place], [address], 09/11/2022 17:38:39 09/12/19 23 09/11/2022 BASIC METAB OLIC PANEL potassium 4.3 mmol/ L (3.6-5 .2) Not Available [facility] [address] [place], [address], 09/11/2022 17:38:39 09/12/19 23 09/11/2022 BASIC METAB OLIC PANEL chloride 104 mmol/ L (98-10 7) Not Available [facility] [address] [place], [address], 09/11/2022 17:38:39 09/12/19 23 09/11/2022 BASIC METAB OLIC PANEL bicarbonate 27 mmol/ L (22-29 ) Not Available [facility] [address] [place], [address], 09/11/2022 17:38:39 09/12/19 23 09/11/2022 BASIC METAB OLIC PANEL anion gap 7 (4-17) Not Available [facility] [address] [place], [address], 09/11/2022 17:38:39 09/12/19 23 09/11/2022 BASIC METAB OLIC PANEL calcium 9.8 mg/dL (8.6-1 0.5) Not Available [facility] [address] [place], [address], 09/11/2022 17:38:39 09/12/19 23 09/11/2022 BASIC METAB [...] [facility] [address], [place], [address], 09/11/2022 17:38:39 09/12/19 23 09/11/2022 TSH TSH 1.93 uIU/m L (0.4-4 .2) Not Available [facility] [address], [place], [address], 09/11/2022 17:40:01 11/21/19 23 11/20/2022 rapid flu (A+B) Flu A negati ve Not Available In-Office Order Internal Use Only DO Not Attach Compendium DO Not Attach Compendium, Do Not Delete/merge, [id number] 11/20/2022 14:32:23 11/21/19 23 11/20/2022 rapid flu (A+B) Flu B negati ve Not Available In-Office Order Internal Use Only DO Not Attach Compendium DO Not Attach Compendium, Do Not Delete/merge, [id number] 11/20/2022 14:32:23 11/21/19 23 11/20/2022 strep group A, DNA, swab ID NOW Strep A 2 (rapid molecular test) negati ve Not Available In-Office Order Internal Use Only DO Not Attach Compendium DO Not Attach Compendium, Do Not Delete/merge, [id number] 11/20/2022 14:32:27 01/09/20 23 01/08/2023 cerum en remov al (PROC ) done by Bolivar lee Not Available In-Office Order Internal Use Only DO Not Attach Compendium DO Not Attach Compendium, Do Not Delete/merge, [id number] 01/08/2023 15:05:19 01/17/20 24 01/18/2024 FE+TI BC+FE R iron bind.cap.(TI BC) 303 ug/dL 250-45 0 normal Not Available [facility] ([facility]) [address] [place], [address], 01/18/2024 06:08:27 01/17/20 24 01/18/2024 FE+TI BC+FE R UIBC 234 ug/dL 131-42 5 normal Not Available [facility] ([facility]) [address] [place], [address], 01/18/2024 06:08:27 01/17/20 24 01/18/2024 FE+TI BC+FE R iron 69 ug/dL 27-159 normal Not Available [facility] ([facility]) [address] [place], [address], 01/18/2024 06:08:27 01/17/20 24 01/18/2024 FE+TI BC+FE R iron saturation 23 % 15-55 normal Not Available [facility] ([facility]) [address] [place], [address], 01/18/2024 06:08:27 01/17/20 24 01/18/2024 FE+TI BC+FE R ferritin 134 NG/mL 15-150 normal Not Available [facility] ([facility]) [address] [place], [address], 01/18/2024 06:08:27 01/17/20 24 01/17/2024 TSH+F REE T4 TSH 2.100 uIU/m L 0.450- 4.500 normal Not Available [facility] ([facility]) [address] [place], [address], 01/18/2024 06:08:28 01/17/20 24 01/17/2024 TSH+F REE T4 T4,free(dire ct) 0.83 NG/dL 0.82-1 .77 normal Not Available [facility] ([facility]) [address] [place], [address], 01/18/2024 06:08:28 01/17/20 24 01/18/2024 CBC WITH DIFFE RENTI AL/PL ATELE T WBC 7.0 x10e3 /uL 3.4-10 .8 normal Not Available [facility] ([facility]) [address] [place], [address], 01/18/2024 06:08:28 01/17/20 24 01/18/2024 CBC WITH DIFFE RENTI AL/PL ATELE T RBC 4.68 x10e6 /uL 3.77-5 .28 normal Not Available [facility] ([facility]) [address] [facility], [place], [address], 01/18/2024 06:08:28 01/17/20 24 01/18/2024 CBC WITH DIFFE RENTI AL/PL ATELE T hemoglobin 13.8 g/dL 11.1-1 5.9 normal Not Available [facility] ([facility]) [address] [place], [address], 01/18/2024 06:08:28 01/17/20 24 01/18/2024 CBC WITH DIFFE RENTI AL/PL ATELE T hematocrit 43.3 % 34.0-4 6.6 normal Not Available [facility] ([facility]) [address] [place], [address], 01/18/2024 06:08:28 01/17/20 24 01/18/2024 CBC WITH DIFFE RENTI AL/PL ATELE T MCV 93 fL 79-97 normal Not Available [facility] ([facility]) [address] [place], [address], 01/18/2024 06:08:28 01/17/20 24 01/18/2024 CBC WITH DIFFE RENTI AL/PL ATELE T MCH 29.5 pg 26.6-3 3.0 normal Not Available [facility] ([facility]) [address] [facility], [place], [address], 01/18/2024 06:08:28 01/17/20 24 01/18/2024 CBC WITH DIFFE RENTI AL/PL ATELE T MCHC 31.9 g/dL 31.5-3 5.7 normal Not Available [facility] ([facility]) [address] [facility], [place], [address], 01/18/2024 06:08:28 01/17/20 24 01/18/2024 CBC WITH DIFFE RENTI AL/PL ATELE T RDW 12.7 % 11.7-1 5.4 Not Available [facility] ([facility]) [address] [facility], [place], [address], 01/18/2024 06:08:28 01/17/20 24 01/18/2024 CBC WITH DIFFE RENTI AL/PL ATELE T platelets 268 x10e3 /uL 150-45 0 normal Not Available [facility] ([facility]) [address] [facility], [place], [address], 01/18/2024 06:08:28 01/17/20 24 01/18/2024 CBC WITH DIFFE RENTI AL/PL ATELE T neutrophils 51 % not estab. normal Not Available [facility] ([facility]) [address] [facility], [place], [address], 01/18/2024 06:08:28 01/17/20 24 01/18/2024 CBC WITH DIFFE RENTI AL/PL ATELE T lymphs 38 % not estab. normal Not Available [facility] ([facility]) [address] [facility], [place], [address], 01/18/2024 06:08:28 01/17/20 24 01/18/2024 CBC WITH DIFFE RENTI AL/PL ATELE T monocytes 7 % not estab. normal Not Available [facility] ([facility]) [address] [facility], [place], [address], 01/18/2024 06:08:28 01/17/20 24 01/18/2024 CBC WITH DIFFE RENTI AL/PL ATELE T eos 3 % not estab. normal Not Available [facility] ([facility]) [address] [facility], [place], [address], 01/18/2024 06:08:28 01/17/20 24 01/18/2024 CBC WITH DIFFE RENTI AL/PL ATELE T basos 1 % not estab. normal Not Available [facility] ([facility]) [address] [facility], [place], [address], 01/18/2024 06:08:28 01/17/20 24 01/18/2024 CBC WITH DIFFE RENTI AL/PL ATELE T immature cells DENTAL ASSISTANT Not Available [facility] ([facility]) [address] [place], [address], 01/18/2024 06:08:28 01/17/20 24 01/18/2024 CBC WITH DIFFE RENTI AL/PL ATELE T neutrophils (absolute) 3.6 x10e3 /uL 1.4-7. 0 normal Not Available [facility] ([facility]) [address] [place], [address], 01/18/2024 06:08:28 01/17/20 24 01/18/2024 CBC WITH DIFFE RENTI AL/PL ATELE T lymphs (absolute) 2.7 x10e3 /uL 0.7-3. 1 normal Not Available [facility] ([facility]) [address] [place], [address], 01/18/2024 06:08:28 01/17/20 24 01/18/2024 CBC WITH DIFFE RENTI AL/PL ATELE T monocytes(ab solute) 0.5 x10e3 /uL 0.1-0. 9 normal Not Available [facility] ([facility]) [address] [facility], [place], [address], 01/18/2024 06:08:28 01/17/20 24 01/18/2024 CBC WITH DIFFE RENTI AL/PL ATELE T eos (absolute) 0.2 x10e3 /uL 0.0-0. 4 normal Not Available [facility] ([facility]) [address] [facility], [place], [address], 01/18/2024 06:08:28 01/17/20 24 01/18/2024 CBC WITH DIFFE RENTI AL/PL ATELE T baso (absolute) 0.1 x10e3 /uL 0.0-0. 2 normal Not Available [facility] ([facility]) [address] [facility], [place], [address], 01/18/2024 06:08:28 01/17/20 24 01/18/2024 CBC WITH DIFFE RENTI AL/PL ATELE T immature granulocytes 0 % not estab. Not Available [facility] ([facility]) [address] [facility], [place], [address], 01/18/2024 06:08:28 01/17/20 24 01/18/2024 CBC WITH DIFFE RENTI AL/PL ATELE T immature grans (abs) 0.0 x10e3 /uL 0.0-0. 1 Not Available [facility] ([facility]) [address] [facility], [place], [address], 01/18/2024 06:08:28 01/17/20 24 01/18/2024 CBC WITH DIFFE RENTI AL/PL ATELE T NRBC DENTAL ASSISTANT Not Available [facility] ([facility]) [address] [facility], [place], [address], 01/18/2024 06:08:28 01/17/20 24 01/18/2024 CBC WITH DIFFE RENTI AL/PL ATELE T hematology comments: DENTAL ASSISTANT Not Available [facility] ([facility]) [address] [facility] [place], [address], 01/18/2024 06:08:28 01/17/20 24 01/17/2024 COMP. METAB OLIC PANEL (14) glucose 94 mg/dL 70-99 normal Not Available [facility] ([facility]) [address] [facility] [place], [address], 01/18/2024 06:08:29 01/17/20 24 01/17/2024 COMP. METAB OLIC PANEL (14) BUN 12 mg/dL 6-24 normal Not Available [facility] ([facility]) [address] [facility] [place], [address], 01/18/2024 06:08:29 01/17/20 24 01/17/2024 COMP. METAB OLIC PANEL (14) creatinine 0.89 mg/dL 0.57-1 .00 normal Not Available [facility] ([facility]) [address] [facility] [place], [address], 01/18/2024 06:08:29 01/17/20 24 01/17/2024 COMP. METAB OLIC PANEL (14) eGFR 79 mL/mi n/1.7 3 >59 normal Not Available [facility] ([facility]) [address] [facility] [place], [address], 01/18/2024 06:08:29 01/17/20 24 01/17/2024 COMP. METAB OLIC PANEL (14) BUN/creatini ne ratio 13 9-23 normal Not Available [facility] ([facility]) [address] [facility] [place], [address], 01/18/2024 06:08:29 01/17/20 24 01/17/2024 COMP. METAB OLIC PANEL (14) sodium 142 mmol/ L 134-14 4 normal Not Available [facility] ([facility]) [address] [facility] [place], [address], 01/18/2024 06:08:29 01/17/20 24 01/17/2024 COMP. METAB OLIC PANEL (14) potassium 4.2 mmol/ L 3.5-5. 2 normal Not Available [facility] ([facility]) [address] [facility] [place], [address], 01/18/2024 06:08:29 01/17/20 24 01/17/2024 COMP. METAB OLIC PANEL (14) chloride 107 mmol/ L 96-106 above high normal Not Available [facility] ([facility]) [address] [place], [address], 01/18/2024 06:08:29 01/17/20 24 01/17/2024 COMP. METAB OLIC PANEL (14) carbon dioxide, total 21 mmol/ L 20-29 normal Not Available [facility] ([facility]) [address] [facility] [place], [address], 01/18/2024 06:08:29 01/17/20 24 01/17/2024 COMP. METAB OLIC PANEL (14) calcium 9.3 mg/dL 8.7-10 .2 normal Not Available [facility] ([facility]) [address] [facility] [place], [address], 01/18/2024 06:08:29 01/17/20 24 01/17/2024 COMP. METAB OLIC PANEL (14) protein, total 7.7 g/dL 6.0-8. 5 normal Not Available [facility] ([facility]) [address] [facility] [place], [address], 01/18/2024 06:08:29 01/17/20 24 01/17/2024 COMP. METAB OLIC PANEL (14) albumin 4.4 g/dL 3.9-4. 9 normal Not Available [facility] ([facility]) [address] [facility] [place], [address], 01/18/2024 06:08:29 01/17/20 24 01/17/2024 COMP. METAB OLIC PANEL (14) globulin, total 3.3 g/dL 1.5-4. 5 Not Available [facility] ([facility]) [address] [facility] [place], [address], 01/18/2024 06:08:29 01/17/20 24 01/17/2024 COMP. METAB OLIC PANEL (14) bilirubin, total 0.3 mg/dL 0.0-1. 2 normal Not Available [facility] ([facility]) [address] [facility] [place], [address], 01/18/2024 06:08:29 01/17/20 24 01/17/2024 COMP. METAB OLIC PANEL (14) alkaline phosphatase 117 IU/L 44-121 normal Not Available [facility] ([facility]) [address] [facility] [place], [address], 01/18/2024 06:08:29 01/17/20 24 01/17/2024 COMP. METAB OLIC PANEL (14) AST (SGOT) 23 IU/L 0-40 normal Not Available [facility] ([facility]) [address] [place], [address], 01/18/2024 06:08:29 01/17/20 24 01/17/2024 COMP. METAB OLIC PANEL (14) ALT (SGPT) 32 IU/L 0-32 normal Not Available [facility] ([facility]) [address] [place], [address], 01/18/2024 06:08:29 01/17/20 24 01/17/2024 LIPID PANEL cholesterol, total 186 mg/dL 100-19 9 normal Not Available [facility] ([facility]) [address] [facility], [place], [address], 01/18/2024 06:08:30 01/17/20 24 01/17/2024 LIPID PANEL triglyceride s 132 mg/dL 0-149 normal Not Available [facility] ([facility]) [address] [facility] [place], [address], 01/18/2024 06:08:30 01/17/20 24 01/17/2024 LIPID PANEL HDL cholesterol 48 mg/dL >39 normal Not Available [facility] ([facility]) [address] [facility] [place], [address], 01/18/2024 06:08:30 01/17/20 24 01/17/2024 LIPID PANEL VLDL cholesterol elliott 24 mg/dL 5-40 Not Available [facility] ([facility]) [address] [facility] [place], [address], 01/18/2024 06:08:30 01/17/20 24 01/17/2024 LIPID PANEL LDL chol calc ([facility]) 114 mg/dL 0-99 above high normal Not Available [facility] ([facility]) [address] [place], [address], 01/18/2024 06:08:30 01/17/20 24 01/17/2024 LIPID PANEL LDL calc comment: DENTAL ASSISTANT Not Available [facility] ([facility]) [address] [facility], [place], [address], 01/18/2024 06:08:30 01/17/20 24 01/18/2024 VITAM IN B12 AND FOLAT E vitamin B12 800 pg/mL 232-12 45 normal Not Available [facility] ([facility]) [address] [place], [address], 01/18/2024 06:08:30 01/17/20 24 01/18/2024 VITAM IN B12 AND FOLAT E folate (folic acid), serum 15.0 NG/mL >3.0 normal A serum folat e zachary ntrat ion of less than 3.1 ng/mL is consi dered to repre sent clini elliott defic iency . Not Available [facility] ([facility]) [address] [place], [address], 01/18/2024 06:08:30 01/17/20 24 01/18/2024 HEMOG LOBIN A1C hemoglobin A1C 5.6 % 4.8-5. 6 normal Predi abete s: 5.7 - 6.4 Diabe shan: >6.4 Glyce manuel contr ol for adult s with diabe shan: <7.0 Not Available [facility] ([facility]) [address] [facility], [place], [address], 01/18/2024 06:08:31 01/17/20 24 01/18/2024 VITAM IN [...] um and D. Uzma arzate [place]: [facility] Press . 2. Delilah noel MF, Jonah myrick [place], Tawanna off-F errar i PERRY, et al. Evalu ation , treat ment, and preve ntion of vitam in D defic iency : an Endoc rine Socie ty clini elliott pract ice guide line. JCEM. 2010; 96(7) :1911 -30. Not Available [facility] ([facility]) [address] [facility], [place], [address], 01/18/2024 06:08:31 09/12/19 23 09/24/2022 elect barb abbott am No observ ation record ed. [email or web address] In-Office Order Internal Use Only DO Not Attach Compendium DO Not Attach Compendium, Do Not Delete/merge, [id number] 09/24/2022 16:13:34 09/12/19 elect barb diogr am No observ ation record ed. [email or web address] In-Office Order Internal Use Only DO Not Attach Compendium DO Not Attach Compendium, Do Not Delete/merge, [id number] 09/11/2022 11:30:00 01/01/20 23 12/31/2022 XR, hip, [...] tissue s. IMPRES RAUDEL: Normal . WSN: [id number] Orderi ng Physic erin: Paul Eric Dictat ed By: Mariam Sullivan MD Dictat ed Date/T jesu: 11:18 a Review ed By: Mariam Sullivan MD Signed By: Mariam Sullivan MD Signed Date/T jesu: 11:18 am Transc ribed By: JACK Transc ribed Date/T jesu: 11:18 am Patien t Class: Outpat ient [facility] (Outpt Imaging) [address] [place], [address], 01/01/2023 08:02:33 01/01/2012/31/2022 XR, lumbo sacra l [...] ng. 2. Mild stool retent ion. WSN: [id number] Orderi ng Physic erin: Paul Eric ie Dictat ed By: Peg roland MD, Mariam gardner Dictat ed Date/T jesu: 11:23 a Review ed By: Peg roland MD, Mariam gardner Signed By: Peg roland MD, Mariam gardner Signed Date/T jesu: 11:23 am Transc ribed By: JACK Transc ribed Date/T jesu: 11:20 am Patien t Class: Outpat ient [facility] (Outpt Imaging) [address], [place], [address], 01/14/2023 15:19:17 06/05/20 23 05/14/2023 MAMMO , scree jake, bilat eral No observ ation record ed. [email or web address] [facility] [address] [place], [address], 06/05/2023 15:23:06 06/12/20 23 06/12/2023 XR, hand No observ ation record ed. [email or web address] [facility] (Medical Records) [address] [place], [address], 01/03/2024 15:44:16 07/09/19 24 07/05/2023 US, young palacios No observ ation record ed. [address] (Medical Records) [address] [place], [address], 07/09/2023 10:17:40 07/11/19 24 07/10/2023 biops y thyro id, percu taneo us core needl e (PROC ) No observ ation record ed. [address] (Medical Records) [address] [place], [address], 07/11/2023 19:41:10 05/26/20 24 05/19/2024 MAMMO , scree jake, bilat eral No observ ation record ed. [facility]'s [address] [place], [address], 05/26/2024 08:54:37 Result Notes None recorded. Problems Name Problem SNOMED Code Status Onset Date Resolution Date Notes Provider Name and Address Organization Details Recorded Time Fibromyalgi a 835803900 Active 2021 Michaelle Wallace PA-C [address], [place], [address], [facility] 2 14:43:17 Moderate persistent asthma 923855568 Active 2021 Michaelle Wallace PA-C [address], [place], [address], [facility] 2 15:12:12 Family history of Thyroid disorder 834067797 Active 2021 Michaelle Wallace PA-C [address], [place], [address], [facility] 2 15:13:09 Multinodula r goiter 496320887 Active 2021 Michaelle Wallace PA-C [address], [place], [address], [facility] 2 09:03:54 Palpitation s 16427543 Active 2022 Michaelle Wallace PA-C [address], [place], [address], [facility] 3 11:23:20 Acute pharyngitis 411216638 Completed 202201/08/2023 [facility] 3 14:32:44 Fatigue 85047738 Active 2023 MATTY Beebe [address] [facility] [address], [place], [address], [facility] 4 13:30:16 Hyperlipide blanche 42219807 Active 2023 MATTY Beebe [facility] [address], [place], [address], [facility] 4 13:30:34 Vitamin D deficiency 67253126 Active 2023 MATTY Beebe [address] [place] [address], [place], [address], [facility] 4 15:06:17 Anemia 198077816 Active 2023 [facility] [address] [place] [address], [place], [address], [facility] 4 15:06:23 Impaired fasting glycemia 004626491 Active 2023 MATTY Beebe [address] [place] [address], [place], [address], [facility] 4 15:07:04 Chronic low back pain 359500555 Active 2023 MATTY Beebe [address] [place] [address], [place], [address], [facility] 4 15:12:19 Thoracic back pain 604558062 Active 2023 [facility] Bee[facility] [address] [address], [place], [address], [facility] 4 15:12:27 Menopausal flushing 006880358 Active 2023 MATTY Beebe [address] [place] [address], [place], [address], [facility] 4 15:44:36 Problem Notes None recorded. Procedures Surgical History Date Name Laterality Status Provider Name and Address Organization Details Recorded Time 05/14/20 Most Recent Mammogram completed Benita Haq [facility] 06/05/2023 15:23:00 05/14/20 23 Mammogram both breasts completed Benita Haq [facility] 06/05/2023 15:22:53 04/20/20 22 Date of Last Pap Smear completed Lori Akash [facility] 04/25/2022 09:48:29 04/17/20 Endometrial Ablation completed Stephanie Hunyh MA [facility] 01/05/2022 14:16:08 06/30/19 Breast Surgery completed Stephanie Huynh MA [facility] 01/05/2022 14:16:08 06/17/19 Tubal Ligation completed Stephanie Huynh MA [facility] 01/05/2022 14:16:08 Imaging Results Imaging Date Name Status LastModified by Organization Details LastModified Time 09/24/2022 electrocardiogram completed [email or web address] In-Offi ce Order Internal Use Only DO Not Attach Compendium DO Not Attach Compendium, Do Not Delete/merge, [id number] 09/24/2022 16:13:34 09/11/2022 electrocardiogram completed [email or web address] In-Offi ce Order Internal Use Only DO Not Attach Compendium DO Not Attach Compendium, Do Not Delete/merge, [id number] 09/11/2022 11:30:00 12/31/2022 XR, hip, unilateral, 2 or 3 view completed LATA [facility] (Outpt Imaging) [address] [place], [address], 01/01/2023 08:02:33 12/31/2022 XR, lumbosacral spine, 2 or 3 view completed yeni [facility] (Outpt Imaging) [address] [place], [address], 01/14/2023 15:19:17 05/14/2023 MAMMO, screening, bilateral completed [email or web address] [facility] [address] [place] [address] [place], [address], 06/05/2023 15:23:06 06/12/2023 XR, hand completed [email or web address] [facility] (Medical Records) [address] [place], [address], 01/03/2024 15:44:16 07/05/2023 US, pelvic wall completed [address] (Medical Records) [address] [place], [address], 07/09/2023 10:17:40 07/10/2023 biopsy thyroid, percutaneous core needle (PROC) completed [address] (Medical Records) [address] [place], [address], 07/11/2023 19:41:10 05/19/2024 MAMMO, screening, bilateral completed [facility] [address] [place] [address] [place], [address], 05/26/2024 08:54:37 Procedure Notes None recorded. Medical [...] % 100 % 84 /min 25.3 kg/m2 56342.3 3 g 97.9 [degF] 107 mm[Hg] 72 mm[Hg] Pam Rodgers MA [facility] 3 10:57:22 Date Recorded Body height Body mass index (BMI) Body weight Heart rate Oxygen saturation Oxygen saturation in Arterial blood by Pulse oximetry Body temperature Systolic blood pressure Diastolic blood pressure Provider Name and Address Organization Details Last Updated DateTime 3 165.74 cm 25.1 kg/m2 65898.4 4 g 82 /min 95 % 95 % 97.9 [degF] 117 mm[Hg] 78 mm[Hg] Ruma Mcnamara MA [facility] 3 14:22:10 Date Recorded Body height Body mass index (BMI) Body weight Oxygen saturation Oxygen saturation in Arterial blood by Pulse oximetry Heart rate Body temperature Systolic blood pressure Diastolic blood pressure Provider Name and Address Organization Details Last Updated DateTime 3 165.74 cm 25.4 kg/m2 07118.9 2 g 97 % 97 % 79 /min 98 [degF] 113 mm[Hg] 79 mm[Hg] Pam Rodgers MA [facility] 3 10:07:22 Date Recorded Body height Body mass index (BMI) Body weight Heart rate Oxygen saturation Oxygen saturation in Arterial blood by Pulse oximetry Body temperature Systolic blood pressure Diastolic blood pressure Provider Name and Address Organization Details Last Updated DateTime 3 165.74 cm 24.9 kg/m2 86563.4 5 g 75 /min 98 % 98 % 98 [degF] 108 mm[Hg] 68 mm[Hg] Rudy Painting MA [facility] 3 14:32:56 Date Recorded Body height Body mass index (BMI) Body weight Heart rate Oxygen saturation Oxygen saturation in Arterial blood by Pulse oximetry Body temperature Systolic blood pressure Diastolic blood pressure Provider Name and Address Organization Details Last Updated DateTime 4 165.74 cm 25.6 kg/m2 21787.8 2 g 77 /min 98 % 98 % 97.6 [degF] 97 mm[Hg] 64 mm[Hg] Laurence hart MA [facility] 4 14:47:35 Social History Question Answer Notes LastModified by Organizat ion Details LastModified Time Tobacco Smoking Status Never Smoker [facility] 01/05/2022 14:16:05 What Is Your Level [...] not available 01/05/2022 What Is Your Occupation? [employer] Information not available 01/14/2024 Do You Take [...] Recorded Time MMR 9 completed MIREILLE Apodaca [facility] 01/05/2022 14:23:52 Tdap 7 completed MIREILLE Apodaca [facility] 01/05/2022 14:23:52 COVID-19, mRNA, LNP-S, PF, 30 mcg/0.3 mL dose 1 completed MIREILLE Apodaca [facility] 01/05/2022 14:23:52 Hep B, adult 9 completed MIREILLE Apodaca [facility] 01/05/2022 14:23:52 COVID-19, mRNA, LNP-S, PF, 30 mcg/0.3 mL dose 1 completed MIREILLE Apodaca [facility] 01/05/2022 14:23:52 Influenza, split virus, quadrivalent, PF 1 completed MIREILLE Apodaca [facility] 01/05/2022 14:23:52 Influenza, split virus, quadrivalent, PF 9 completed [facility] 01/05/2022 14:23:52 COVID-19, mRNA, LNP-S, PF, 30 mcg/0.3 mL dose 1 completed [facility] 01/05/2022 14:23:52 Hep B, adult 9 completed MIREILLE Apodaca, [facility] 01/05/2022 14:23:52 Influenza, split virus, quadrivalent, preservative 0 completed [facility] 01/05/2022 14:23:52 Hep B, adult 9 completed [facility] 01/05/2022 14:23:52 Influenza, MDCK, quadrivalent, PF 2 completed [facility] 11/20/2022 14:16:38 COVID-19, mRNA, LNP-S, bivalent, PF, 30 mcg/0.3 mL dose 2 completed [facility] 11/20/2022 14:16:38 Past Encounters Encounter ID Performer Location Encounter Start Date Encounter Closed Date Diagnosis/Indication Diagnosis SNOMED-CT Code Diagnosis ICD10 Code Diagnosis Note [id number] Michaelle Wallace PA-C Main Office [address] [facility] [address] [place] [address] 01/05/2022 14:03:27 01/05/2022 15:06:08 Adult health examination 614032366 Z00.00 recommend second COVID booster Fibromyalgia 049627779 M 77.7 f/u with rheumatolo gist Screening for malignant neoplasm of cervix 766108096 Z12.4 Screening for malignant neoplasm of breast 837385465 Z12.39 Screening for malignant neoplasm of colon 262722780 Z12.11 Hyperlipidemia 90241756 E78.5 Vitamin D deficiency 347 54053 E55.9 Thyroid nodule 351743925 E04.1 Single R. lobe nodule. Schedule ultrasound and labs. Moderate p ersistent asthma 084819874 J45.40 f/u with pulmonary. [id number] Michaelle Wallace PA-C Main Office [address] [facility] [address] [place] [address] 09/11/2022 10:49:03 09/11/2022 11:28:59 Palpitations 51337125 R00.2 check thyroid labs and bmp. Schedule echo cardiogram and refer to cardiology for an event monitor. PT. was advised to avoid excessive physical activity or caffeine. [id number] MATTY Beebe Main Office [address] [facility] [address] [place] [address] 11/20/2022 14:05:57 11/20/2022 14:54:55 Fever 648235360 R50.9 flu negative A/B, likely viral illness, hydration, rest mucinex as needed, may start prednisone burst. Acute pharyngitis 469524 003 J02.9 strep negative. Moderate p ersistent asthma 576725776 J45.40 using her inhalers and neb but coughing persists. start prednisone burst, hydration, rest, continue mucinex as needed. Continue inhalers/ nebs as needed. If sx persist or worsen please call/ return. [id number] LUBNA CANO MD Main Office [address] [place] [address] 12/31/2022 09:45:08 12/31/2022 10:23:46 Acute low back pain 365107962 M54.50 - pain located near the right [...] improvemen t -> to consider MRI and simulation specialist Pain in ri ght hip joint 0278519440 47450 M25.551 - pt believes pain is coming from the hip but after history and exam believe is more likely coming from lumbar spine- for patient re-assuran ce ordered X-ray of the right hip for further evaluation [id number] Michaelle Wallace PA-C Main Office [address] [facility] [address] [place] [address] 01/08/2023 14:10:26 01/08/2023 15:30:12 Adult health examination 129058973 Z00.00 vaccines are up to date. Moderate p ersistent asthma 076539412 J45.40 f/u with pulmonary. Multinodular goiter 2375 58714 E04.2 f/u with endo yearly. Fibromyalgia 316556619 M 77.7 f/u with rheumatolo gist Screening for malignant neoplasm of breast 453161341 Z12.39 Screening for malignant neoplasm of cervix 394952271 Z12.4 Hyperlipidemia 12137400 E78.5 Impacted c erumen in right ear 6908418760 032383 H61.21 [id number] MATTY Beebe Main Office [address] [facility] [address] [place] [address] 01/14/2024 14:31:36 01/14/2024 15:24:24 Multinodular goiter 446692796 E04.2 sees endocrinol ogy yearly Moderate p ersistent asthma 541417560 J45.40 Fibromyalgia 631280559 M 79.7 Adult heal th examination 384514716 Z00.00 Mammo and pap UTD, april and may, needs colonoscop y will refer. pulm May 13. Fatigue 39734330 R53.83 Hyperlipidemia 93401398 E78.5 Vitamin D deficiency 347 88086 E55.9 Anemia 399837704 D64.9 Impaired f asting glycemia 840118018 R73.01 Screening for malignant neoplasm of colon 096335397 Z12.11 due for screening will refer. Chronic low back pain 27 7528928 M54.50 will refer to [facility] for further eval. Thoracic back pain 32927 8004 M54.6 Menopausal flushing 1983 68598 N95.1 does not want hormone therapy, has tried OTC remedies. Health Concerns Section Related Observation LastModified by Organization Detai ls LastModified Time None Recorded Concern Status LastModified by Organization Details LastModified Time None Recorded Advance Directives Directive None Recorded Payers Encounter Date Sequence Insurance Name Policy Number Policy Goodrich Covered Member ID Goodrich Member ID Guarantor Name 09/11/2022 1 [facility] [id number] Damarie Rodriguez [id number] Damarie Rodriguez 11/20/2022 1 [facility] [id number] Damarie Rodriguez [id number] Damarie Rodriguez 12/31/2022 1 [facility] [id number] Damarie Rodriguez [id number] Damarie Rodriguez 01/08/2023 1 [facility] [id number] Damarie Rodriguez [id number] Damarie Rodriguez 01/14/2024 1 [facility] [id number] Damarie Rodriguez [id number] Damarie Rodriguez Notes Date Note Type Note [...] EKG today is unremarkable. Michaelle Wallace PA-C [address] [address], [place], [address], [facility] 09/11/2022 12:12:09 11/20/2022 text/html Throat PainRepor tracey bypatient.Notes:Presen ts for sx sore throat, ear pain, sinus pain/ pressure, + coughing with phlegm- yellow/ bloody unclear if fever due to hot flashes. + chills, feels tired.using mucinex but no relief. no sick contacts MATTY Beebe [address] [address], [place], [address], [facility] 11/20/2022 15:07:31 12/31/2022 text/html Musculoskeletal PainReported bypatient.Location:rica [...] started yesterday 12/30. 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 Pt does have a histroy of upper back spasms. Pt has been taking Ibuprofen (800mg every 6 hours) and using her muscle relaxers which do help. LUBNA CANO MD [address] [address], [place], [address], [facility] 12/31/2022 12:37:39 01/08/2023 text/html Generic HPI TemplateReported bypatient.Notes:47 year old female for annual well visit.Moderate persistent asthma followed by pulmonary, on Breo and Symbicort, Albuterol PRN> Fibromyalgia followed by bus driver, on muscle relaxants PRN and lidocaine patch. Used to take pregabalin as well.Family h/o colo cancer , thyroid disease, Lupus in sister. NO prior colonoscopy. Due for DIVE [facility] and mammo in fall.Multinodular goiter. Pt. was referred to endo at [facility] and had biopsy done which was benign. Her TSH was also normal.BMI is 24.9. Vaccines are up to date. Sees DIVE MASTER and has mammogram yearly. NO records in chart. Michaelle Wallace PA-C [address] [address], [place], [address], [facility] 01/08/2023 15:11:26 01/14/2024 text/html Generic HPI TemplateReported bypatient.Notes:Presen ts for PE, no concerns. Has been having back pain- negative Xray, pain is everywhere, + numbness and tingling. XR showed degenerative disc disease. Katt Lopez, [facility] [address] [facility] [address], [place], [address], [facility] 01/14/2024 15:46:12 OBGyn Episode No OBEpisode recorded.
== END 2024-07-29 16:03 | disposition home or self-care (01) ==
LOC: HO.US 16:02
PROVIDERS: PCP Registered Nurse; Visit Provider Advanced Practice Midwife
DX: R10.2 Pelvic and perineal pain (principal); N95.0 Postmenopausal bleeding
CPT/HCPCS: 76830; 76856

== ENCOUNTER → 2024-07-29 16:04 | Outpatient (BNV) | payer OTHER, SELFPAY | PROVIDERS: PCP Registered Nurse; Visit Provider Radiology Diagnostic Radiology | DX: R10.2 Pelvic and perineal pain (principal) | CPT/HCPCS: 76830; 76856 ==

== ENCOUNTER 2024-08-06 15:11 | Outpatient (AMB) | payer OTHER, SELFPAY ==
--- NOTE | 2024-08-06 15:12 | MHC.OFFVIS ---
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 Time spent included review of pertinent office notes in the electronic health record; review of laboratory and imaging results; review of personal family medical history; discussing diagnosis and plan of care with the patient; documenting the encounter in the EMR. Patient presents to discuss: Ultrasound findings and abnormal Pap smear results. History of postmenopausal bleeding. [facility] Medical History (Updated 08/06/24 @ 15:36 by Adenike Benoit CNM) Atypical squamous cells of undetermined significance (ASC-US) on cervical Pap smear PMB (postmenopausal bleeding) Pelvic pain Hx of thromboembolism Multinodular thyroid Asthma Fibromyalgia Surgical History (Updated 07/30/24 @ 08:45 by Adenike Benoit CNM) Hx of ultrasound guided needle biopsy History of endometrial ablation Hx of bilateral breast reduction surgery History of tubal ligation History of surgery H/O LEEP Family History (Updated 07/15/24 @ 15:32 by ANNABELLE Glover) Father HTN (hypertension) Diabetes mellitus Mother High cholesterol Thyroid disease Lung cancer Maternal Grandfather Cancer Maternal Grandmother Cancer Paternal Grandmother Colon cancer Maternal Aunt Breast cancer Social History Household Members: Spouse Housing: House Alcohol intake: never Patient Tobacco Use Status: Never used Tobacco Second Hand Smoke Exposure: No Current occupational status: employed 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 Sexual orientation: Straight/Heterosexual Gender identity: Female Review of Systems Const All systems reviewed & are unremarkable except as noted in HPI and below Endo Reports no additional complaints Physical Exam Const General: cooperative, healthy appearing and no acute distress Psych Appearance: well kempt Attitude: cooperative Thought process: Normal thought process present Telehealth Telehealth Telehealth Platform: Telephone Location of provider rendering services: practice address Location of patient: address on file Patient Identification confirmed using: Name, : Yes Telehealth method: video Patient verbally consented to treatment: Yes Patient verbally consented to billing insurance company: Yes Patient informed of any privacy concerns related to visit: Yes Results Reviewed Results Reviewed: [address] [address] Ultrasound Report Signed Patient: Pauly Rodriguez MR#: [id number] : 1975 Acct:[id number] Age/Sex: 48 / F ADM Date: 07/29/24 Loc: HO.US Attending Dr: Adenike Benoit CNM Ordering Physician: Adenike Benoit CNM Date of Service: 07/29/24 Procedure(s): US pelvic and transvaginal Accession Number(s): [id number] cc: Adenike Benoit CNM; KATT NASH PA-C~ EXAMINATION: US PELVIS TRANSABDOMINAL AND TRANSVAGINAL HISTORY: Z01.419 - Encounter for gynecological examination (general) (routine) COMPARISON: Comparison is made with the prior examination dated 07/05/2023. TECHNIQUE: Transabdominal and endovaginal real-time 2D michelle-scale ultrasound was performed. Color Doppler was also performed. FINDINGS: Uterus: The uterus is normal in size, measuring 5.4 x 2.7 x 3.0 cm. Again seen are innumerable calcifications throughout the myometrium which likely represent fibroids. No discrete fibroids are identified, however. Endometrium: The endometrial stripe measures 2 mm in thickness. There is trace fluid in the endometrial cavity. Right ovary: The right ovary measures 2.2 x 1.5 x 1.3 cm. The right ovary is normal in size and echotexture. Left ovary: The left ovary measures 2.1 x 1.4 x 1.1 cm. The left ovary is normal in size and echotexture. Color Doppler analysis of the bilateral ovarian arteries and veins are normal. Pelvic fluid: none. US/US pelvic and transvaginal IMPRESSION: Innumerable myometrial calcifications likely representing small fibroids. The ovaries are unremarkable. Electronically signed by: Jose Swain MD 07/30/2024 07:12 AM EST Dictated By: Jose Swain MD Signed By: <Electronically signed by Jose Swain MD in OV> 07/30/24 0712 DD/ 1618 TD/TT: 07/29/24 1623 Thread Grinder: Assessment & Plan Assessment & Plan (1) PMB (postmenopausal bleeding): Code(s): N95.0 - Postmenopausal bleeding Category: Medical Plan: Ultrasound findings endometrial lining is 2 mm, advised to report any further vaginal bleeding would need a endometrial biopsy at that time. (2) Atypical squamous cells of undetermined significance (ASC-US) on cervical Pap smear: Code(s): R87.610 - Atypical squamous cells of undetermined significance on cytologic smear of cervix (ASC-US) Plan: Discuss: Ascus (3) Encounter to discuss test results: Code(s): Z71.2 - Person consulting for explanation of examination or test findings Plan Discussed: Ultrasound findings, IMPRESSION: Innumerable myometrial calcifications likely representing small fibroids. The ovaries are unremarkable. Pap smear findings-ascus, reviewed ASCUS, in the plan of care is to have a colposcopy. Appointment to be made with Dr. Nielsen appointment is 08/21/2024. Annual exam as scheduled. The patient expressed understanding and agreement with the plan of care. All of her questions and concerns were addressed to the best of my ability. This note is constructed using voice recognition software. While every effort has been made to ensure accuracy, goal umpire errors may have been included. Coding Level of Care Code Tele Est Pt Level 3 (31011) Diagnoses PMB (postmenopausal bleeding) N95.0 Atypical squamous cells of undetermined significance (ASC-US) on cervical Pap smear R87.610 Encounter to discuss test results Z71.2
--- OUTSIDE RECORDS SUMMARY | 2024-08-06 16:12 | XMS_ITS | Continuity of Care Document ---
Author Organization 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 Plan of Treatment Reminders Order Date Submit Date Provider Last Modified By Organization Details Last Modified Time Details Appointments FOLLOW UP 2024 03:30P M Rob Valencia MD Not available Not available Not available PE EST 2024 01:30P M Katt Lopez PA-C Not available Not available Not available Lab None recorded . Referral None recorded . Procedures None recorded . Surgeries None recorded . Imaging None recorded . Medication Orders omeprazo le 20 mg capsule, delayed release 2024 025 christina [id number], [address] [place], [address], 08/05/2024 16:29:15 predniso ne 20 mg tablet 2024 025 LATA [id number], [address] [place], [address], 08/04/2024 15:40:50 Patient TargetsNo targets recorded. Patient Instructions Encounter Date Encounter Id Patient Instructions Last Modified By Organization Details Last Modified Time 08/04/2024 [id number] healthy upper ba ck: exercises christina Not available 08/04/2024 15:40:47 gastroesophageal reflux disease (GERD): care instructions awkristin Not available 08/04/2024 15:40:47 costochondritis: care instructions awychowski Not available 08/04/2024 15:40:47 Reason for Referral None Reported. Results Created Date Observation Date Name Description Value Unit Range Abnormal Flag Note LastModifiedBy Organization Detail LastModifiedTime 07/30/1907/29/2024 imagi ng/que agnos tic resul t No observ ation record ed. [facility] (Medical Records) [address] [place], [address], 07/30/2024 07:17:17 Result Notes None recorded. Problems Name Problem SNOMED Code Status Onset Date Resolution Date Notes Provider Name and Address Organization Details Recorded Time Fibromyalgi a 702942581 Active 2021 Michaelle Wallace PA-C [address], [place], [address], [facility] 2 14:43:17 Moderate persistent asthma 139576023 Active 2021 Michaelle Wallace PA-C [address], [place], [address], [facility] 2 15:12:12 Family history of Thyroid disorder 693499792 Active 2021 Michaelle Wallace PA-C [address], [place], [address], [facility] 2 15:13:09 Multinodula r goiter 803647657 Active 2021 Michaelle Wallace PA-C [address], [place], [address], [facility] 2 09:03:54 Palpitation s 73443898 Active 2022 Michaelle Wallace PA-C [address], [place], [address], [facility] 3 11:23:20 Acute pharyngitis 110011146 Completed 202201/08/2023 Rudy Painting [place] null, [facility] 3 14:32:44 Fatigue 05951875 Active 2023 Katt Lopez [address], [place], [address], [facility] 4 13:30:16 Hyperlipide blanche 63372861 Active 2023 Katt Lopez [address], [place], [address], [facility] 4 13:30:34 Vitamin D deficiency 84030965 Active 2023 Katt Lopez [address], [place], [address], [facility] 4 15:06:17 Anemia 358913365 Active 2023 [facility] [address] [place] [address], [place], [address], [facility] 4 15:06:23 Impaired fasting glycemia 173316601 Active 2023 Katt Lopez [address], [place], [address], [facility] 4 15:07:04 Chronic low back pain 740995970 Active 2023 Katt Lopez [address], [place], [address], [facility] 4 15:12:19 Thoracic back pain 977547201 Active 2023 Katt Lopez [address], [place], [address], [facility] 4 15:12:27 Menopausal flushing 421875924 Active 2023 Katt Lopez [facility] [address] [facility] [address], [place], [address], [facility] 4 15:44:36 Problem Notes None recorded. Procedures Surgical History Date Name Laterality Status Provider Name and Address Organization Details Recorded Time 05/14/20 23 Most Recent Mammogram completed Benita Haq [facility] 06/05/2023 15:23:00 05/14/20 23 Mammogram both breasts completed Benita Haq [facility] 06/05/2023 15:22:53 04/20/20 Date of Last Pap Smear completed Lori Bustos [facility] 04/25/2022 09:48:29 04/17/20 [facility] 01/05/2022 14:16:08 06/30/19 Breast Surgery completed [facility] 01/05/2022 14:16:08 06/17/19 Tubal Ligation completed [facility] 01/05/2022 14:16:08 Imaging Results None recorded. Procedure Notes None recorded. Medical Equipment None [...] Available Not Available prednisone 20 mg tablet Take 1 tablet every day by oral route as directed for 5 days. 2024 active Not Available Not Available Not Avai lable terconazole 0.8 % vaginal cream 1 APPFUL VAGINALLY BEDTIME FOR 3 DAYS 01/13 completed Not Available Not Available Not Available lidocaine 5 % topical patch active Not Available Not Available Not Available omeprazole 20 mg capsule,del ayed release Take 1 capsule every day by oral route. 2024 active Not Available Not Available Not Avai lable albuterol sulfate HFA 90 mcg/actuati on aerosol inhaler INHALE 1 PUFF 4 TIMES DAILY FOR 30 DAYS NEEDED FOR SHORTNESS OF BREATH OR WHEEZING active Not Available Not Available No t Available fluticasone propionate 50 mcg/actuati on nasal spray,suspe nsion INSTILL 1 SPRAY INTO BOTH NOSTRILS DAILY active Not Available Not Available No t Available nitrofurant oin monohydrate /macrocryst als 100 mg capsule 01/05 completed Not Available Not Available Not Available Symbicort 160 mcg-4.5 mcg/actuati on HFA aerosol inhaler TAKE 2 PUFFS INHALED 2 TIMES A DAY active Not Available Not Available No t Available GaviLyte-G 236 gram-22.74 gram-6.74 gram-5.86 gram oral solution TAKE 8OZ BY MOUTH EVERY 10 MINUTES,U NTIL 4 LITERS ARE CONSUMED OR THE RECTAL EFFLUENT IS CLEAR 08/04 completed Not Available Not Available Not Available Breo Ellipta 200 mcg-25 mcg/dose powder for inhalation Inhale 2 puffs every day by inhalatio n route for 30 days. 01/13 completed Not Available Not Available Not Available EC-Naproxen 500 mg tablet,daniel yed release TAKE 1 TABLET BY MOUTH 2 TIMES A DAY NEEDED WITH FOOD 01/05 completed Not Available Not Available Not Available Vitals Date Recorded Body height Body mass index (BMI) Body weight Heart rate Oxygen saturation Oxygen saturation in Arterial blood by Pulse oximetry Body temperature Systolic blood pressure Diastolic blood pressure Provider Name and Address Organization Details Last Updated DateTime 5 165.74 cm 25.7 kg/m2 54094.9 2 g 71 /min 99 % 99 % 97.6 [degF] 127 mm[Hg] 73 mm[Hg] Stephanie Huynh MA MA [facility] 5 15:23:28 Social History Question Answer Notes LastModified by Organizat ion Details LastModified Time Tobacco Smoking Status Never Smoker MIREILLE Apodaca [facility] 01/05/2022 14:16:05 What Is Your Level Of [...] not available 01/05/2022 What Is Your Occupation? [employer] Information not available 01/14/2024 Do You Take [...] [email or web address] Not available 14:15:55 Father Diabetes mellitus [email or web address] Not available 14:15:55 Father Type 2 diabetes mellitus [email or web address] Not available 14:30:47 Mother Liver problem [email or web address] Not available 14:15:55 Mother Disorder of thyroid gland [email or web address] Not available 14:15:55 Mother Hyperlipidem ia [email or web address] Not available 14:31:11 Medical History Condition Response Fibromyalgia Y Asthma Y Gynecological History Statement/Question Response Menses Monthly N Date of Last Pap Smear 04/20/2022 Date of Last Colonoscopy Most Recent Mammogram 05/14/2023 Obstetrics History GPAL:G 0 P 0 0 0 0 Immunizations Vaccine Type Date Status Note Provider Nam e and Address Organization Details Recorded Time MMR [address] [facility] 01/05/2022 14:23:52 Tdap 7 completed MIREILLE [facility] 01/[facility]/2022 14:23:52 COVID-19, mRNA, LNP-S, PF, 30 mcg/0.3 mL dose 1 completed Stephanie Huynh MA [facility] 01/05/2022 14:23:52 Hep B, adult 9 completed MIREILLE Apodaca, [facility] 01/05/2022 14:23:52 COVID-19, mRNA, LNP-S, PF, 30 mcg/0.3 mL dose [address] [facility] 01/05/2022 14:23:52 Influenza, split virus, quadrivalent, PF 1 completed MIREILLE Apodaca, [facility] 01/05/2022 14:23:52 Influenza, split virus, quadrivalent, PF [address] [facility] 01/05/2022 14:23:52 COVID-19, mRNA, LNP-S, PF, 30 mcg/0.3 mL dose [address] [facility] 01/05/2022 14:23:52 Hep B, adult 9 completed MIREILLE Apodaca, [facility] 01/05/2022 14:23:52 Influenza, split virus, quadrivalent, preservative [address] [facility] 01/05/2022 14:23:52 Hep B, adult 9 completed MIREILLE Apodaca, [facility] 01/05/2022 14:23:52 Influenza, MDCK, quadrivalent, PF [address] [facility] 11/20/2022 14:16:38 COVID-19, mRNA, LNP-S, bivalent, PF, 30 mcg/0.3 mL dose [address] [facility] 11/20/2022 14:16:38 Influenza, MDCK, quadrivalent, PF 3 completed MIREILLE Apodaca, [facility] 08/04/2024 15:07:11 Influenza, split virus, trivalent, PF 4 completed MIREILLE Apodaca, [facility] 08/04/2024 15:07:11 Past Encounters Encounter ID Performer Location Encounter Start Date Encounter Closed Date Diagnosis/Indication Diagnosis SNOMED-CT Code Diagnosis ICD10 Code Diagnosis Note [id number] Rob Valencia MD Main Office [address] [facility] [place] [address] 08/04/2024 15:01:10 08/04/2024 15:45:27 Thoracic back pain 564424121 M54.6 Atypical for cardiac pain and type of symptoms along with exam findings raise concern for chest wall pain vs asthma/ple urisy vs GERD vs FMS. Consider imaging if no relief with below. Advised to call if symptoms change. Gastroesop hageal reflux disease 012308538 K21.9 Tried H2B but used inconsiste ntly, will see if PPI is more effective. Costal chondritis 745864 04 M94.0 See if prednisone helps with this or possible asthma etiology. Health Concerns Section Related Observation LastModified by Organization Detai ls LastModified Time None Recorded Concern Status LastModified by Organization Details LastModified Time None Recorded Payers Encounter Date Sequence Insurance Name Policy Number Policy Goodrich Covered Member ID Goodrich Member ID Guarantor Name 08/04/[address] [place] [address] ([facility]) [id number] 1 Sinanchrissie Rodriguez [id number] Pauly Rodriguez Notes Date Note Type Note Provider Name and Address Organization Details Recorded Time 08/04/2024 text/html 48y/o with FMS having left sided non exertional midline chest pain for a few days. Starts at sternum then radiates posteriorly L>R. Happening with supine positioning. Has history of asthma and GERD. Under a lot of stress since her mother's recent passing in hospice care. Rob Valencia MD [address], [place], [address], [facility] 08/05/2024 16:37:35 OBGyn Episode No OBEpisode recorded.
--- OUTSIDE RECORDS SUMMARY | 2024-08-06 16:12 | XMS_ITS | Data Portability ---
Author Organization [facility], Main Office Address [address] [place] [address] [place] [id number] Care Team Providers Care Media Technician Name Role Phone [facility] Terminologist [facility] Gynecologi st KATT LOPEZ Primary Care Provider Assessment No assessment recorded. Plan of Treatment Reminders Order Date Submit Date Provider Last Modified By Organization Details Last Modified Time Details Appointments FOLLOW UP 2024 03:30P M Rob Valencia MD Not available Not available Not available PE EST 2024 01:30P M Katt Lopez PA-C Not available Not available Not available Lab CBC w/ auto diff 2023 024 LATA [facility], [address] [facility], [address], [address], 01/18/2024 06:08:28 TSH + free T4, serum 2023 024 LATA [facility], [address] , [address], [address], 01/18/2024 06:08:28 CMP, serum or plasma 2023 024 LATA [facility], [address] [facility], [address], [address], 01/18/2024 06:08:29 lipid panel, serum 2023 024 LATA [facility], [address], [address], [address], 01/18/2024 06:08:30 vitami n B12 + folate , serum or blood 2023 024 [facility], [address] , [facility] [address], [place], [address], 01/18/2024 06:08:30 iron + TIBC + ferrit in, serum 2023 024 LATA [facility], [address], [address], [place], [address], 01/18/2024 06:08:27 HbA1c (hemog lobin A1c), blood 2023 024 [facility]ATA [facility], [address] , [facility] [address], [place], [address], 01/18/2024 06:08:31 vitami n D, 25-hyd bettie, total, serum 2023 024 LATA [facility], [address], [place], [address], 01/18/2024 06:08:31 lipid panel, serum 2022 023 L[facility], [address] [facility], [facility] [address], [place], [address], 01/08/2023 15:04:45 rapid flu (A+B) 2022 023 LATA In-Office Order, Internal Use Only DO Not Attach Compendium DO Not Attach Compendium, Do Not Delete/merge, [id number] 11/20/2022 15:02:36 strep group A, DNA, swab 2022 023 LATA In-Office Order, Internal Use Only DO Not Attach Compendium DO Not Attach Compendium, Do Not Delete/merge, [id number] 11/20/2022 14:52:17 Referral spine center referr al - upper and lower back pain, XR 2022 showed modera te degene rative change s. 2023 024 [facility], [address] [facility], [place], [address], 07/13/2024 09:13:02 spine center referr al - upper and lower back pain, XR 2022 showed modera te degene rative change s. 2023 024 [facility], [address] [place], [address], 07/13/2024 09:13:03 gastro entero logist referr al - Needs colon cancer screen ing [email or web address] [place] [address] Gastroenterol ogy, [address] [facility], [address], [place], [address], 02/13/2024 14:50:21 gyneco logist referr al 2022 023 LATA Not available 06/12/2023 15:07:32 physic al therap ist referr al - lumbar and right hip 2022 023 [email or web address] Not available 07/17/2023 13:05:27 Procedures cerume n remova l (PROC) 2022 023 LATA In-Office Order, Internal Use Only DO Not Attach Compendium DO Not Attach Compendium, Do Not Delete/merge, [id number] 01/08/2023 16:42:22 Surgeries None record ed. Imaging MAMMO, screen ing, bilate ral 2022 023 LATA Not available 06/05/2023 15:07:59 XR, lumbos acral spine, 2 or 3 view 2022 023 [email or web address] Not available 01/14/2023 15:19:17 XR, hip, unilat eral, 2 or 3 view 2022 023 LATA Not available 12/31/2022 11:22:05 Medication Orders omepra zole 20 mg capsul e,daniel yed releas e 2024 025 christina [facility]armacy #[id number], [address] [place], [address], 08/05/2024 16:29:15 predni sone 20 mg tablet 2024 025 LATA [facility] #1291, [address] [place], [address], 08/04/2024 15:40:50 predni sone 20 mg tablet 2022 023 [facility]/Pharmacy #1291, [address] [place], [address], 08/04/2024 15:14:31 predni sone 20 mg tablet 2022 023 [facility]/Pharm[facility] #1291, [address] [place], [address], 08/04/2024 15:14:31 Patient TargetsNo targets recorded. Patient Instructions Encounter Date Encounter Id Patient Instructions Last Modified By Organization Details Last Modified Time 11/20/2022 [id number] To call or retur n for worsening or concerns [email or web address] Not available 11/20/2022 14:32:56 01/14/2024 [id number] low back pain: exercises jthabet Not available 01/14/2024 15:20:18 back care and preventing injuries: care instructions [email or web address] Not available 01/14/2024 15:20:18 fibromyalgia: ca re instructions jthabet Not available 01/14/2024 15:20:19 asthma in adults : care instructions [email or web address] Not available 01/14/2024 15:20:19 learning about c olon cancer jthabet Not available 01/14/2024 15:08:01 To call or retur n for worsening or concerns jthabet Not available 01/14/2024 13:30:42 08/04/2024 [id number] healthy upper ba ck: exercises [email or web address] Not available 08/04/2024 15:40:47 gastroesophageal reflux disease (GERD): care instructions [email or web address] Not available 08/04/2024 15:40:47 costochondritis: care instructions christina Not available 08/04/2024 15:40:47 Reason for Referral Physical Therapist Referral for Pain in right hip joint lumbar and right hip Referring Physician: Lubna Cano, [facility], Encounter Date: 12/31/2022 Training Program Developer Referral for Sc reening for malignant neoplasm of cervix Referring Physician: Michaelle Wallace, Internal Medicine, Encounter Date: 01/08/2023 Repairer Shoe Sticks Referral for Screening for malignant neoplasm of colon Needs colon cancer screening Referring Physician: Katt Lopez [facility], Encounter Date: 01/14/2024 Spine Center Referral for Ch ronic low back pain upper and lower back pain, XR 2022 showed moderate degenerative changes. Referring Physician: Katt Lopez [facility], Encounter Date: 01/14/2024 Spine Center Referral for Th oracic back pain upper and lower back pain, XR 2022 showed moderate degenerative changes. Referring Physician: Katt Lopez [facility], Encounter Date: 01/14/2024 Results Created Date Observation Date Name Description Value Unit Range Abnormal Flag Note LastModifiedBy Organization Detail LastModifiedTime 11/21/1911/20/2022 rapid flu (A+B) Flu A negati ve Not Available In-Office Order Internal Use Only DO Not Attach Compendium DO Not Attach Compendium, Do Not Delete/merge, [id number] 11/20/2022 14:32:23 11/21/1911/20/2022 rapid flu (A+B) Flu B negati ve Not Available In-Office Order Internal Use Only DO Not Attach Compendium DO Not Attach Compendium, Do Not Delete/merge, [id number] 11/20/2022 14:32:23 11/21/1911/20/2022 strep group A, DNA, swab ID NOW Strep A 2 (rapid molecular test) negati ve Not Available In-Office Order Internal Use Only DO Not Attach Compendium DO Not Attach Compendium, Do Not Delete/merge, [id number] 11/20/2022 14:32:27 01/09/2001/08/2023 cerum en remov al (PROC ) done by Bolivar lee Not Available In-Office Order Internal Use Only DO Not Attach Compendium DO Not Attach Compendium, Do Not Delete/merge, [id number] 01/08/2023 15:05:19 01/17/20 24 01/18/2024 FE+TI BC+FE R iron bind.cap.(TI BC) 303 ug/dL 250-45 0 normal Not Available [facility] ([facility]) [address] [place], [address], 01/18/2024 06:08:27 01/17/20 24 01/18/2024 FE+TI BC+FE R UIBC 234 ug/dL 131-42 5 normal Not Available [facility] ([facility]) [address] [place], [address], 01/18/2024 06:08:27 01/17/20 24 01/18/2024 FE+TI BC+FE R iron 69 ug/dL 27-159 normal Not Available [facility] ([facility]) [address] [place], [address], 01/18/2024 06:08:27 01/17/20 24 01/18/2024 FE+TI BC+FE R iron saturation 23 % 15-55 normal Not Available [facility] ([facility]) [address] [place], [address], 01/18/2024 06:08:27 01/17/20 24 01/18/2024 FE+TI BC+FE R ferritin 134 NG/mL 15-150 normal Not Available [facility] ([facility]) [address] [place], [address], 01/18/2024 06:08:27 01/17/20 24 01/17/2024 TSH+F REE T4 TSH 2.100 uIU/m L 0.450- 4.500 normal Not Available [facility] ([facility]) [address] [place], [address], 01/18/2024 06:08:28 01/17/20 24 01/17/2024 TSH+F REE T4 T4,free(dire ct) 0.83 NG/dL 0.82-1 .77 normal Not Available [facility] ([facility]) [address] [place], [address], 01/18/2024 06:08:28 01/17/20 24 01/18/2024 CBC WITH DIFFE RENTI AL/PL ATELE T WBC 7.0 x10e3 /uL 3.4-10 .8 normal Not Available [facility] ([facility]) [address] [place], [address], 01/18/2024 06:08:28 01/17/20 24 01/18/2024 CBC WITH DIFFE RENTI AL/PL ATELE T RBC 4.68 x10e6 /uL 3.77-5 .28 normal Not Available [facility] ([facility]) [address] [place], [address], 01/18/2024 06:08:28 01/17/20 24 01/18/2024 CBC WITH DIFFE RENTI AL/PL ATELE T hemoglobin 13.8 g/dL 11.1-1 5.9 normal Not Available [facility] ([facility]) [address] [place], [address], 01/18/2024 06:08:28 01/17/20 24 01/18/2024 CBC WITH DIFFE RENTI AL/PL ATELE T hematocrit 43.3 % 34.0-4 6.6 normal Not Available [facility] ([facility]) [address] [place], [address], 01/18/2024 06:08:28 01/17/20 24 01/18/2024 CBC WITH DIFFE RENTI AL/PL ATELE T MCV 93 fL 79-97 normal Not Available [facility] ([facility]) [address] [place], [address], 01/18/2024 06:08:28 01/17/20 24 01/18/2024 CBC WITH DIFFE RENTI AL/PL ATELE T MCH 29.5 pg 26.6-3 3.0 normal Not Available [facility] ([facility]) [address] [place], [address], 01/18/2024 06:08:28 01/17/20 24 01/18/2024 CBC WITH DIFFE RENTI AL/PL ATELE T MCHC 31.9 g/dL 31.5-3 5.7 normal Not Available [facility] ([facility]) [address] [place], [address], 01/18/2024 06:08:28 01/17/20 24 01/18/2024 CBC WITH DIFFE RENTI AL/PL ATELE T RDW 12.7 % 11.7-1 5.4 Not Available [facility] ([facility]) [address] [place], [address], 01/18/2024 06:08:28 01/17/20 24 01/18/2024 CBC WITH DIFFE RENTI AL/PL ATELE T platelets 268 x10e3 /uL 150-45 0 normal Not Available [facility] ([facility]) [address] [place], [address], 01/18/2024 06:08:28 01/17/20 24 01/18/2024 CBC WITH DIFFE RENTI AL/PL ATELE T neutrophils 51 % not estab. normal Not Available [facility] ([facility]) [address] [place], [address], 01/18/2024 06:08:28 01/17/20 24 01/18/2024 CBC WITH DIFFE RENTI AL/PL ATELE T lymphs 38 % not estab. normal Not Available [facility] ([facility]) [address] [place], [address], 01/18/2024 06:08:28 01/17/20 24 01/18/2024 CBC WITH DIFFE RENTI AL/PL ATELE T monocytes 7 % not estab. normal Not Available [facility] ([facility]) [address] [facility], [place], [address], 01/18/2024 06:08:28 01/17/20 24 01/18/2024 CBC WITH DIFFE RENTI AL/PL ATELE T eos 3 % not estab. normal Not Available [facility] ([facility]) [address] [facility], [place], [address], 01/18/2024 06:08:28 01/17/20 24 01/18/2024 CBC WITH DIFFE RENTI AL/PL ATELE T basos 1 % not estab. normal Not Available [facility] ([facility]) [address] [place], [address], 01/18/2024 06:08:28 01/17/20 24 01/18/2024 CBC WITH DIFFE RENTI AL/PL ATELE T immature cells PRACTICE BUSINESS ASST Not Available [facility] ([facility]) [address] [place], [address], 01/18/2024 06:08:28 01/17/20 24 01/18/2024 CBC WITH DIFFE RENTI AL/PL ATELE T neutrophils (absolute) 3.6 x10e3 /uL 1.4-7. 0 normal Not Available [facility] ([facility]) [address] [facility], [place], [address], 01/18/2024 06:08:28 01/17/20 24 01/18/2024 CBC WITH DIFFE RENTI AL/PL ATELE T lymphs (absolute) 2.7 x10e3 /uL 0.7-3. 1 normal Not Available [facility] ([facility]) [address] [place], [address], 01/18/2024 06:08:28 01/17/20 24 01/18/2024 CBC WITH DIFFE RENTI AL/PL ATELE T monocytes(ab solute) 0.5 x10e3 /uL 0.1-0. 9 normal Not Available [facility] ([facility]) [address] [facility], [place], [address], 01/18/2024 06:08:28 01/17/20 24 01/18/2024 CBC WITH DIFFE RENTI AL/PL ATELE T eos (absolute) 0.2 x10e3 /uL 0.0-0. 4 normal Not Available [facility] ([facility]) [address] [facility], [place], [address], 01/18/2024 06:08:28 01/17/20 24 01/18/2024 CBC WITH DIFFE RENTI AL/PL ATELE T baso (absolute) 0.1 x10e3 /uL 0.0-0. 2 normal Not Available [facility] ([facility]) [address] [facility], [place], [address], 01/18/2024 06:08:28 01/17/20 24 01/18/2024 CBC WITH DIFFE RENTI AL/PL ATELE T immature granulocytes 0 % not estab. Not Available [facility] ([facility]) [address] [facility], [place], [address], 01/18/2024 06:08:28 01/17/20 24 01/18/2024 CBC WITH DIFFE RENTI AL/PL ATELE T immature grans (abs) 0.0 x10e3 /uL 0.0-0. 1 Not Available [facility] ([facility]) [address] [place], [address], 01/18/2024 06:08:28 01/17/20 24 01/18/2024 CBC WITH DIFFE RENTI AL/PL ATELE T NRBC PRACTICE BUSINESS ASST Not Available [facility] ([facility]) [address] [place], [address], 01/18/2024 06:08:28 01/17/20 24 01/18/2024 CBC WITH DIFFE RENTI AL/PL KIZZY T hematology comments: PRACTICE BUSINESS ASST Not Available [facility] ([facility]) [address] [facility], [place], [address], 01/18/2024 06:08:28 01/17/20 24 01/17/2024 COMP. METAB OLIC PANEL (14) glucose 94 mg/dL 70-99 normal Not Available [facility] ([facility]) [address] [facility], [place], [address], 01/18/2024 06:08:29 01/17/20 24 01/17/2024 COMP. METAB OLIC PANEL (14) BUN 12 mg/dL 6-24 normal Not Available [facility] ([facility]) [address] [facility], [place], [address], 01/18/2024 06:08:29 01/17/20 24 01/17/2024 COMP. METAB OLIC PANEL (14) creatinine 0.89 mg/dL 0.57-1 .00 normal Not Available [facility] ([facility]) [address] [facility], [place], [address], 01/18/2024 06:08:29 01/17/20 24 01/17/2024 COMP. METAB OLIC PANEL (14) eGFR 79 mL/mi n/1.7 3 >59 normal Not Available [facility] ([facility]) [address] [facility], [place], [address], 01/18/2024 06:08:29 01/17/20 24 01/17/2024 COMP. METAB OLIC PANEL (14) BUN/creatini ne ratio 13 9-23 normal Not Available [facility] ([facility]) [address] [facility], [place], [address], 01/18/2024 06:08:29 01/17/20 24 01/17/2024 COMP. METAB OLIC PANEL (14) sodium 142 mmol/ L 134-14 4 normal Not Available [facility] ([facility]) [address] [facility] [place], [address], 01/18/2024 06:08:29 01/17/20 24 01/17/2024 COMP. METAB OLIC PANEL (14) potassium 4.2 mmol/ L 3.5-5. 2 normal Not Available [facility] ([facility]) [address] [facility] [place], [address], 01/18/2024 06:08:29 01/17/20 24 01/17/2024 COMP. METAB OLIC PANEL (14) chloride 107 mmol/ L 96-106 above high normal Not Available [facility] ([facility]) [address] [facility] [place], [address], 01/18/2024 06:08:29 01/17/20 24 01/17/2024 COMP. METAB OLIC PANEL (14) carbon dioxide, total 21 mmol/ L 20-29 normal Not Available [facility] ([facility]) [address] [facility] [place], [address], 01/18/2024 06:08:29 01/17/20 24 01/17/2024 COMP. METAB OLIC PANEL (14) calcium 9.3 mg/dL 8.7-10 .2 normal Not Available [facility] ([facility]) [address] [facility] [place], [address], 01/18/2024 06:08:29 01/17/20 24 01/17/2024 COMP. METAB OLIC PANEL (14) protein, total 7.7 g/dL 6.0-8. 5 normal Not Available [facility] ([facility]) [address] [facility] [place], [address], 01/18/2024 06:08:29 01/17/20 24 01/17/2024 COMP. METAB OLIC PANEL (14) albumin 4.4 g/dL 3.9-4. 9 normal Not Available [facility] ([facility]) [address] [place], [address], 01/18/2024 06:08:29 01/17/20 24 01/17/2024 COMP. METAB OLIC PANEL (14) globulin, total 3.3 g/dL 1.5-4. 5 Not Available [facility] ([facility]) [address] [place], [address], 01/18/2024 06:08:29 01/17/20 24 01/17/2024 COMP. METAB OLIC PANEL (14) bilirubin, total 0.3 mg/dL 0.0-1. 2 normal Not Available [facility] ([facility]) [address] [facility] [place], [address], 01/18/2024 06:08:29 01/17/20 24 01/17/2024 COMP. METAB OLIC PANEL (14) alkaline phosphatase 117 IU/L 44-121 normal Not Available [facility]) [address] [place], [address], 01/18/2024 06:08:29 01/17/20 24 01/17/2024 COMP. METAB OLIC PANEL (14) AST (SGOT) 23 IU/L 0-40 normal Not Available [facility] ([facility]) [address] [facility] [place], [address], 01/18/2024 06:08:29 01/17/20 24 01/17/2024 COMP. METAB OLIC PANEL (14) ALT (SGPT) 32 IU/L 0-32 normal Not Available [facility] ([facility]) [address] [facility] [place], [address], 01/18/2024 06:08:29 01/17/20 24 01/17/2024 LIPID PANEL cholesterol, total 186 mg/dL 100-19 9 normal Not Available [facility] ([facility]) [address] [facility] [place], [address], 01/18/2024 06:08:30 01/17/20 24 01/17/2024 LIPID PANEL triglyceride s 132 mg/dL 0-149 normal Not Available [facility] ([facility]) [address] [facility] [place], [address], 01/18/2024 06:08:30 01/17/20 24 01/17/2024 LIPID PANEL HDL cholesterol 48 mg/dL >39 normal Not Available [facility]) [address] [facility] [place], [address], 01/18/2024 06:08:30 01/17/20 24 01/17/2024 LIPID PANEL VLDL cholesterol elliott 24 mg/dL 5-40 Not Available [facility] ([facility]) [address] [place], [address], 01/18/2024 06:08:30 01/17/20 24 01/17/2024 LIPID PANEL LDL chol calc ([facility]) 114 mg/dL 0-99 above high normal Not Available [facility] ([facility]) [address] [facility] [place], [address], 01/18/2024 06:08:30 01/17/20 24 01/17/2024 LIPID PANEL LDL calc comment: PRACTICE BUSINESS ASST Not Available [facility] ([facility]) [address] [place], [address], 01/18/2024 06:08:30 01/17/20 24 01/18/2024 VITAM IN B12 AND FOLAT E vitamin B12 800 pg/mL 232-12 45 normal Not Available [facility] ([facility]) [address] [place], [address], 01/18/2024 06:08:30 01/17/20 24 01/18/2024 VITAM IN B12 AND FOLAT E folate (folic acid), serum 15.0 NG/mL >3.0 normal A serum folat e zachary ntrat ion of less than 3.1 ng/mL is consi dered to repre sent clini elliott defic iency . Not Available [facility] ([facility]) [address] [facility], [place], [address], 01/18/2024 06:08:30 01/17/20 24 01/18/2024 HEMOG LOBIN A1C hemoglobin A1C 5.6 % 4.8-5. 6 normal Predi abete s: 5.7 - 6.4 Diabe shan: >6.4 Glyce manuel contr ol for adult s with diabe shan: <7.0 Not Available [facility] ([facility]) [address] [facility], [place], [address], 01/18/2024 06:08:31 01/17/20 24 01/18/2024 VITAM IN [...] 1. IOM (Inst itute of Medic ine). 2010. Dieta ry refer ence maynor es for calci um and D. Uzma arzate [place]: The [facility] Press . 2. Delilah noel MF, Jonah myrick [place], Tawanna off-F errar i PERRY, et al. Evalu ation , treat ment, and preve ntion of vitam in D defic iency : an Endoc rine Socie ty clini elliott pract ice guide line. JCEM. 2010; 96(7) :1911 -30. Not Available [facility] ([facility]) [address] [facility], [place], [address], 01/18/2024 06:08:31 01/01/20 23 12/31/2022 XR, hip, unila teral , 2 or 3 view Hip Comp 2 Views Right Reason : pain in right hip; COMPAR DOT: None. FINDIN GS: No fractu re or disloc ation. Well preser nilda joint space. Normal femora l head contou r withou t eviden ce of avascu lar necros is. Normal soft tissue s. IMPRES RAUDEL: Normal . WSN: [id number] Orderi ng Physic erin: Paul Eric Dictat ed By: Mariam Sullivan MD Dictat ed Date/T jesu: 11:18 a Review ed By: Peg roland MD, Mariam gardner Signed By: Peg roland MD, Mariam gardner Signed Date/T jesu: 11:18 am Transc ribed By: JACK Transc ribed Date/T jesu: 11:18 am Patien t Class: Outpat [facility] (Outpt Imaging) [address] [place], [address], 01/01/2023 08:02:33 01/01/2012/31/2022 XR, lumbo sacra l [...] ng. 2. Mild stool retent ion. WSN: [id number] Orderi ng Physic erin: Paul Eric Dictat ed By: Peg roland MD, Mariam gardner Dictat ed Date/T jesu: 11:23 a Review ed By: Peg roland MD, Mariam gardner Signed By: Peg roland MD, Mariam gardner Signed Date/T jesu: 11:23 am Transc ribed By: CSB Transc ribed Date/T jesu: 11:20 am Patien t Class: Outpat ient [facility] (Outpt Imaging) [address], [place], [address], 01/14/2023 15:19:17 06/05/20 23 05/14/2023 MAMMO , scree jake, bilat eral No observ ation record ed. [email or web address] [address] [place], [address], 06/05/2023 15:23:06 06/12/20 23 06/12/2023 XR, hand No observ ation record ed. [email or web address] [facility] (Medical Records) [address] [place] [address], [address], 01/03/2024 15:44:16 07/09/19 24 07/05/2023 US, pelvi c wall No observ ation record ed. [address] (Medical Records) [address] [place], [address], 07/09/2023 10:17:40 07/11/19 24 07/10/2023 biops y thyro id, percu taneo us core needl e (PROC ) No observ ation record ed. [address] (Medical Records) [address] [place], [address], 07/11/2023 19:41:10 05/26/20 24 05/19/2024 MAMMO , scree jake, bilat eral No observ ation record ed. [email or web address] [address] [place], [address], 05/26/2024 08:54:37 07/30/19 25 07/29/2024 imagi ng/di agnos tic resul t No observ ation record ed. [facility] (Medical Records) [address] [facility], [place], [address], 07/30/2024 07:17:17 Result Notes None recorded. Problems Name Problem SNOMED Code Status Onset Date Resolution Date Notes Provider Name and Address Organization Details Recorded Time Fibromyalgi a 135021411 Active 2021 Michaelle Wallace PA-C [address], [place], [address], [facility] 14:43:17 Moderate persistent asthma 165105965 Active 2021 Michaelle Wallace PA-C [address], [place], [address], [facility] 15:12:12 Family history of Thyroid disorder 906625579 Active 2021 Michaelle Wallace PA-C [address], [place], [address], [facility] 15:13:09 Multinodula r goiter 562462565 Active 2021 Michaelle Wallace PA-C [address], [place], [address], [facility] 09:03:54 Palpitation s 74657618 Active 2022 Michaelle Wallace PA-C [address], [place], [address], [facility] 11:23:20 Acute pharyngitis 480846103 Completed 202201/08/2023 Rudy Painting MA [facility] 3 14:32:44 Fatigue 39337972 Active 2023 MATTY Beebe [address] [facility] [address], [place], [address], [facility] [place] [facility] 13:30:16 Hyperlipide blanche 33767954 Active 2023 MATTY Beebe [address] [address], [place], [address], [facility] [place] 13:30:34 Vitamin D deficiency 86118851 Active 2023 MATTY Beebe [address] [address], [place], [address], [facility] [place] 15:06:17 Anemia 825634302 Active 2023 MATTY Beebe [address] [address], [place], [address], [facility] [place] 15:06:23 Impaired fasting glycemia 952385153 Active 2023 MATTY Beebe [address] [address], [place], [address], [facility] [place] 15:07:04 Chronic low back pain 163214771 Active 2023 MATTY Beebe [address] [address], [place], [address], [facility] [place] 15:12:19 Thoracic back pain 221746116 Active 2023 MATTY Beebe [address] [address], [place], [address], [facility] [place] 15:12:27 Menopausal flushing 536064928 Active 2023 MATTY Beebe [address] [address], [place], [address], [facility] [place] 15:44:36 Problem Notes None recorded. Procedures Surgical History Date Name Laterality Status Provider Name and Address Organization Details Recorded Time 05/14/20 Most Recent Mammogram completed Benita Haq [facility] 06/05/2023 15:23:00 05/14/20 23 Mammogram both breasts completed Benitahelena Haq [facility] 06/05/2023 15:22:53 04/20/20 22 Date of Last Pap Smear completed Lori Akash [facility] 04/25/2022 09:48:29 04/17/20 Endometrial Ablation completed Stephanie Huynh MA [facility] 01/05/2022 14:16:08 06/30/19 Breast Surgery completed Stephanie Huynh MA [facility] 01/05/2022 14:16:08 06/17/19 Tubal Ligation completed Stephaniezayra Huynh MA [facility] 01/05/2022 14:16:08 Imaging Results Imaging Date Name Status LastModified by Organization Details LastModified Time 12/31/2022 XR, hip, unilateral, 2 or 3 view completed [facility] (Outpt Imaging) [address] [place], [address], 01/01/2023 08:02:33 12/31/2022 XR, lumbosacral spine, 2 or 3 view completed [facility] (Outpt Imaging) [address] [place], [address], 01/14/2023 15:19:17 05/14/2023 MAMMO, screening, bilateral completed [email or web address] [facility] [place], [address], 06/05/2023 15:23:06 06/12/2023 XR, hand completed [email or web address] [facility] (Medical Records) [address] [place], [address], 01/03/2024 15:44:16 07/05/2023 US, pelvic wall completed [email or web address] [facility] (Medical Records) [address] [place], [address], 07/09/2023 10:17:40 07/10/2023 biopsy thyroid, percutaneous core needle (PROC) completed [email or web address] [facility] (Medical Records) [address] [place], [address], 07/11/2023 19:41:10 05/19/2024 MAMMO, screening, bilateral completed [facility] [address] [place] [address] [place], [address], 05/26/2024 08:54:37 07/29/2024 imaging/diagnost ic result active [facility] (Medical Records) [address] [place], [address], 07/30/2024 07:17:17 Procedure Notes None recorded. Medical Equipment None [...] Updated DateTime 3 165.74 cm 25.1 kg/m2 31442.4 4 g 82 /min 95 % 95 % 97.9 [degF] 117 mm[Hg] 78 mm[Hg] Ruma Mcnamara MA [facility] 3 14:22:10 Date Recorded Body height Body mass index (BMI) Body weight Oxygen saturation Oxygen saturation in Arterial blood by Pulse oximetry Heart rate Body temperature Systolic blood pressure Diastolic blood pressure Provider Name and Address Organization Details Last Updated DateTime 3 165.74 cm 25.4 kg/m2 50160.9 2 g 97 % 97 % 79 /min 98 [degF] 113 mm[Hg] 79 mm[Hg] Pam Rodgers [facility] 3 10:07:22 Date Recorded Body height Body mass index (BMI) Body weight Heart rate Oxygen saturation Oxygen saturation in Arterial blood by Pulse oximetry Body temperature Systolic blood pressure Diastolic blood pressure Provider Name and Address Organization Details Last Updated DateTime 3 165.74 cm 24.9 kg/m2 45142.4 5 g 75 /min 98 % 98 % 98 [degF] 108 mm[Hg] 68 mm[Hg] Rudy Painting MA [facility] 3 14:32:56 Date Recorded Body height Body mass index (BMI) Body weight Heart rate Oxygen saturation Oxygen saturation in Arterial blood by Pulse oximetry Body temperature Systolic blood pressure Diastolic blood pressure Provider Name and Address Organization Details Last Updated DateTime 4 165.74 cm 25.6 kg/m2 72156.8 2 g 77 /min 98 % 98 % 97.6 [degF] 97 mm[Hg] 64 mm[Hg] Laurence hart MA [facility] 4 14:47:35 Date Recorded Body height Body mass index (BMI) Body weight Heart rate Oxygen saturation Oxygen saturation in Arterial blood by Pulse oximetry Body temperature Systolic blood pressure Diastolic blood pressure Provider Name and Address Organization Details Last Updated DateTime 5 165.74 cm 25.7 kg/m2 76786.9 2 g 71 /min 99 % 99 % 97.6 [degF] 127 mm[Hg] 73 mm[Hg] Stephanie Huynh MA [facility] 5 15:23:28 Social History Question Answer Notes LastModified by Organizat ion Details LastModified Time Tobacco Smoking Status Never Smoker Stephanie Huynh MA [facility] 01/05/2022 14:16:05 What Is Your Level [...] not available 01/05/2022 What Is Your Occupation? [employer] Information not available 01/14/2024 Do You Take [...] Time Maternal Grandmother Malignant tumor of colon [email or web address] Not available 14:15:55 Maternal Grandmother Diabetes mellitus [email or web address] Not available 14:15:55 Father Diabetes mellitus [email or web address] Not available 14:15:55 Father Type 2 diabetes mellitus [email or web address] Not available 14:30:47 Mother Liver problem [email or web address] Not available 14:15:55 Mother Disorder of thyroid gland [email or web address] Not available 14:15:55 Mother Hyperlipidem ia kcjean paulmontone Not available 14:31:11 Medical History Condition Response Fibromyalgia Y Asthma Y Gynecological History Statement/Question Response Menses Monthly N Date of Last Pap Smear 04/20/2022 Date of Last Colonoscopy Most Recent Mammogram 05/14/2023 Obstetrics History GPAL:G 0 P 0 0 0 0 Immunizations Vaccine Type Date Status Note Provider Nam e and Address Organization Details Recorded Time MMR 9 completed MIREILLE Apodaca [facility] 01/05/2022 14:23:52 Tdap 7 completed MIREILLE Apodaca [facility] 01/05/2022 14:23:52 COVID-19, mRNA, LNP-S, PF, 30 mcg/0.3 mL dose 1 completed MIREILLE Apodaca [facility] 01/05/2022 14:23:52 Hep B, adult 9 completed MIREILLE Apodaca [facility] 01/05/2022 14:23:52 COVID-19, mRNA, LNP-S, PF, 30 mcg/0.3 mL dose 1 completed MIREILLE Apodaca [facility] 01/05/2022 14:23:52 Influenza, split virus, quadrivalent, PF 1 completed MIREILLE Apodaca [facility] 01/05/2022 14:23:52 Influenza, split virus, quadrivalent, PF 9 completed MIREILLE [facility]odaca [facility] 01/05/2022 14:23:52 COVID-19, mRNA, LNP-S, PF, 30 mcg/0.3 mL dose 1 completed MIREILLE Apodaca [facility] 01/05/2022 14:23:52 Hep B, adult 9 completed MIREILLE Apodaca [facility] 01/05/2022 14:23:52 Influenza, split virus, quadrivalent, preservative 0 completed MIREILLE Apodaca [facility] 01/05/2022 14:23:52 Hep B, adult 9 completed MIREILLE Apodaca [facility] 01/05/2022 14:23:52 Influenza, MDCK, quadrivalent, PF 2 completed MIREILLE Al[facility] 11/20/2022 14:16:38 COVID-19, mRNA, LNP-S, bivalent, PF, 30 mcg/0.3 mL dose 2 completed MIREILLE Alba [facility] 11/20/2022 14:16:38 Influenza, MDCK, quadrivalent, PF 3 completed MIREILLE Apodaca [facility] 08/04/2024 15:07:11 Influenza, split virus, trivalent, PF 4 completed MIREILLE Apodaca [facility] 08/04/2024 15:07:11 Past Encounters Encounter ID Performer Location Encounter Start Date Encounter Closed Date Diagnosis/Indication Diagnosis SNOMED-CT Code Diagnosis ICD10 Code Diagnosis Note [id number] Michaelle Wallace PA-C Main Office [address] [facility] [address] [place] [address] 01/05/2022 14:03:27 01/05/2022 15:06:08 Adult health examination 139521036 Z00.00 recommend second COVID booster Fibromyalgia 713113687 M 77.7 f/u with rheumatolo gist Screening for malignant neoplasm of cervix 843541365 Z12.4 Screening for malignant neoplasm of breast 311199150 Z12.39 Screening for malignant neoplasm of colon 837438359 Z12.11 Hyperlipidemia 23932757 E78.5 Vitamin D deficiency 347 42920 E55.9 Thyroid nodule 318063987 E04.1 Single R. lobe nodule. Schedule ultrasound and labs. Moderate p ersistent asthma 768633188 J45.40 f/u with pulmonary. [id number] Michaelle Wallace PA-C Main Office [address] [address] [place] [address] 09/11/2022 10:49:03 09/11/2022 11:28:59 Palpitations 64104317 R00.2 check thyroid labs and bmp. Schedule echo cardiogram and refer to cardiology for an event monitor. PT. was advised to avoid excessive physical activity or caffeine. [id number] MATTY Beebe Main Office [address] [address] [place] [address] 11/20/2022 14:05:57 11/20/2022 14:54:55 Fever 633749859 R50.9 flu negative A/B, likely viral illness, hydration, rest mucinex as needed, may start prednisone burst. Acute pharyngitis 207766 003 J02.9 strep negative. Moderate p ersistent asthma 168143851 J45.40 using her inhalers and neb but coughing persists. start prednisone burst, hydration, rest, continue mucinex as needed. Continue inhalers/ nebs as needed. If sx persist or worsen please call/ return. [id number] LUBNA CANO MD Main Office [address] [facility] [address] [place] [address] 12/31/2022 09:45:08 12/31/2022 10:23:46 Acute low back pain 044495754 M54.50 - pain located near the right [...] improvemen t -> to consider MRI and family support specialist Pain in ri ght hip joint 0468512754 73023 M25.551 - pt believes pain is coming from the hip but after history and exam believe is more likely coming from lumbar spine- for patient re-assuran ce ordered X-ray of the right hip for further evaluation [id number] Michaelle Wallace PA-C Main Office [address] [facility] [address] [place] [address] 01/08/2023 14:10:26 01/08/2023 15:30:12 Adult health examination 006112025 Z00.00 vaccines are up to date. Moderate p ersistent asthma 369899911 J45.40 f/u with pulmonary. Multinodular goiter 2375 45863 E04.2 f/u with endo yearly. Fibromyalgia 789149617 M 77.7 f/u with rheumatolo gist Screening for malignant neoplasm of breast 592971368 Z12.39 Screening for malignant neoplasm of cervix 772703335 Z12.4 Hyperlipidemia 55117681 E78.5 Impacted c erumen in right ear 2453734232 116843 H61.21 [id number] MATTY Beebe Main Office [address] [facility] [address] [place] [address] 01/14/2024 14:31:36 01/14/2024 15:24:24 Multinodular goiter 379627445 E04.2 sees endocrinol ogy yearly Moderate p ersistent asthma 910012052 J45.40 Fibromyalgia 411077572 M 77.7 Adult heal th examination 890761360 Z00.00 Mammo and pap UTD, april and may, needs colonoscop y will refer. pulm May 13. Fatigue 45118609 R53.83 Hyperlipidemia 94766749 E78.5 Vitamin D deficiency 347 58094 E55.9 Anemia 098799040 D64.9 Impaired f asting glycemia 789046737 R73.01 Screening for malignant neoplasm of colon 678121553 Z12.11 due for screening will refer. Chronic low back pain 27 7462552 M54.50 will refer to [facility] for further eval. Thoracic back pain 96304 8004 M54.6 Menopausal flushing 1984 25754 N95.1 does not want hormone therapy, has tried OTC remedies. [id number] Rob Valencia MD Main Office [address] [place] [address] 08/04/2024 15:01:10 08/04/2024 15:45:27 Thoracic back pain 830181547 M54.6 Atypical for cardiac pain and type of symptoms along with exam findings raise concern for chest wall pain vs asthma/ple urisy vs GERD vs FMS. Consider imaging if no relief with below. Advised to call if symptoms change. Gastroesop hageal reflux disease 607872059 K21.9 Tried H2B but used inconsiste ntly, will see if PPI is more effective. Costal chondritis 488492 04 M94.0 See if prednisone helps with this or possible asthma etiology. Health Concerns Section Related Observation LastModified by Organization Detai ls LastModified Time None Recorded Concern Status LastModified by Organization Details LastModified Time None Recorded Advance Directives Directive None Recorded Payers Encounter Date Sequence Insurance Name Policy Number Policy Goodrich Covered Member ID Goodrich Member ID Guarantor Name 11/20/2022 1 [facility] [id number] Pauly Rodriguez [id number] Pauly Rodriguez 12/31/2022 1 [facility] [id number] Pauly Rodriguez [id number] Pauly Rodriguez 01/08/2023 1 [facility] [id number] Pauly Rodriguez [id number] Pauly Rodriguez 01/14/2024 1 [facility] [id number] Pauly Rodriguez [id number] Pauly Rodriguez 08/04/2024 1 [facility] [id number] Sinan Rodriguez [id number] Pauly Rodriguez Notes Date Note Type Note Provider Name and Address Organization Details Recorded Time 11/20/2022 text/html Throat PainRepor tracey bypatient.Notes:Presen ts for sx sore throat, ear pain, sinus pain/ pressure, + coughing with phlegm- yellow/ bloody unclear if fever due to hot flashes. + chills, feels tired.using mucinex but no relief. no sick contacts MATTY Beebe [address] [address], [place], [address], [facility] 11/20/2022 15:07:31 12/31/2022 text/html Musculoskeletal PainReported [...] started yesterday 12/30. 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 Pt does have a histroy of upper back spasms. Pt has been taking Ibuprofen (800mg every 6 hours) and using her muscle relaxers which do help. LUBNA CANO MD [address] [address], [place], [address], [facility] 12/31/2022 12:37:39 01/08/2023 text/html Generic HPI TemplateReported bypatient.Notes:47 year old female for annual well visit.Moderate persistent asthma followed by pulmonary, on Breo and Symbicort, Albuterol PRN> Fibromyalgia followed by calciner operator helper, on muscle relaxants PRN and lidocaine patch. Used to take pregabalin as well.Family h/o colo cancer , thyroid disease, Lupus in sister. NO prior colonoscopy. Due for EYELETTER and mammo in fall.Multinodular goiter. Pt. was referred to endo at [facility] and had biopsy done which was benign. Her TSH was also normal.BMI is 24.9. Vaccines are up to date. Sees EYELETTER and has mammogram yearly. NO records in chart. Michaelle Wallace PA-C [address] [address], [place], [address], [facility] [place]/08/[place]23 15:11:26 01/14/2024 text/html Generic HPI TemplateReported bypatient.Notes:Presen ts for PE, no concerns. Has been having back pain- negative Xray, pain is everywhere, + numbness and tingling. XR showed degenerative disc disease. MATTY Beebe [address] [facility] [address], [place], [address], [facility] 01/14/2024 15:46:12 08/04/2024 text/html 48y/o with FMS h aving left sided non exertional midline chest pain for a few days. Starts at sternum then radiates posteriorly L>R. Happening with supine positioning. Has history of asthma and GERD. Under a lot of stress since her mother's recent passing in hospice care. Rob Valencia MD [address] [address], [place], [address], [facility] 08/05/2024 16:37:35 OBGyn Episode No OBEpisode recorded.
--- OUTSIDE RECORDS SUMMARY | 2024-08-06 16:12 | XMS_ITS | Clinical Summary ---
Author Organization [facility] ity Address [address] [place] [address] Care Team Providers Care Scorer Helper Name Role Phone Unavailable Primary Care Provider [...] 05/19/2022 Social Influencers of Health Screening 05/19/2022 Pneumococcal Vaccine: 50+ Ye ars (1 of 1 - PCV) 10/22/2023 Zoster Vaccines (1 of 2) 10/22/2023 COVID-19 [...] patient's age to complete this topic Meningococcal B Vacine Aged Out No lo nger eligible based on patient's age to complete [...]
== END 2024-08-06 16:58 | disposition home or self-care (01) ==
LOC: HO.HWS 15:11
PROVIDERS: PCP Registered Nurse; Visit Provider Advanced Practice Midwife
DX: N95.0 Postmenopausal bleeding (principal); R87.610 Atypical squamous cells of undetermined significance on cytologic smear of cervix (ASC-US); Z71.2 Person consulting for explanation of examination or test findings
CPT/HCPCS: 99213

== ENCOUNTER 2024-08-21 07:24 | Outpatient (REF) | payer OTHER, SELFPAY ==
--- OUTSIDE RECORDS SUMMARY | 2024-08-21 07:48 | XMS_ITS | Clinical Summary ---
Author Organization [facility] ity Address [address] [place] [address] Care Team Providers Care Heel Attacher Wood Name Role Phone Unavailable Primary Care Provider [...]
--- OUTSIDE RECORDS SUMMARY | 2024-08-21 07:48 | XMS_ITS | Data Portability ---
Author Organization [facility], Main Office Address [address] [place] [id number] Care Team Providers Care Party Plan Demonstrator Name Role Phone [facility] Baseboard Heating Installer [facility] Gynecologi st KATT LOPEZ Primary Care Provider Assessment No assessment recorded. Plan of Treatment Reminders Order Date Submit Date Provider Last Modified By Organization Details Last Modified Time Details Appointments PE EST 2024 01:30P M Katt Lopez PA-C Not available Not available Not available Lab CBC w/ auto diff 2023 024 LATA [facility] (Centralized Electronic Ordering - All Locations), Patient Can Go To The Location Of Their Choice, 01/18/2024 06:08:28 TSH + free T4, serum 2023 024 LATA [facility] (Centralized Electronic Ordering - All Locations), Patient Can Go To The Location Of Their Choice, 01/18/2024 06:08:28 CMP, serum or plasma 2023 024 LATA [facility] (Centralized Electronic Ordering - All Locations), Patient Can Go To The Location Of Their Choice, 01/18/2024 06:08:29 lipid panel, serum 2023 024 LATA [facility] (Centralized Electronic Ordering - All Locations), Patient Can Go To The Location Of Their Choice, 01/18/2024 06:08:30 vitami n B12 + folate , serum or blood 2023 024 LATA [facility] (Centralized Electronic Ordering - All Locations), Patient Can Go To The Location Of Their Choice, [id number] 01/18/2024 06:08:30 iron + TIBC + ferrit in, serum 2023 024 LATA [facility] (Centralized Electronic Ordering - All Locations), Patient Can Go To The Location Of Their Choice, [id number] 01/18/2024 06:08:27 HbA1c (hemog lobin A1c), blood 2023 024 LATA [facility] (Centralized Electronic Ordering - All Locations), Patient Can Go To The Location Of Their Choice, [id number] 01/18/2024 06:08:31 vitami n D, 25-hyd bettie, total, serum 2023 024 LATA [facility], [address], [place], [address], 01/18/2024 06:08:31 lipid panel, serum 2022 023 LATA [facility], [address], [address], 01/08/2023 15:04:45 rapid flu (A+B) 2022 023 LATA In-Office Order, Internal Use Only DO Not Attach Compendium DO Not Attach Compendium, Do Not Delete/merge, [id number] 11/20/2022 15:02:36 strep group A, DNA, swab 2022 023 LATA In-Office Order, Internal Use Only DO Not Attach Compendium DO Not Attach Compendium, Do Not Delete/merge, [id number] 11/20/2022 14:52:17 Referral spine center referr al - upper and lower back pain, XR 2022 showed modera te degene rative change s. 2023 024 fina [facility], [address], [place], [address], 07/13/2024 09:13:02 spine center referr al - upper and lower back pain, XR 2022 showed modera te degene rative change s. 2023 024 fina [facility], [address] [facility], [place], [address], 07/13/2024 09:13:03 gastro entero logist referr al - Needs colon cancer screen ing 2023 024 alida [facility], [address] [facility], [address], [place], [address], 02/13/2024 14:50:21 gyneco logist referr al 2022 023 LATA Not available 06/12/2023 15:07:32 physic al therap ist referr al - lumbar and right hip 2022 023 [email or web address] Not available 07/17/2023 13:05:27 Procedures cerume n remova l (PROC) 2022 023 LATA In-Office Order, Internal Use Only DO Not Attach Compendium DO Not Attach Compendium, Do Not Delete/merge, [id number] 01/08/2023 16:42:22 Surgeries None record ed. Imaging MAMMO, screen ing, bilate ral 2022 023 LATA Not available 06/05/2023 15:07:59 XR, lumbos acral spine, 2 or 3 view 2022 023 [email or web address] Not available 01/14/2023 15:19:17 XR, hip, unilat eral, 2 or 3 view 2022 023 LATA Not available 12/31/2022 11:22:05 Medication Orders omepra zole 20 mg capsul edaniel releas e 2024 025 christina [id number], [address] [facility] [place], [address], 08/05/2024 16:29:15 predni sone 20 mg tablet 2024 025 LATA [id number], [address] [place], [address], 08/04/2024 15:40:50 predni sone 20 mg tablet 2022 023 [id number], [address] [place], [address], 08/04/2024 15:14:31 predni sone 20 mg tablet 2022 023 [id number], [address] [place], [address], 08/04/2024 15:14:31 Patient TargetsNo targets recorded. Patient Instructions Encounter Date Encounter Id Patient Instructions Last Modified By Organization Details Last Modified Time 11/20/2022 [id number] To call or retur n for worsening or concerns [email or web address] Not available 11/20/2022 14:32:56 01/14/2024 [id number] low back pain: exercises jthabet Not available [...] concerns jthabet Not available 01/14/2024 13:30:42 08/04/2024 [id number] healthy upper ba ck: exercises awychowski Not available 08/04/2024 15:40:47 gastroesophageal reflux disease (GERD): care instructions awychowski Not available 08/04/2024 15:40:47 costochondritis: care instructions awychowski Not available 08/04/2024 15:40:47 Reason for Referral Physical Therapist Referral for Pain in right hip joint lumbar and right hip Referring Physician: Lubna Cano, Family Medicine, Encounter Date: 12/31/2022 Cigarette Filter Inspector Referral for Sc reening for malignant neoplasm of cervix Referring Physician: Michaelle Wallace, Internal Medicine, Encounter Date: 01/08/2023 Print Color Matcher Referral for Screening for malignant neoplasm of colon Needs colon cancer screening Referring Physician: Katt Lopez, Family Medicine, Encounter Date: 01/14/2024 Spine Center Referral for Ch ronic low back pain upper and lower back pain, XR 2022 showed moderate degenerative changes. Referring Physician: aKtt Lopez [facility], Encounter Date: 01/14/2024 Spine Center Referral for Th oracic back pain upper and lower back pain, XR 2022 showed moderate degenerative changes. Referring Physician: Katt Lopez [facility], Encounter Date: 01/14/2024 Results Created Date Observation Date Name Description Value Unit Range Abnormal Flag Note LastModifiedBy Organization Detail LastModifiedTime 11/21/1911/20/2022 rapid flu (A+B) Flu A negati ve Not Available In-Office Order Internal Use Only DO Not Attach Compendium DO Not Attach Compendium, Do Not Delete/merge, [id number] 11/20/2022 14:32:23 11/21/19 23 11/20/2022 rapid flu (A+B) Flu B negati ve Not Available In-Office Order Internal Use Only DO Not Attach Compendium DO Not Attach Compendium, Do Not Delete/merge, [id number] 11/20/2022 14:32:23 11/21/19 23 11/20/2022 strep group A, DNA, swab ID NOW Strep A 2 (rapid molecular test) negati ve Not Available In-Office Order Internal Use Only DO Not Attach Compendium DO Not Attach Compendium, Do Not Delete/merge, [id number] 11/20/2022 14:32:27 01/09/20 23 01/08/2023 cerum en remov al (PROC ) done by Bolivar lee Not Available In-Office Order Internal Use Only DO Not Attach Compendium DO Not Attach Compendium, Do Not Delete/merge, [id number] 01/08/2023 15:05:19 01/17/20 24 01/18/2024 FE+TI BC+FE R iron bind.cap.(TI BC) 303 ug/dL 250-45 0 normal Not Available [facility] ([facility]) [address] [place], [address], 01/18/2024 06:08:27 01/17/20 24 01/18/2024 FE+TI BC+FE R UIBC 234 ug/dL 131-42 5 normal Not Available [facility] ([facility]) [address] [place], [address], 01/18/2024 06:08:27 01/17/20 24 01/18/2024 FE+TI BC+FE R iron 69 ug/dL 27-159 normal Not Available [facility] ([facility]) [address] [place], [address], 01/18/2024 06:08:27 01/17/20 24 01/18/2024 FE+TI BC+FE R iron saturation 23 % 15-55 normal Not Available [facility] ([facility]) [address] [place], [address], 01/18/2024 06:08:27 01/17/20 24 01/18/2024 FE+TI BC+FE R ferritin 134 NG/mL 15-150 normal Not Available [facility] ([facility]) [address] [place], [address], 01/18/2024 06:08:27 01/17/20 24 01/17/2024 TSH+F REE T4 TSH 2.100 uIU/m L 0.450- 4.500 normal Not Available [facility] ([facility]) [address] [place], [address], 01/18/2024 06:08:28 01/17/20 24 01/17/2024 TSH+F REE T4 T4,free(dire ct) 0.83 NG/dL 0.82-1 .77 normal Not Available [facility] ([facility]) [address] [facility], [place], [address], 01/18/2024 06:08:28 01/17/20 24 01/18/2024 CBC WITH DIFFE RENTI AL/PL ATELE T WBC 7.0 x10e3 /uL 3.4-10 .8 normal Not Available [facility] ([facility]) [address] [facility], [place], [address], 01/18/2024 06:08:28 01/17/20 24 01/18/2024 CBC WITH DIFFE RENTI AL/PL ATELE T RBC 4.68 x10e6 /uL 3.77-5 .28 normal Not Available [facility] ([facility]) [address] [facility], [place], [address], 01/18/2024 06:08:28 01/17/20 24 01/18/2024 CBC WITH DIFFE RENTI AL/PL ATELE T hemoglobin 13.8 g/dL 11.1-1 5.9 normal Not Available [facility] ([facility]) [address] [place], [address], 01/18/2024 06:08:28 01/17/20 24 01/18/2024 CBC WITH DIFFE RENTI AL/PL ATELE T hematocrit 43.3 % 34.0-4 6.6 normal Not Available [facility] ([facility]) [address] [place], [address], 01/18/2024 06:08:28 01/17/20 24 01/18/2024 CBC WITH DIFFE RENTI AL/PL ATELE T MCV 93 fL 79-97 normal Not Available [facility] ([facility]) [address] [place], [address], 01/18/2024 06:08:28 01/17/20 24 01/18/2024 CBC WITH DIFFE RENTI AL/PL ATELE T MCH 29.5 pg 26.6-3 3.0 normal Not Available [facility] ([facility]) [address] [facility], [place], [address], 01/18/2024 06:08:28 01/17/20 24 01/18/2024 CBC WITH DIFFE RENTI AL/PL ATELE T MCHC 31.9 g/dL 31.5-3 5.7 normal Not Available [facility] ([facility]) [address] [facility], [place], [address], 01/18/2024 06:08:28 01/17/20 24 01/18/2024 CBC WITH DIFFE RENTI AL/PL ATELE T RDW 12.7 % 11.7-1 5.4 Not Available [facility] ([facility]) [address] [place], [address], 01/18/2024 06:08:28 01/17/20 24 01/18/2024 CBC WITH DIFFE RENTI AL/PL ATELE T platelets 268 x10e3 /uL 150-45 0 normal Not Available [facility] ([facility]) [address] [place], [address], 01/18/2024 06:08:28 01/17/20 24 01/18/2024 CBC WITH DIFFE RENTI AL/PL ATELE T neutrophils 51 % not estab. normal Not Available [facility] ([facility]) [address] [place], [address], 01/18/2024 06:08:28 01/17/20 24 01/18/2024 CBC WITH DIFFE RENTI AL/PL ATELE T lymphs 38 % not estab. normal Not Available [facility] ([facility]) [address] [place], [address], 01/18/2024 06:08:28 01/17/20 24 01/18/2024 CBC WITH DIFFE RENTI AL/PL ATELE T monocytes 7 % not estab. normal Not Available [facility] ([facility]) [address] [place], [address], 01/18/2024 06:08:28 01/17/20 24 01/18/2024 CBC WITH DIFFE RENTI AL/PL ATELE T eos 3 % not estab. normal Not Available [facility] ([facility]) [address] [place], [address], 01/18/2024 06:08:28 01/17/20 24 01/18/2024 CBC WITH DIFFE RENTI AL/PL ATELE T basos 1 % not estab. normal Not Available [facility] ([facility]) [address] [place], [address], 01/18/2024 06:08:28 01/17/20 24 01/18/2024 CBC WITH DIFFE RENTI AL/PL ATELE T immature cells AGITATOR OPERATOR Not Available [facility] ([facility]) [address] [place], [address], 01/18/2024 06:08:28 01/17/20 24 01/18/2024 CBC WITH DIFFE RENTI AL/PL ATELE T neutrophils (absolute) 3.6 x10e3 /uL 1.4-7. 0 normal Not Available [facility] ([facility]) [address] [place], [address], 01/18/2024 06:08:28 01/17/20 24 01/18/2024 CBC WITH DIFFE RENTI AL/PL ATELE T lymphs (absolute) 2.7 x10e3 /uL 0.7-3. 1 normal Not Available [facility] ([facility]) [address] [place], [address], 01/18/2024 06:08:28 01/17/20 24 01/18/2024 CBC WITH DIFFE RENTI AL/PL ATELE T monocytes(ab solute) 0.5 x10e3 /uL 0.1-0. 9 normal Not Available [facility] ([facility]) [address] [place], [address], 01/18/2024 06:08:28 01/17/20 24 01/18/2024 CBC WITH DIFFE RENTI AL/PL ATELE T eos (absolute) 0.2 x10e3 /uL 0.0-0. 4 normal Not Available [facility] ([facility]) [address] [facility], [place], [address], 01/18/2024 06:08:28 01/17/20 24 01/18/2024 CBC WITH DIFFE RENTI AL/PL ATELE T baso (absolute) 0.1 x10e3 /uL 0.0-0. 2 normal Not Available [facility] ([facility]) [address] [facility], [place], [address], 01/18/2024 06:08:28 01/17/20 24 01/18/2024 CBC WITH DIFFE RENTI AL/PL ATELE T immature granulocytes 0 % not estab. Not Available [facility] ([facility]) [address] [facility], [place], [address], 01/18/2024 06:08:28 01/17/20 24 01/18/2024 CBC WITH DIFFE RENTI AL/PL ATELE T immature grans (abs) 0.0 x10e3 /uL 0.0-0. 1 Not Available [facility] ([facility]) [address] [place], [address], 01/18/2024 06:08:28 01/17/20 24 01/18/2024 CBC WITH DIFFE RENTI AL/PL ATELE T NRBC AGITATOR OPERATOR Not Available [facility] ([facility]) [address] [place], [address], 01/18/2024 06:08:28 01/17/20 24 01/18/2024 CBC WITH DIFFE RENTI AL/PL ATELE T hematology comments: AGITATOR OPERATOR Not Available [facility] ([facility]) [address] [place], [address], 01/18/2024 06:08:28 01/17/20 24 01/17/2024 COMP. METAB OLIC PANEL (14) glucose 94 mg/dL 70-99 normal Not Available [facility] ([facility]) [address] [place], [address], 01/18/2024 06:08:29 01/17/20 24 01/17/2024 COMP. METAB OLIC PANEL (14) BUN 12 mg/dL 6-24 normal Not Available [facility] ([facility]) [address] [place], [address], 01/18/2024 06:08:29 01/17/20 24 01/17/2024 COMP. METAB OLIC PANEL (14) creatinine 0.89 mg/dL 0.57-1 .00 normal Not Available [facility] ([facility]) [address] [place], [address], 01/18/2024 06:08:29 01/17/20 24 01/17/2024 COMP. METAB OLIC PANEL (14) eGFR 79 mL/mi n/1.7 3 >59 normal Not Available [facility] ([facility]) [address] [place], [address], 01/18/2024 06:08:29 01/17/20 24 01/17/2024 COMP. METAB OLIC PANEL (14) BUN/creatini ne ratio 13 9-23 normal Not Available [facility] ([facility]) [address] [place], [address], 01/18/2024 06:08:29 01/17/20 24 01/17/2024 COMP. METAB OLIC PANEL (14) sodium 142 mmol/ L 134-14 4 normal Not Available [facility] ([facility]) [address] [place], [address], 01/18/2024 06:08:29 01/17/20 24 01/17/2024 COMP. METAB OLIC PANEL (14) potassium 4.2 mmol/ L 3.5-5. 2 normal Not Available [facility] ([facility]) [address] [place], [address], 01/18/2024 06:08:29 01/17/20 24 01/17/2024 COMP. METAB OLIC PANEL (14) chloride 107 mmol/ L 96-106 above high normal Not Available [facility] ([facility]) [address] [place], [address], 01/18/2024 06:08:29 01/17/20 24 01/17/2024 COMP. METAB OLIC PANEL (14) carbon dioxide, total 21 mmol/ L 20-29 normal Not Available [facility] ([facility]) [address] [place], [address], 01/18/2024 06:08:29 01/17/20 24 01/17/2024 COMP. METAB OLIC PANEL (14) calcium 9.3 mg/dL 8.7-10 .2 normal Not Available [facility] ([facility]) [address] [place], [address], 01/18/2024 06:08:29 01/17/20 24 01/17/2024 COMP. METAB OLIC PANEL (14) protein, total 7.7 g/dL 6.0-8. 5 normal Not Available [facility] ([facility]) [address] [place], [address], 01/18/2024 06:08:29 01/17/20 24 01/17/2024 COMP. METAB OLIC PANEL (14) albumin 4.4 g/dL 3.9-4. 9 normal Not Available [facility] ([facility]) [address] [place], [address], 01/18/2024 06:08:29 01/17/20 24 01/17/2024 COMP. METAB OLIC PANEL (14) globulin, total 3.3 g/dL 1.5-4. 5 Not Available [facility] ([facility]) [address] [place], [address], 01/18/2024 06:08:29 01/17/20 24 01/17/2024 COMP. METAB OLIC PANEL (14) bilirubin, total 0.3 mg/dL 0.0-1. 2 normal Not Available [facility] ([facility]) [address] [place], [address], 01/18/2024 06:08:29 01/17/20 24 01/17/2024 COMP. METAB OLIC PANEL (14) alkaline phosphatase 117 IU/L 44-121 normal Not Available [facility] ([facility]) [address] [place], [address], 01/18/2024 06:08:29 01/17/20 24 01/17/2024 COMP. METAB OLIC PANEL (14) AST (SGOT) 23 IU/L 0-40 normal Not Available [facility] ([facility]) [address] [place], [address], 01/18/2024 06:08:29 01/17/20 24 01/17/2024 COMP. METAB OLIC PANEL (14) ALT (SGPT) 32 IU/L 0-32 normal Not Available [facility] ([facility]) [address] [place], [address], 01/18/2024 06:08:29 01/17/20 24 01/17/2024 LIPID PANEL cholesterol, total 186 mg/dL 100-19 9 normal Not Available [facility] ([facility]) [address] [place], [address], 01/18/2024 06:08:30 01/17/20 24 01/17/2024 LIPID PANEL triglyceride s 132 mg/dL 0-149 normal Not Available [facility] ([facility]) [address] [place], [address], 01/18/2024 06:08:30 01/17/20 24 01/17/2024 LIPID PANEL HDL cholesterol 48 mg/dL >39 normal Not Available [facility]) [address] [place], [address], 01/18/2024 06:08:30 01/17/20 24 01/17/2024 LIPID PANEL VLDL cholesterol elliott 24 mg/dL 5-40 Not Available [facility] ([facility]) [address] [place], [address], 01/18/2024 06:08:30 01/17/20 24 01/17/2024 LIPID PANEL LDL chol calc ([facility]) 114 mg/dL 0-99 above high normal Not Available [facility] ([facility]) [address] [place], [address], 01/18/2024 06:08:30 01/17/20 24 01/17/2024 LIPID PANEL LDL calc comment: AGITATOR OPERATOR Not Available [facility] ([facility]) [address] [facility], [place], [address], 01/18/2024 06:08:30 01/17/20 24 01/18/2024 VITAM IN B12 AND FOLAT E vitamin B12 800 pg/mL 232-12 45 normal Not Available [facility] ([facility]) [address] [place], [address], 01/18/2024 06:08:30 01/17/20 24 01/18/2024 VITAM IN B12 AND FOLAT E folate (folic acid), serum 15.0 NG/mL >3.0 normal A serum folat e zachary ntrat ion of less than 3.1 ng/mL is consi dered to repre sent clini elliott defic iency . Not Available [facility] ([facility]) [address] [place], [address], 01/18/2024 06:08:30 01/17/20 24 01/18/2024 HEMOG LOBIN A1C hemoglobin A1C 5.6 % 4.8-5. 6 normal Predi abete s: 5.7 - 6.4 Diabe shan: >6.4 Glyce manuel contr ol for adult s with diabe shan: <7.0 Not Available [facility] ([facility]) [address] [facility], [place], [address], 01/18/2024 06:08:31 01/17/20 24 01/18/2024 VITAM IN [...] Medic ine). 2009. Dieta ry refer ence maynor es for calci um and D. Uzma arzate [place]: [facility] . 2. Delilah noel MF, Jonah ey [place], Tawanna off-F errar i PERRY, et al. Evalu ation , treat ment, and preve ntion of vitam in D defic iency : an Endoc rine Socie ty clini elliott pract ice guide line. JCEM. 2010; 96(7) :1911 -30. Not Available [facility] ([facility]) [address] [facility], [place], [address], 01/18/2024 06:08:31 01/01/20 23 12/31/2022 XR, hip, [...] tissue s. IMPRES RAUDEL: Normal . WSN: [id number] Orderi ng Physic erin: Paul Eric ie Dictat ed By: Mariam Sullivan MD Dictat ed Date/T jesu: 11:18 a Review ed By: Peg roland MD, Mariam gardner Signed By: Peg roland MD, Mariam gardner Signed Date/T jesu: 11:18 am Transc ribed By: JACK Transc ribed Date/T jesu: 11:18 am Patien t Class: Outpat ient [facility] (Outpt Imaging) [address] [place] [address], [address], 01/01/2023 08:02:33 01/01/20 23 12/31/2022 XR, lumbo sacra l spine , 2 [...] ng. 2. Mild stool retent ion. WSN: [id number] Orderi ng Physic erin: Paul Eric ie Dictat ed By: Peg roland MD, Mariam gardner Dictat ed Date/T jesu: 11:23 a Review ed By: Peg roland MD, Mariam gardner Signed By: Peg roland MD, Mariam gardner Signed Date/T jesu: 11:23 am Transc ribed By: CSB Transc ribed Date/T jesu: 11:20 am Patien t Class: Outpat ient [facility] (Outpt Imaging) [address], [place], [address], 01/14/2023 15:19:17 06/05/20 23 05/14/2023 MAMMO , scree jake, bilat eral No observ ation record ed. [email or web address] [address] [place], [address], 06/05/2023 15:23:06 06/12/20 23 06/12/2023 XR, hand No observ ation record ed. [address] (Medical Records) [address] [facility] [place], [address], 01/03/2024 15:44:16 07/09/19 24 07/05/2023 US, young c wall No observ ation record ed. [address] (Medical Records) [address] [facility] [place], [address], 07/09/2023 10:17:40 07/11/19 24 07/10/2023 Thyro id Biops y, Percu taneo us Core Needl e (PROC ) No observ ation record ed. [address] (Medical Records) [address] [facility] [place], [address], 07/11/2023 19:41:10 05/26/20 24 05/19/2024 MAMMO , scree jake, bilat eral No observ ation record ed. [email or web address] [address] [place], [address], 05/26/2024 08:54:37 07/30/1907/29/2024 US, pelvi s, trans abdom inal + trans vagin al No observ ation record ed. [address] (Medical Records) [address] [facility] [place], [address], 08/14/2024 08:47:51 Result Notes None recorded. Problems Name Problem SNOMED Code Status Onset Date Resolution Date Notes Provider Name and Address Organization Details Recorded Time Fibromyalgi a 622549612 Active 2021 Michaelle Wallace PA-C [address], [place], [address], [facility] 2 14:43:17 Moderate persistent asthma 940033480 Active 2021 Michaelle Wallace PA-C [address], [place], [address], [facility] 2 15:12:12 Family history of Thyroid disorder 913015480 Active 2021 Michaelle Wallace PA-C [address] [facility] [address], [place], [address], [facility] 2 15:13:09 Multinodula r goiter 131058262 Active 2021 Michaelle Wallace PA-C [address], [place], [address], [facility] 2 09:03:54 Palpitation s 62231726 Active 2022 Michaelle Wallace PA-C [address] [facility] [address], [place], [address], [facility] 3 11:23:20 Acute pharyngitis 331931773 Completed 202201/08/2023 Rudy Painting MA null, [facility] 3 14:32:44 Fatigue 23798930 Active 2023 MATTY Beebe [address] [facility] [address], [place], [address], [facility] 4 13:30:16 Hyperlipide blanche 44458724 Active 2023 MATTY Beebe [address] [facility] [address], [place], [address], [facility] 4 13:30:34 Vitamin D deficiency 99224414 Active 2023 Katt Lopez [facility] [address] [facility] [address], [place], [address], [facility] 4 15:06:17 Anemia 710101972 Active 2023 [facility] [address] [facility] [address], [place], [address], [facility] 4 15:06:23 Impaired fasting glycemia 562448989 Active 2023 Katt [facility] [address] [address], [place], [address], [facility] 4 15:07:04 Chronic low back pain 970233376 Active 2023 Katt Lopez [facility] [address] [place] [address], [place], [address], [facility] 4 15:12:19 Thoracic back pain 266241991 Active 2023 Katt Lopez [facility] [address] [address], [place], [address], [facility] 4 15:12:27 Menopausal flushing 652081224 Active 2023 Katt [facility] [address] [address], [place], [address], [facility] 4 15:44:36 Problem Notes None recorded. Procedures Surgical History Date Name Laterality Status Provider Name and Address Organization Details Recorded Time 05/14/20 23 Most Recent Mammogram completed Benita Haq [facility] 06/05/2023 15:23:00 05/14/20 23 Mammogram both breasts completed Benita Haq [facility] 06/05/2023 15:22:53 11/04/20 22 Date of Last Pap Smear completed Lori Bustos [facility] 04/25/2022 09:48:29 04/17/20 Endometrial Ablation completed Stephaniebenito Melendezgagan [place] [facility] 01/05/2022 14:16:08 06/30/19 Breast Surgery completed Stephanie MelendezgaganMIREILLE [facility] 01/05/2022 14:16:08 06/17/19 Tubal Ligation completed Stephanie Melendezgagan [place] [facility] 01/05/2022 14:16:08 Imaging Results Imaging Date Name Status LastModified by Organization Details LastModified Time 12/31/2022 XR, hip, unilateral, 2 or 3 view completed [facility] (Outpt Imaging) [address] [place], [address], 01/01/2023 08:02:33 12/31/2022 XR, lumbosacral spine, 2 or 3 view completed [facility] (Outpt Imaging) [address] [place], [address], 01/14/2023 15:19:17 05/14/2023 MAMMO, screening, bilateral completed [email or web address] [facility] [address] [place] [address] [place], [address], 06/05/2023 15:23:06 06/12/2023 XR, hand completed [email or web address] [facility] (Medical Records) [address] [place], [address], 01/03/2024 15:44:16 07/05/2023 [facility] [place] [address] (Medical Records) [address] [place], [address], 07/09/2023 10:17:40 07/10/2023 Thyroid Biopsy, Percutaneous Core Needle (PROC) completed [address] (Medical Records) [address] [place], [address], 07/11/2023 19:41:10 05/19/2024 MAMMO, screening, bilateral [facility] [address] [place] [address] [place], [address], 05/26/2024 08:54:37 07/29/2024 US, pelvis, transabdominal + transvaginal completed [email or web address] [facility] (Medical Records) [address] [facility], [place], [address], 08/14/2024 08:47:51 Procedure Notes None recorded. Medical Equipment None [...] Not Available prednisone 20 mg tablet TAKE 1 TABLET BY MOUTH EVERY DAY DIRECTED FOR 5 DAYS active Not Available Not Available No t Available terconazole 0.8 % vaginal cream 1 APPFUL [...] Updated DateTime 3 165.74 cm 25.1 kg/m2 94418.4 4 g 82 /min 95 % 95 % 97.9 [degF] 117 mm[Hg] 78 mm[Hg] Ruma Mcnamara MA [facility] 3 14:22:10 Date Recorded Body height Body mass index (BMI) Body weight Oxygen saturation Oxygen saturation in Arterial blood by Pulse oximetry Heart rate Body temperature Systolic blood pressure Diastolic blood pressure Provider Name and Address Organization Details Last Updated DateTime 3 165.74 cm 25.4 kg/m2 79313.9 2 g 97 % 97 % 79 /min 98 [degF] 113 mm[Hg] 79 mm[Hg] Pam Rodgers MA [facility] 3 10:07:22 Date Recorded Body height Body mass index (BMI) Body weight Heart rate Oxygen saturation Oxygen saturation in Arterial blood by Pulse oximetry Body temperature Systolic blood pressure Diastolic blood pressure Provider Name and Address Organization Details Last Updated DateTime 3 165.74 cm 24.9 kg/m2 67487.4 5 g 75 /min 98 % 98 % 98 [degF] 108 mm[Hg] 68 mm[Hg] Rudy Painting MA [facility] 3 14:32:56 Date Recorded Body height Body mass index (BMI) Body weight Heart rate Oxygen saturation Oxygen saturation in Arterial blood by Pulse oximetry Body temperature Systolic blood pressure Diastolic blood pressure Provider Name and Address Organization Details Last Updated DateTime 4 165.74 cm 25.6 kg/m2 64680.8 2 g 77 /min 98 % 98 % 97.6 [degF] 97 mm[Hg] 64 mm[Hg] Laurence hart MA [facility] 4 14:47:35 Date Recorded Body height Body mass index (BMI) Body weight Heart rate Oxygen saturation Oxygen saturation in Arterial blood by Pulse oximetry Body temperature Systolic blood pressure Diastolic blood pressure Provider Name and Address Organization Details Last Updated DateTime 5 165.74 cm 25.7 kg/m2 68807.9 2 g 71 /min 99 % 99 % 97.6 [degF] 127 mm[Hg] 73 mm[Hg] Stephanie Huynh MA [facility] 5 15:23:28 Social History Question Answer Notes LastModified by Organizat ion Details LastModified Time Tobacco Smoking Status Never Smoker [place] [facility] 14:16:05 What Is Your Level [...] not available 01/05/2022 What Is Your Occupation? [employer] Information not available 01/14/2024 Do You Take [...] [email or web address] Not available 14:15:55 Father Diabetes mellitus [email or web address] Not available 14:15:55 Father Type 2 diabetes mellitus [facility] Not available 14:30:47 Mother Liver problem [email or web address] Not available 14:15:55 Mother Disorder of thyroid gland [facility] Not available 14:15:55 Mother [facility]lipidem [facility] Not available 14:31:11 Medical History Condition Response Fibromyalgia Y Asthma Y Gynecological History Statement/Question Response Menses Monthly N Date of Last Pap Smear 04/20/2022 Date of Last Colonoscopy Most Recent Mammogram 05/14/2023 Obstetrics History GPAL:G 0 P 0 0 0 0 Immunizations Vaccine Type Date Status Note Provider Nam e and Address Organization Details Recorded Time MMR 9 completed [place] Apodaca [facility] 01/05/2022 14:23:52 Tdap 7 completed [place] Apodaca [facility] 01/05/2022 14:23:52 COVID-19, mRNA, LNP-S, PF, 30 mcg/0.3 mL dose 1 completed [place] Apodaca [facility] 01/05/2022 14:23:52 Hep B, adult 9 completed [place] Apodaca [facility] 01/05/2022 14:23:52 COVID-19, mRNA, LNP-S, PF, 30 mcg/0.3 mL dose 1 completed [place] Apodaca [facility] 01/05/2022 14:23:52 Influenza, split virus, quadrivalent, PF 1 completed [place] Apodaca [facility] 01/05/2022 14:23:52 Influenza, split virus, quadrivalent, PF 9 completed [place] Apodaca [facility] 01/05/2022 14:23:52 COVID-19, mRNA, LNP-S, PF, 30 mcg/0.3 mL dose 1 completed [place] Apodaca, [facility] 01/05/2022 14:23:52 Hep B, adult 9 completed [place] Apodaca, [facility] 01/05/2022 14:23:52 Influenza, split virus, quadrivalent, preservative 0 completed [place] Apodaca [facility] 01/05/2022 14:23:52 Hep B, adult 9 completed [place] Apodaca, [facility] 01/05/2022 14:23:52 Influenza, MDCK, quadrivalent, PF 2 completed [place] Alba [facility] 11/20/2022 14:16:38 COVID-19, mRNA, LNP-S, bivalent, PF, 30 mcg/0.3 mL dose 2 completed [place] Alba [facility] 11/20/2022 14:16:38 Influenza, MDCK, quadrivalent, PF 3 completed [place] Apodaca [facility] 08/04/2024 15:07:11 Influenza, split virus, trivalent, PF 4 [facility] [place] [facility] 15:07:11 Past Encounters Encounter ID Performer Location Encounter Start Date Encounter Closed Date Diagnosis/Indication Diagnosis SNOMED-CT Code Diagnosis ICD10 Code Diagnosis Note [id number] Michaelle Wallace PA-C Main Office [address] [facility] [place] [address] 01/05/2022 14:03:27 01/05/2022 15:06:08 Adult health examination 747544038 Z00.00 recommend second COVID booster Fibromyalgia 087641511 M 77.7 f/u with rheumatolo gist Screening for malignant neoplasm of cervix 620332172 Z12.4 Screening for malignant neoplasm of breast 751370477 Z12.39 Screening for malignant neoplasm of colon 416730434 Z12.11 Hyperlipidemia 76737653 E78.5 Vitamin D deficiency 347 58902 E55.9 Thyroid nodule 941742252 E04.1 Single R. lobe nodule. Schedule ultrasound and labs. Moderate p ersistent asthma 493778495 J45.40 f/u with pulmonary. [id number] Michaelle Wallace PA-C Main Office [address] [facility] [address] [place] [address] 09/11/2022 10:49:03 09/11/2022 11:28:59 Palpitations 11891842 R00.2 check thyroid labs and bmp. Schedule echo cardiogram and refer to cardiology for an event monitor. PT. was advised to avoid excessive physical activity or caffeine. [id number] MATTY Beebe Main Office [address] [place] [address] 11/20/2022 14:05:57 11/20/2022 14:54:55 Fever 040443250 R50.9 flu negative A/B, likely viral illness, hydration, rest mucinex as needed, may start prednisone burst. Acute pharyngitis 407402 003 J02.9 strep negative. Moderate p ersistent asthma 032725442 J45.40 using her inhalers and neb but coughing persists. start prednisone burst, hydration, rest, continue mucinex as needed. Continue inhalers/ nebs as needed. If sx persist or worsen please call/ return. 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 Moderate p ersistent asthma 094035562 J45.40 f/u with pulmonary. Multinodular goiter 2375 45571 E04.2 f/u with endo yearly. Fibromyalgia 827458021 M 77.7 f/u with rheumatolo gist Screening for malignant neoplasm of breast 431375330 Z12.39 Screening for malignant neoplasm of cervix 878906562 Z12.4 Hyperlipidemia 97642785 E78.5 Impacted c erumen in right ear 6589651527 212419 H61.21 [id number] MATTY Beebe Main Office [address] [facility] [address] [place] [address] 01/14/2024 14:31:36 01/14/2024 15:24:24 Multinodular goiter 966215769 E04.2 sees endocrinol ogy yearly Moderate p ersistent asthma 550948581 J45.40 Fibromyalgia 759053608 M 77.7 Adult heal th examination 706301241 Z00.00 Mammo and pap UTD, april and may, needs colonoscop y will refer. pulm May 13. Fatigue 32769402 R53.83 Hyperlipidemia 33222358 E78.5 Vitamin D deficiency 347 27949 E55.9 Anemia 270954407 D64.9 Impaired f asting glycemia 732595477 R73.01 Screening for malignant neoplasm of colon 454929523 Z12.11 due for screening will refer. Chronic low back pain 27 5989723 M54.50 will refer to [facility] for further eval. Thoracic back pain 90643 8004 M54.6 Menopausal flushing 1983 83739 N95.1 does not want hormone therapy, has tried OTC remedies. [id number] Rob Valencia MD Main Office [address] [facility] [address] [facility] [place] [address] 08/04/2024 15:01:10 08/04/2024 15:45:27 Thoracic back pain 888786488 M54.6 Atypical for cardiac pain and type of symptoms along with exam findings raise concern for chest wall pain vs asthma/ple urisy vs GERD vs FMS. Consider imaging if no relief with below. Advised to call if symptoms change. Gastroesop hageal reflux disease 329779752 K21.9 Tried H2B but used inconsiste ntly, will see if PPI is more effective. Costal chondritis 061595 04 M94.0 See if prednisone helps with this or possible asthma etiology. Health Concerns Section Related Observation LastModified by Organization Detai ls LastModified Time None Recorded Concern Status LastModified by Organization Details LastModified Time None Recorded Advance Directives Directive None Recorded Payers Encounter Date Sequence Insurance Name Policy Number Policy Goodrich Covered Member ID Goodrich Member ID Guarantor Name 11/20/[address] [place] [address]) [id number] Pauly Rodriguez [id number] Pauly Rodriguez 12/31/2022 1 [facility]) [id number] Pauly Rodriguez [id number] Pauly Rodriguez 01/08/[address] [place] [address]) [id number] Pauly Rodriguez [id number] Pauly Rodriguez 01/14/[address] [place] [address]) [id number] Pauly Rodriguez [id number] Pauly Rodriguez 08/04/[address] [place] [address]) [id number] Sinan [id number] Pauly Rodriguez Notes Date Note Type Note Provider Name and Address Organization Details Recorded Time 11/20/2022 text/html Throat PainRepor tracey bypatient.Notes:Presen ts for sx sore throat, ear pain, sinus pain/ pressure, + coughing with phlegm- yellow/ bloody unclear if fever due to hot flashes. + chills, feels tired.using mucinex but no relief. no sick contacts MATTY Beebe [address] [facility] [address], [place], [address], [facility] 11/20/2022 15:07:31 12/31/2022 text/html Musculoskeletal PainReported bypatient.Location:rica [...] started yesterday 12/30. 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 Pt does have a histroy of upper back spasms. Pt has been taking Ibuprofen (800mg every 6 hours) and using her muscle relaxers which do help. LUBNA CANO MD [address] [address], [place], [address], [facility] 12/31/2022 12:37:39 01/08/2023 text/html Generic HPI TemplateReported bypatient.Notes:47 year old female for annual well visit.Moderate persistent asthma followed by pulmonary, on Breo and Symbicort, Albuterol PRN> Fibromyalgia followed by candy attendant, on muscle relaxants PRN and lidocaine patch. Used to take pregabalin as well.Family h/o colo cancer , thyroid disease, Lupus in sister. NO prior colonoscopy. 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 Pt. was referred to endo at [facility] and had biopsy done which was benign. Her TSH was also normal.BMI is 24.9. Vaccines are up to date. Sees SLUBBER MACHINE OPERATOR and has mammogram yearly. NO records in chart. Michaelle Wallace PA-C [address] [facility] [address], [place], [address], [facility] 01/08/2023 15:11:26 01/14/2024 text/html Generic HPI TemplateReported bypatient.Notes:Presen ts for PE, no concerns. Has been having back pain- negative Xray, pain is everywhere, + numbness and tingling. XR showed degenerative disc disease. MATTY Beebe [address] [facility] [address], [place], [address], [facility] 01/14/2024 15:46:12 08/04/2024 text/html 48y/o with FMS h aving left sided non exertional midline chest pain for a few days. Starts at sternum then radiates posteriorly L>R. Happening with supine positioning. Has history of asthma and GERD. Under a lot of stress since her mother's recent passing in hospice care. Rob Valencia MD [address] [facility] [address], [place], [address], [facility] 08/05/2024 16:37:35 OBGyn Episode No OBEpisode recorded.
== END 2024-08-21 07:25 | disposition home or self-care (01) ==
LOC: HO.LNP 07:24
PROVIDERS: PCP Registered Nurse; Visit Provider Obstetrics & Gynecology
DX: R87.610 Atypical squamous cells of undetermined significance on cytologic smear of cervix (ASC-US) (principal)
CPT/HCPCS: 57454; 81025; 88305

== ENCOUNTER 2024-08-21 07:24 | Outpatient (AMB) | payer OTHER, SELFPAY ==
--- NOTE | 2024-08-21 07:25 | MHC.OFFVIS ---
Vital Signs 08/21/24 07:33 Height 5 ft 7 in Weight 153 lb BMI 24.0 BP 118/76 Intake Visit Reasons: Colposcopy Camp Recreation Specialist Required: No Information Interpreted: non-clinical & clinical Supervisor Brine: Supervisor Brine Present (Gita ALANIS) Accompanied by: Self / Same As Patient Allergies No Known Allergies Allergy (Verified 08/21/24 07:34) Post menopausal: No HPI Comments Details: Presenting for abnormal Pap smear ascus/HPV negative. PFS Medical History Atypical squamous cells of undetermined significance (ASC-US) on cervical Pap smear PMB (postmenopausal bleeding) Pelvic pain Hx of thromboembolism Multinodular thyroid Asthma Fibromyalgia Surgical History Hx of ultrasound guided needle biopsy History of endometrial ablation Hx of bilateral breast reduction surgery History of tubal ligation History of surgery H/O LEEP Family History Father HTN (hypertension) Diabetes mellitus Mother High cholesterol Thyroid disease Lung cancer Maternal Grandfather Cancer Maternal Grandmother Cancer Paternal Grandmother Colon cancer Maternal Aunt Breast cancer Social History Household Members: Spouse Housing: House Alcohol intake: never Patient Tobacco Use Status: Never used Tobacco Second Hand Smoke Exposure: No Current occupational status: employed 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 We thoroughly discussed the procedure itself, including its details, alternatives, and all associated risks. This included but not limited to the following complications such as bleeding, infection, and injury to the vagina, bladder, and vessels, as well as the potential need for transfusion with all its associated risks. Subsequently, the patient sign the consent. Pap smear result: Ascus/HPV negative Procedure: During the procedure, the following steps were performed: A speculum was inserted, and acetic acid was applied. Colposcopy was conducted, allowing visualization of the transformation zone. Acetowhite lesions were identified at the 5+ 7+ 12 o'clock position. Cervical biopsies were obtained from the 5+ 7+ 12 o'clock position, followed by an endocervical curettage (ECC). Vaginoscopy of the upper vagina revealed no evidence of aceto-white lesions. Hemostasis was achieved using Monsel solution, and the patient tolerated the procedure well. Post-Procedure Instructions: The patient was advised to promptly contact the office or the after hours answering service or go to the emergency room if experiencing a temperature exceeding 100.4?F, abdominal pain, nausea/vomiting, or bleeding. Additionally, the patient was instructed to abstain from vaginal intercourse and bathtub use. The patient confirmed understanding of these instructions. Discharge Instructions: The patient was instructed to schedule a follow-up appointment in 2 weeks for further evaluation and management. Please note that this note was generated using a voice recognition program, and errors may have occurred during repairer and checker. [id number] of cervix including upper vagina with biopsy and ECC Procedure code (CPT) selection complete Results AMB Test Urine AMB Test Urine Negative Last Edit by Gita Owen CMA on 08/21/24 07:36 Assessment & Plan Assessment & Plan (1) ASCUS of cervix with negative high risk HPV: Code(s): R87.610 - Atypical squamous cells of undetermined significance on cytologic smear of cervix (ASC-US) Category: Medical Plan: Discussed with the patient the result of her abnormal pap, its significance, risk of progression, persistence, and regression. the false positive/negative rate of a Pap smear as a screening test in detecting cervical cancer and the indication for a diagnostic test -colposcopy, biopsy, endocervical curettage. The patient verbalized understanding and agreed with the plan, all questions answered. Colpo biopsy ECC done, see procedure note Orders: Orders AMB HCG Urine Test Today Z32.02 - Encounter for test, result negative AMB Colposcopy Today R87.610 - Atypical squamous cells of undetermined significance on cytologic smear of cervix (ASC-US) Coding Level of Care Code Procedure Only Diagnoses ASCUS of cervix with negative high risk HPV R87.610 CPT Codes Colposcopy - CPT: 45525-Mcozoycec of cervix including upper vagina with biopsy and ECC ([id number])
[2024-08-21 07:33] VITALS: BP 118/76; BMI 24.0
== END 2024-08-21 08:32 | disposition home or self-care (01) ==
LOC: HO.HWS 07:24
PROVIDERS: PCP Registered Nurse; Visit Provider Obstetrics & Gynecology
DX: R87.610 Atypical squamous cells of undetermined significance on cytologic smear of cervix (ASC-US) (principal); Z32.02 Encounter for pregnancy test, result negative
CPT/HCPCS: 57454

== ENCOUNTER 2024-09-08 15:55 | Outpatient (AMB) | payer OTHER, SELFPAY ==
--- NOTE | 2024-09-08 15:56 | MHC.OFFVIS ---
Intake Visit Reasons: colpo result Allergies No Known Allergies Allergy (Verified 09/08/24 15:57) HPI Comments Details: Presenting post colpo for follow-up. The patient is doing well with no complaints. The pathology showed the following: A. Endocervix, curettage: Endocervical glandular and squamous epithelium with reactive and atrophic changes; negative for dysplasia. B. Cervix, 5:00, biopsy: Squamous mucosa with inflammation and reactive and atrophic changes; negative for dysplasia; no endocervical glandular mucosa present. C. Cervix, 7:00, biopsy: Squamous mucosa with inflammation and reactive and atrophic changes; negative for dysplasia; no endocervical glandular mucosa present. D. Cervix, 12:00, biopsy: Squamous epithelium with focal atypia (see comment); no endocervical glandular mucosa present. Comment: (D): The focal atypia is insufficient for an unequivocal diagnosis of low-grade dysplasia. There is no evidence of high-grade dysplasia. The patient's previous Pap test ([id number]) concurs with the current biopsy [facility] Medical History Atypical squamous cells of undetermined significance (ASC-US) on cervical Pap smear PMB (postmenopausal bleeding) Pelvic pain Hx of thromboembolism Multinodular thyroid Asthma Fibromyalgia Surgical History Hx of ultrasound guided needle biopsy History of endometrial ablation Hx of bilateral breast reduction surgery History of tubal ligation History of surgery H/O LEEP Family History Father HTN (hypertension) Diabetes mellitus Mother High cholesterol Thyroid disease Lung cancer Maternal Grandfather Cancer Maternal Grandmother Cancer Paternal Grandmother Colon cancer Maternal Aunt Breast cancer Social History Household Members: Spouse Housing: House Alcohol intake: never Patient Tobacco Use Status: Never used Tobacco Second Hand Smoke Exposure: No Current occupational status: employed 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 Sexual orientation: Straight/Heterosexual Gender identity: Female Review of Systems Const All systems reviewed & are unremarkable except as noted in HPI and below Reports as per HPI and Reports no additional complaints GI Reports no additional complaints Reports no additional complaints Assessment & Plan Assessment & Plan (1) ASCUS of cervix with negative high risk HPV: Code(s): R87.610 - Atypical squamous cells of undetermined significance on cytologic smear of cervix (ASC-US) Category: Medical Plan: Discussed with the patient the pathology results of the colposcopy biopsies & endocervical curettage ( focus insufficient for mild Dysplasia with no evidence of high-grade dysplasia). Discussed with the patient the sensitivity specificity, positive and negative predictive value in detecting cervical cancer in addition discussed the regression, persistence and progression rates. Recommended co-testing in 12 months, if cytology and or HPV are abnormal will proceed was colposcopy biopsy and endocervical curettage. Instructions given to the patient to schedule a co test appointment in 1 year. All questions answered the patient verbalized understanding. Coding Level of Care Code Est Pt Level 3 (00301) Diagnoses ASCUS of cervix with negative high risk HPV R87.610
--- NOTE | 2024-09-08 15:56 | MHC.OFFVIS ---
Intake Visit Reasons: colpo result Stacker Attendant: Stacker Attendant Present (Tessa) Accompanied by: Self / Same As Patient Allergies No Known Allergies Allergy (Verified 09/08/24 15:57) PFSH Medical History Atypical squamous cells of undetermined significance (ASC-US) on cervical Pap smear PMB (postmenopausal bleeding) Pelvic pain Hx of thromboembolism Multinodular thyroid Asthma Fibromyalgia Surgical History Hx of ultrasound guided needle biopsy History of endometrial ablation Hx of bilateral breast reduction surgery History of tubal ligation History of surgery H/O LEEP Family History Father HTN (hypertension) Diabetes mellitus Mother High cholesterol Thyroid disease Lung cancer Maternal Grandfather Cancer Maternal Grandmother Cancer Paternal Grandmother Colon cancer Maternal Aunt Breast cancer Social History Household Members: Spouse Housing: House Alcohol intake: never Patient Tobacco Use Status: Never used Tobacco Second Hand Smoke Exposure: No Current occupational status: employed 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
--- OUTSIDE RECORDS SUMMARY | 2024-09-08 19:34 | XMS_ITS | Data Portability ---
Author Organization [facility], Main Office Address [address] [facility] [address] [place] [id number] Care Team Providers Care Cylinder Checker Name Role Phone [facility] Early Childhood Aide Classroom [facility] Gynecologi st KATT LOPEZ [...] Go To The Location Of Their Choice, [id number] 01/18/2024 06:08:30 iron + TIBC + ferrit in, serum 2023 024 LATA [facility] (Centralized Electronic Ordering - All Locations), Patient Can Go To The Location Of Their Choice, [id number] 01/18/2024 06:08:27 HbA1c (hemog lobin A1c), blood 2023 024 LATA [facility] (Centralized Electronic Ordering - All Locations), Patient Can Go To The Location Of Their Choice, [id number] 01/18/2024 06:08:31 vitami n D, 25-hyd bettie, total, serum 2023 024 LATA [facility], [address], [place], [address], 01/18/2024 06:08:31 lipid panel, serum 2022 023 LATA [facility], [address], [address], 01/08/2023 15:04:45 rapid flu (A+B) 2022 023 LATA In-Office Order, Internal Use Only DO Not Attach Compendium DO Not Attach Compendium, Do Not Delete/merge, [id number] 11/20/2022 15:02:36 strep group A, DNA, swab 2022 023 LATA In-Office Order, Internal Use Only DO Not Attach Compendium DO Not Attach Compendium, Do Not Delete/merge, [id number] 11/20/2022 14:52:17 Referral spine center referr al - upper and lower back pain, XR 2022 showed modera te degene rative change s. 2023 024 fina [facility], [address], [place], [address], 07/13/2024 09:13:02 spine center referr al - upper and lower back pain, XR 2022 showed modera te degene rative change s. 2023 024 fina [facility], [address] [facility], [place], [address], 07/13/2024 09:13:03 gastro entero logist referr al - Needs colon cancer screen ing 2023 024 alida [facility], [address] [facility], [address], [place], [address], 02/13/2024 14:50:21 gyneco logist referr al 2022 023 LATA Not available 06/12/2023 15:07:32 physic al therap ist referr al - lumbar and right hip 2022 023 [email or web address] Not available 07/17/2023 13:05:27 Procedures cerume n remova l (PROC) 2022 023 LATA In-Office Order, Internal Use Only DO Not Attach Compendium DO Not Attach Compendium, Do Not Delete/merge, [id number] 01/08/2023 16:42:22 Surgeries None record ed. Imaging MAMMO, screen ing, bilate ral 2022 023 LATA Not available 06/05/2023 15:07:59 XR, lumbos acral spine, 2 or 3 view 2022 023 [email or web address] Not available 01/14/2023 15:19:17 XR, hip, unilat eral, 2 or 3 view 2022 023 LATA Not available 12/31/2022 11:22:05 Medication Orders omepra zole 20 mg capsul edaniel releas e 2024 025 christina [id number], [address] [facility] [place], [address], 08/05/2024 16:29:15 predni sone 20 mg tablet 2024 025 LATA [id number], [address] [place], [address], 08/04/2024 15:40:50 predni sone 20 mg tablet 2022 023 [id number], [address] [place], [address], 08/04/2024 15:14:31 predni sone 20 mg tablet 2022 023 [id number], [address] [place], [address], 08/04/2024 15:14:31 Patient TargetsNo targets recorded. Patient Instructions Encounter Date Encounter Id Patient Instructions Last Modified By Organization Details Last Modified Time 11/20/2022 [id number] To call or retur n for worsening or concerns [email or web address] Not available 11/20/2022 14:32:56 01/14/2024 [id number] low back pain: exercises jthabet Not available [...] concerns jthabet Not available 01/14/2024 13:30:42 08/04/2024 [id number] healthy upper ba ck: exercises [email or web address] Not available 08/04/2024 15:40:47 gastroesophageal reflux disease (GERD): care instructions awychowski Not available 08/04/2024 15:40:47 costochondritis: care instructions awychowski Not available 08/04/2024 15:40:47 Reason for Referral Physical Therapist Referral for Pain in right hip joint lumbar and right hip Referring Physician: Lubna Cano, Family Medicine, Encounter Date: 12/31/2022 Activities Leader Referral for Sc reening for malignant neoplasm of cervix Referring Physician: Michaelle Wallace, Internal Medicine, Encounter Date: 01/08/2023 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 Referring Physician: Katt Lopez [facility] Medicine, Encounter Date: 01/14/2024 Spine Center Referral for Th oracic back pain upper and lower back pain, XR 2022 showed moderate degenerative changes. Referring Physician: Katt Lopez [facility] Medicine, Encounter Date: 01/14/2024 Results Created Date Observation Date Name Description Value Unit Range Abnormal Flag Note LastModifiedBy Organization Detail LastModifiedTime 11/21/1911/20/2022 rapid flu (A+B) Flu A negati ve Not Available In-Office Order Internal Use Only DO Not Attach Compendium DO Not Attach Compendium, Do Not Delete/merge, [id number] 11/20/2022 14:32:23 11/21/19 23 11/20/2022 rapid flu (A+B) Flu B negati ve Not Available In-Office Order Internal Use Only DO Not Attach Compendium DO Not Attach Compendium, Do Not Delete/merge, [id number] 11/20/2022 14:32:23 11/21/19 23 11/20/2022 strep group A, DNA, swab ID NOW Strep A 2 (rapid molecular test) negati ve Not Available In-Office Order Internal Use Only DO Not Attach Compendium DO Not Attach Compendium, Do Not Delete/merge, [id number] 11/20/2022 14:32:27 01/09/20 23 01/08/2023 cerum en remov al (PROC ) done by Bolivar lee Not Available In-Office Order Internal Use Only DO Not Attach Compendium DO Not Attach Compendium, Do Not Delete/merge, [id number] 01/08/2023 15:05:19 01/17/20 24 01/18/2024 FE+TI BC+FE R iron bind.cap.(TI BC) 303 ug/dL 250-45 0 normal Not Available [facility] ([facility]) [address] [place], [address], 01/18/2024 06:08:27 01/17/20 24 01/18/2024 FE+TI BC+FE R UIBC 234 ug/dL 131-42 5 normal Not Available [facility] ([facility]) [address] [place], [address], 01/18/2024 06:08:27 01/17/20 24 01/18/2024 FE+TI BC+FE R iron 69 ug/dL 27-159 normal Not Available [facility] ([facility]) [address] [place], [address], 01/18/2024 06:08:27 01/17/20 24 01/18/2024 FE+TI BC+FE R iron saturation 23 % 15-55 normal Not Available [facility] ([facility]) [address] [place], [address], 01/18/2024 06:08:27 01/17/20 24 01/18/2024 FE+TI BC+FE R ferritin 134 NG/mL 15-150 normal Not Available [facility] ([facility]) [address] [place], [address], 01/18/2024 06:08:27 01/17/20 24 01/17/2024 TSH+F REE T4 TSH 2.100 uIU/m L 0.450- 4.500 normal Not Available [facility] ([facility]) [address] [place], [address], 01/18/2024 06:08:28 01/17/20 24 01/17/2024 TSH+F REE T4 T4,free(dire ct) 0.83 NG/dL 0.82-1 .77 normal Not Available [facility] ([facility]) [address] [facility], [place], [address], 01/18/2024 06:08:28 01/17/20 24 01/18/2024 CBC WITH DIFFE RENTI AL/PL ATELE T WBC 7.0 x10e3 /uL 3.4-10 .8 normal Not Available [facility] ([facility]) [address] [facility], [place], [address], 01/18/2024 06:08:28 01/17/20 24 01/18/2024 CBC WITH DIFFE RENTI AL/PL ATELE T RBC 4.68 x10e6 /uL 3.77-5 .28 normal Not Available [facility] ([facility]) [address] [facility], [place], [address], 01/18/2024 06:08:28 01/17/20 24 01/18/2024 CBC WITH DIFFE RENTI AL/PL ATELE T hemoglobin 13.8 g/dL 11.1-1 5.9 normal Not Available [facility] ([facility]) [address] [place], [address], 01/18/2024 06:08:28 01/17/20 24 01/18/2024 CBC WITH DIFFE RENTI AL/PL ATELE T hematocrit 43.3 % 34.0-4 6.6 normal Not Available [facility] ([facility]) [address] [place], [address], 01/18/2024 06:08:28 01/17/20 24 01/18/2024 CBC WITH DIFFE RENTI AL/PL ATELE T MCV 93 fL 79-97 normal Not Available [facility] ([facility]) [address] [place], [address], 01/18/2024 06:08:28 01/17/20 24 01/18/2024 CBC WITH DIFFE RENTI AL/PL ATELE T MCH 29.5 pg 26.6-3 3.0 normal Not Available [facility] ([facility]) [address] [facility], [place], [address], 01/18/2024 06:08:28 01/17/20 24 01/18/2024 CBC WITH DIFFE RENTI AL/PL ATELE T MCHC 31.9 g/dL 31.5-3 5.7 normal Not Available [facility] ([facility]) [address] [facility], [place], [address], 01/18/2024 06:08:28 01/17/20 24 01/18/2024 CBC WITH DIFFE RENTI AL/PL ATELE T RDW 12.7 % 11.7-1 5.4 Not Available [facility] ([facility]) [address] [place], [address], 01/18/2024 06:08:28 01/17/20 24 01/18/2024 CBC WITH DIFFE RENTI AL/PL ATELE T platelets 268 x10e3 /uL 150-45 0 normal Not Available [facility] ([facility]) [address] [place], [address], 01/18/2024 06:08:28 01/17/20 24 01/18/2024 CBC WITH DIFFE RENTI AL/PL ATELE T neutrophils 51 % not estab. normal Not Available [facility] ([facility]) [address] [place], [address], 01/18/2024 06:08:28 01/17/20 24 01/18/2024 CBC WITH DIFFE RENTI AL/PL ATELE T lymphs 38 % not estab. normal Not Available [facility] ([facility]) [address] [place], [address], 01/18/2024 06:08:28 01/17/20 24 01/18/2024 CBC WITH DIFFE RENTI AL/PL ATELE T monocytes 7 % not estab. normal Not Available [facility] ([facility]) [address] [place], [address], 01/18/2024 06:08:28 01/17/20 24 01/18/2024 CBC WITH DIFFE RENTI AL/PL ATELE T eos 3 % not estab. normal Not Available [facility] ([facility]) [address] [place], [address], 01/18/2024 06:08:28 01/17/20 24 01/18/2024 CBC WITH DIFFE RENTI AL/PL ATELE T basos 1 % not estab. normal Not Available [facility] ([facility]) [address] [place], [address], 01/18/2024 06:08:28 01/17/20 24 01/18/2024 CBC WITH DIFFE RENTI AL/PL ATELE T immature cells UTILITY AIDE Not Available [facility] ([facility]) [address] [place], [address], 01/18/2024 06:08:28 01/17/20 24 01/18/2024 CBC WITH DIFFE RENTI AL/PL ATELE T neutrophils (absolute) 3.6 x10e3 /uL 1.4-7. 0 normal Not Available [facility] ([facility]) [address] [place], [address], 01/18/2024 06:08:28 01/17/20 24 01/18/2024 CBC WITH DIFFE RENTI AL/PL ATELE T lymphs (absolute) 2.7 x10e3 /uL 0.7-3. 1 normal Not Available [facility] ([facility]) [address] [place], [address], 01/18/2024 06:08:28 01/17/20 24 01/18/2024 CBC WITH DIFFE RENTI AL/PL ATELE T monocytes(ab solute) 0.5 x10e3 /uL 0.1-0. 9 normal Not Available [facility] ([facility]) [address] [facility], [place], [address], 01/18/2024 06:08:28 01/17/20 24 01/18/2024 CBC WITH DIFFE RENTI AL/PL ATELE T eos (absolute) 0.2 x10e3 /uL 0.0-0. 4 normal Not Available [facility] ([facility]) [address] [facility], [place], [address], 01/18/2024 06:08:28 01/17/20 24 01/18/2024 CBC WITH DIFFE RENTI AL/PL ATELE T baso (absolute) 0.1 x10e3 /uL 0.0-0. 2 normal Not Available [facility] ([facility]) [address] [facility], [place], [address], 01/18/2024 06:08:28 01/17/20 24 01/18/2024 CBC WITH DIFFE RENTI AL/PL ATELE T immature granulocytes 0 % not estab. Not Available [facility] ([facility]) [address] [facility], [place], [address], 01/18/2024 06:08:28 01/17/20 24 01/18/2024 CBC WITH DIFFE RENTI AL/PL ATELE T immature grans (abs) 0.0 x10e3 /uL 0.0-0. 1 Not Available [facility] ([facility]) [address] [place], [address], 01/18/2024 06:08:28 01/17/20 24 01/18/2024 CBC WITH DIFFE RENTI AL/PL ATELE T NRBC UTILITY AIDE Not Available [facility] ([facility]) [address] [place], [address], 01/18/2024 06:08:28 01/17/20 24 01/18/2024 CBC WITH DIFFE RENTI AL/PL ATELE T hematology comments: UTILITY AIDE Not Available [facility] ([facility]) [address] [place], [address], 01/18/2024 06:08:28 01/17/20 24 01/17/2024 COMP. METAB OLIC PANEL (14) glucose 94 mg/dL 70-99 normal Not Available [facility] ([facility]) [address] [facility], [address], 01/18/2024 06:08:29 01/17/20 24 01/17/2024 COMP. METAB OLIC PANEL (14) BUN 12 mg/dL 6-24 normal Not Available [facility] ([facility]) [address] [facility], [address], 01/18/2024 06:08:29 01/17/20 24 01/17/2024 COMP. METAB OLIC PANEL (14) creatinine 0.89 mg/dL 0.57-1 .00 normal Not Available [facility] ([facility]) [address] [facility], [address], 01/18/2024 06:08:29 01/17/20 24 01/17/2024 COMP. METAB OLIC PANEL (14) eGFR 79 mL/mi n/1.7 3 >59 normal Not Available [facility] ([facility]) [address] [facility] [place], [address], 01/18/2024 06:08:29 01/17/20 24 01/17/2024 COMP. METAB OLIC PANEL (14) BUN/creatini ne ratio 13 9-23 normal Not Available [facility] ([facility]) [address] [facility] [place], [address], 01/18/2024 06:08:29 01/17/20 24 01/17/2024 COMP. METAB OLIC PANEL (14) sodium 142 mmol/ L 134-14 4 normal Not Available [facility] ([facility]) [address] [facility] [place], [address], 01/18/2024 06:08:29 01/17/20 24 01/17/2024 COMP. METAB OLIC PANEL (14) potassium 4.2 mmol/ L 3.5-5. 2 normal Not Available [facility] ([facility]) [address] [facility] [place], [address], 01/18/2024 06:08:29 01/17/20 24 01/17/2024 COMP. METAB OLIC PANEL (14) chloride 107 mmol/ L 96-106 above high normal Not Available [facility] ([facility]) [address] [facility] [place], [address], 01/18/2024 06:08:29 01/17/20 24 01/17/2024 COMP. METAB OLIC PANEL (14) carbon dioxide, total 21 mmol/ L 20-29 normal Not Available [facility] ([facility]) [address] [facility] [place], [address], 01/18/2024 06:08:29 01/17/20 24 01/17/2024 COMP. METAB OLIC PANEL (14) calcium 9.3 mg/dL 8.7-10 .2 normal Not Available [facility] ([facility]) [address] [facility] [place], [address], 01/18/2024 06:08:29 01/17/20 24 01/17/2024 COMP. METAB OLIC PANEL (14) protein, total 7.7 g/dL 6.0-8. 5 normal Not Available [facility] ([facility]) [address] [facility] [place], [address], 01/18/2024 06:08:29 01/17/20 24 01/17/2024 COMP. METAB OLIC PANEL (14) albumin 4.4 g/dL 3.9-4. 9 normal Not Available [facility] ([facility]) [address] [facility] [place], [address], 01/18/2024 06:08:29 01/17/20 24 01/17/2024 COMP. METAB OLIC PANEL (14) globulin, total 3.3 g/dL 1.5-4. 5 Not Available [facility] ([facility]) [address] [facility], [address], 01/18/2024 06:08:29 01/17/20 24 01/17/2024 COMP. METAB OLIC PANEL (14) bilirubin, total 0.3 mg/dL 0.0-1. 2 normal Not Available [facility] ([facility]) [address] [facility], [address], 01/18/2024 06:08:29 01/17/20 24 01/17/2024 COMP. METAB OLIC PANEL (14) alkaline phosphatase 117 IU/L 44-121 normal Not Available [facility] ([facility]) [address] [facility] [place], [address], 01/18/2024 06:08:29 01/17/20 24 01/17/2024 COMP. METAB OLIC PANEL (14) AST (SGOT) 23 IU/L 0-40 normal Not Available [facility] ([facility]) [address] [facility], [address], 01/18/2024 06:08:29 01/17/20 24 01/17/2024 COMP. METAB OLIC PANEL (14) ALT (SGPT) 32 IU/L 0-32 normal Not Available [facility] ([facility]) [address] [facility], [address], 01/18/2024 06:08:29 01/17/20 24 01/17/2024 LIPID PANEL cholesterol, total 186 mg/dL 100-19 9 normal Not Available [facility] ([facility]) [address] [facility], [address], 01/18/2024 06:08:30 01/17/20 24 01/17/2024 LIPID PANEL triglyceride s 132 mg/dL 0-149 normal Not Available [facility] ([facility]) [address] [facility], [address], 01/18/2024 06:08:30 01/17/20 24 01/17/2024 LIPID PANEL HDL cholesterol 48 mg/dL >39 normal Not Available [facility] ([facility]) [address] [place], [address], 01/18/2024 06:08:30 01/17/20 24 01/17/2024 LIPID PANEL VLDL cholesterol elliott 24 mg/dL 5-40 Not Available [facility] ([facility]) [address] [facility], [address], 01/18/2024 06:08:30 01/17/20 24 01/17/2024 LIPID PANEL LDL chol calc ([facility]) 114 mg/dL 0-99 above high normal Not Available [facility] ([facility]) [address] [facility], [address], 01/18/2024 06:08:30 01/17/20 24 01/17/2024 LIPID PANEL LDL calc comment: UTILITY AIDE Not Available [facility] ([facility]) [address] [facility], [place], [address], 01/18/2024 06:08:30 01/17/20 24 01/18/2024 VITAM IN B12 AND FOLAT E vitamin B12 800 pg/mL 232-12 45 normal Not Available [facility] ([facility]) [address] [facility] [place], [address], 01/18/2024 06:08:30 01/17/20 24 01/18/2024 VITAM IN B12 AND FOLAT E folate (folic acid), serum 15.0 NG/mL >3.0 normal A serum folat e zachary ntrat ion of less than 3.1 ng/mL is consi dered to repre sent clini elliott defic iency . Not Available [facility] ([facility]) [address] [facility] [place], [address], 01/18/2024 06:08:30 01/17/20 24 01/18/2024 HEMOG LOBIN A1C hemoglobin A1C 5.6 % 4.8-5. 6 normal Predi abete s: 5.7 - 6.4 Diabe shan: >6.4 Glyce manuel contr ol for adult s with diabe shan: <7.0 Not Available [facility] ([facility]) [address] [facility], [place], [address], 01/18/2024 06:08:31 01/17/20 24 01/18/2024 VITAM IN [...] um and D. Uzma arzate [place]: The [facility] . 2. Delilah noel MF, Jonah ey NC, Tawanna off-F errar i PERRY, et al. Evalu ation , treat ment, and preve ntion of vitam in D defic iency : an Endoc rine Socie ty clini elliott pract ice guide line. JCEM. 2010; 96(7) :1911 -30. Not Available [facility] ([facility]) [address] [facility], [place], [address], 01/18/2024 06:08:31 01/01/20 23 12/31/2022 XR, hip, [...] tissue s. IMPRES RAUDEL: Normal . WSN: [id number] Orderi ng Physic erin: Paul Eric ie Dictat ed By: Mariam Sullivan MD Dictat ed Date/T jesu: 11:18 a Review ed By: Peg roland MD, Mariam gardner Signed By: Peg roland MD, Mariam gardner Signed Date/T jesu: 11:18 am Transc ribed By: JACK Transc ribed Date/T jesu: 11:18 am Patien t Class: Outpat ient [facility] (Outpt Imaging) [address] [place] [address], [address], 01/01/2023 08:02:33 01/01/20 23 12/31/2022 XR, lumbo [...] ng. 2. Mild stool retent ion. WSN: [id number] Orderi ng Physic erin: Paul Eric ie Dictat ed By: Peg roland MD, Mariam gardner Dictat ed Date/T jesu: 11:23 a Review ed By: Peg roland MD, Mariam gardner Signed By: Peg roland MD, Mariam gardner Signed Date/T jesu: 11:23 am Transc ribed By: CSB Transc ribed Date/T jesu: 11:20 am Patien t Class: Outpat ient [facility] (Outpt Imaging) [address], [place], [address], 01/14/2023 15:19:17 06/05/20 23 05/14/2023 MAMMO , scree jake, bilat eral No observ ation record ed. [email or web address] [address] [place], [address], 06/05/2023 15:23:06 06/12/20 23 06/12/2023 XR, hand No observ ation record ed. [address] (Medical Records) [address] [facility] [place], [address], 01/03/2024 15:44:16 07/09/19 24 07/05/2023 US, young c wall No observ ation record ed. [address] (Medical Records) [address] [facility] [place], [address], 07/09/2023 10:17:40 07/11/19 24 07/10/2023 Thyro id Biops y, Percu taneo us Core Needl e (PROC ) No observ ation record ed. [address] (Medical Records) [address] [facility] [place], [address], 07/11/2023 19:41:10 05/26/20 24 05/19/2024 MAMMO , scree jake, bilat eral No observ ation [facility] ed. [email or web address] [address] [place], [address], 05/26/2024 08:54:37 07/30/1907/29/2024 US, pelvi s, trans abdom inal + trans vagin al No observ ation record ed. [address] (Medical Records) [address] [facility] [place], [address], 08/14/2024 08:47:51 Result Notes None recorded. Problems Name Problem SNOMED Code Status Onset Date Resolution Date Notes Provider Name and Address Organization Details Recorded Time Fibromyalgi a 270655868 Active 2021 Michaelle Wallace PA-C [address], [place], [address], [facility] 2 14:43:17 Moderate persistent asthma 542893324 Active 2021 Michaelle Wallace PA-C [address], [place], [address], [facility] 2 15:12:12 Family history of Thyroid disorder 003002448 Active 2021 Michaelle Wallace PA-C [address] [facility] [address], [place], [address], [facility] 2 15:13:09 Multinodula r goiter 439907899 Active 2021 Michaelle Wallace PA-C [address], [place], [address], [facility] 2 09:03:54 Palpitation s 76539498 Active 2022 Michaelle Wallace PA-C [address] [facility] [address], [place], [address], [facility] 3 11:23:20 Acute pharyngitis 549914747 Completed 202201/08/2023 Rudy Painting MA null, [facility] 3 14:32:44 Fatigue 96669145 Active 2023 MATTY Beebe [address] [facility] [address], [place], [address], [facility] 4 13:30:16 Hyperlipide blanche 33096142 Active 2023 MATTY Beebe [address] [facility] [address], [place], [address], [facility] 4 13:30:34 Vitamin D deficiency 91567777 Active 2023 Katt Lopez [facility] [address] [facility] [address], [place], [address], [facility] 4 15:06:17 Anemia 874995082 Active 2023 [facility] [address] [facility] [address], [place], [address], [facility] 4 15:06:23 Impaired fasting glycemia 023558111 Active 2023 [facility] [address] [address], [place], [address], [facility] 4 15:07:04 Chronic low back pain 891814984 Active 2023 [facility] [address] [place] [address], [place], [address], [facility] 4 15:12:19 Thoracic back pain 843104110 Active 2023 Katt Lopez [facility] [address] [address], [place], [address], [facility] 4 15:12:27 Menopausal flushing 275828067 Active 2023 [facility] [address] [address], [place], [address], [facility] 4 15:44:36 Problem Notes None recorded. Procedures Surgical History Date Name Laterality Status Provider Name and Address Organization Details Recorded Time 05/14/20 23 Most Recent Mammogram completed Benita Haq [facility] 06/05/2023 15:23:00 05/14/20 23 Mammogram both breasts completed Benita Haq [facility] 06/05/2023 15:22:53 11/04/20 22 Date of Last Pap Smear completed Lori Bustos [facility] 04/25/2022 09:48:29 04/17/20 Endometrial Ablation completed Stephaniebenito Mel[place]agan [place] [facility] 01/05/2022 14:16:08 06/30/19 Breast Surgery completed Stephanie [facility]ende[facility]agan[place]LE [facility] 01/05/2022 14:16:08 06/17/19 Tubal Ligation completed Stephanie [place] [facility] [facility] 01/05/2022 14:16:08 Imaging Results Imaging Date Name Status LastModified by Organization Details LastModified Time 12/31/2022 XR, hip, unilateral, 2 or 3 view completed [facility] (Outpt Imaging) [address] [place], [address], 01/01/2023 08:02:33 12/31/2022 XR, lumbosacral spine, 2 or 3 view completed [facility] (Outpt Imaging) [address] [place], [address], 01/14/2023 15:19:17 05/14/2023 MAMMO, screening, bilateral completed [email or web address] [facility] [address] [place] [address] [place], [address], 06/05/2023 15:23:06 06/12/2023 XR, hand completed [email or web address] [facility] (Medical Records) [address] [place], [address], 01/03/2024 15:44:16 07/05/2023 [facility] [place] [address] (Medical Records[facility] [address] [place], [address], 07/09/2023 10:17:40 07/10/2023 Thyroid Biopsy, Percutaneous Core Needle (PROC) completed [address] (Medical Records) [address] [place], [address], 07/11/2023 19:41:10 05/19/2024 MAMMO, screening, bilateral [facility] [address] [place] [address] [place], [address], 05/26/2024 08:54:37 07/29/2024 US, pelvis, transabdominal + transvaginal completed [email or web address] [facility] (Medical Records) [address] [facility], [place], [address], 08/14/2024 08:47:51 Procedure Notes None recorded. Medical [...] Updated DateTime 3 165.74 cm 25.1 kg/m2 02793.4 4 g 82 /min 95 % 95 % 97.9 [degF] 117 mm[Hg] 78 mm[Hg] Ruma Mcnamara MA [facility] 3 14:22:10 Date Recorded Body height Body mass index (BMI) Body weight Oxygen saturation Oxygen saturation in Arterial blood by Pulse oximetry Heart rate Body temperature Systolic blood pressure Diastolic blood pressure Provider Name and Address Organization Details Last Updated DateTime 3 165.74 cm 25.4 kg/m2 04279.9 2 g 97 % 97 % 79 /min 98 [degF] 113 mm[Hg] 79 mm[Hg] Pam Rodgers MA [facility] 3 10:07:22 Date Recorded Body height Body mass index (BMI) Body weight Heart rate Oxygen saturation Oxygen saturation in Arterial blood by Pulse oximetry Body temperature Systolic blood pressure Diastolic blood pressure Provider Name and Address Organization Details Last Updated DateTime 3 165.74 cm 24.9 kg/m2 21349.4 5 g 75 /min 98 % 98 % 98 [degF] 108 mm[Hg] 68 mm[Hg] Rudy Painting [facility] 3 14:32:56 Date Recorded Body height Body mass index (BMI) Body weight Heart rate Oxygen saturation Oxygen saturation in Arterial blood by Pulse oximetry Body temperature Systolic blood pressure Diastolic blood pressure Provider Name and Address Organization Details Last Updated DateTime 4 165.74 cm 25.6 kg/m2 73475.8 2 g 77 /min 98 % 98 % 97.6 [degF] 97 mm[Hg] 64 mm[Hg] Laurence hart [facility] 4 14:47:35 Date Recorded Body height Body mass index (BMI) Body weight Heart rate Oxygen saturation Oxygen saturation in Arterial blood by Pulse oximetry Body temperature Systolic blood pressure Diastolic blood pressure Provider Name and Address Organization Details Last Updated DateTime 5 165.74 cm 25.7 kg/m2 23716.9 2 g 71 /min 99 % 99 % 97.6 [degF] 127 mm[Hg] 73 mm[Hg] Stephanie Huynh MA [facility] 5 15:23:28 Social History Question Answer Notes LastModified by Organizat ion Details LastModified Time Tobacco Smoking Status Never [facility] 14:16:05 What Is Your Level [...] not available 01/05/2022 What Is Your Occupation? [employer] Information not available 01/14/2024 Do You Take [...] available 14:15:55 Father Type 2 diabetes [facility] Not available 14:30:47 Mother Liver problem bradytone Not available 14:15:55 Mother Disorder of thyroid gland [facility] Not available 14:15:55 Mother [facility]idem [facility] Not available 14:31:11 Medical History Condition Response Fibromyalgia Y Asthma Y Gynecological History Statement/Question Response Menses Monthly N Date of Last Pap Smear 04/20/2022 Date of Last Colonoscopy Most Recent Mammogram 05/14/2023 Obstetrics History GPAL:G 0 P 0 0 0 0 Immunizations Vaccine Type Date Status Note Provider Nam e and Address Organization Details Recorded Time MMR 9 completed MIREILLE Apodaca [facility] 01/05/2022 14:23:52 Tdap 7 completed MIREILLE Apodaca [facility] 01/05/2022 14:23:52 COVID-19, mRNA, LNP-S, PF, 30 mcg/0.3 mL dose 1 completed MIREILLE Apodaca [facility] 01/05/2022 14:23:52 Hep B, adult 9 completed MIREILLE Apodaca [facility] 01/05/2022 14:23:52 COVID-19, mRNA, LNP-S, PF, 30 mcg/0.3 mL dose 1 completed MIREILLE Apodaca [facility] 01/05/2022 14:23:52 Influenza, split virus, quadrivalent, PF 1 completed MIREILLE Apodaca [facility] 01/05/2022 14:23:52 Influenza, split virus, quadrivalent, PF 9 completed MIREILLE Apodaca [facility] 01/05/2022 14:23:52 COVID-19, mRNA, LNP-S, PF, 30 mcg/0.3 mL dose 1 completed MIREILLE Apodaca, [facility] 01/05/2022 14:23:52 Hep B, adult 9 completed MIREILLE Apodaca, [facility] 01/05/2022 14:23:52 Influenza, split virus, quadrivalent, preservative 0 completed MIREILLE Apodaca [facility] 01/05/2022 14:23:52 Hep B, adult 9 completed MIRE[place]LE Apodaca, [facility] 01/05/2022 14:23:52 Influenza, MDCK, quadrivalent, PF 2 completed MIREILLE Alba [facility] 11/20/2022 14:16:38 COVID-19, mRNA, LNP-S, bivalent, PF, 30 mcg/0.3 mL dose 2 completed MIREILLE Alba [facility] 11/20/2022 14:16:38 Influenza, MDCK, quadrivalent, PF 3 completed [place]RE[place]LE Apodaca [facility] 08/04/2024 15:07:11 Influenza, split virus, trivalent, PF 4 [facility] 15:07:11 Past Encounters Encounter ID Performer Location Encounter Start Date Encounter Closed Date Diagnosis/Indication Diagnosis SNOMED-CT Code Diagnosis ICD10 Code Diagnosis Note [id number] Michaelle Wallace PA-C Main Office [address] [facility] [place] [address] 01/05/2022 14:03:27 01/05/2022 15:06:08 Adult health examination 389449365 Z00.00 recommend second COVID booster Fibromyalgia 181992373 M 77.7 f/u with rheumatolo gist Screening for malignant neoplasm of cervix 177004203 Z12.4 Screening for malignant neoplasm of breast 113284429 Z12.39 Screening for malignant neoplasm of colon 736950822 Z12.11 Hyperlipidemia 97442994 E78.5 Vitamin D deficiency 347 35902 E55.9 Thyroid nodule 266270339 E04.1 Single R. lobe nodule. Schedule ultrasound and labs. Moderate p ersistent asthma 234554240 J45.40 f/u with pulmonary. [id number] Michaelle Wallace PA-C Main Office [address] [facility] [address] [place] [address] 09/11/2022 10:49:03 09/11/2022 11:28:59 Palpitations 37865675 R00.2 check thyroid labs and bmp. Schedule echo cardiogram and refer to cardiology for an event monitor. PT. was advised to avoid excessive physical activity or caffeine. [id number] MATTY Beebe Main Office [address] [place] [address] 11/20/2022 14:05:57 11/20/2022 14:54:55 Fever 906084916 R50.9 flu negative A/B, likely viral illness, hydration, rest mucinex as needed, may start prednisone burst. Acute pharyngitis 960042 003 J02.9 strep negative. Moderate p ersistent asthma 445177405 J45.40 using her inhalers and neb but coughing persists. start prednisone burst, hydration, rest, continue mucinex as needed. Continue inhalers/ nebs as needed. If sx persist or worsen please call/ return. [id number] LUBNA CANO MD Main Office [address] [facility] [address] [place] [address] 12/31/2022 09:45:08 12/31/2022 10:23:46 Acute low back pain 980616670 M54.50 - pain located near the right [...] improvemen t -> to consider MRI and retirement benefits specialist Pain in ri ght hip joint 2963604914 37775 M25.551 - pt believes pain is coming from the hip but after history and exam believe is more likely coming from lumbar spine- for patient re-assuran ce ordered X-ray of the right hip for further evaluation [id number] Michaelle Wallace PA-C Main Office [address] [facility] [address] [place] [address] 01/08/2023 14:10:26 01/08/2023 15:30:12 Adult health examination 119779577 Z00.00 vaccines are up to date. Moderate p ersistent asthma 288292664 J45.40 f/u with pulmonary. Multinodular goiter 2375 03462 E04.2 f/u with endo yearly. Fibromyalgia 110026027 M 77.7 f/u with rheumatolo gist Screening for malignant neoplasm of breast 612225707 Z12.39 Screening for malignant neoplasm of cervix 410305810 Z12.4 Hyperlipidemia 61564356 E78.5 Impacted c erumen in right ear 0190514378 628770 H61.21 [id number] MATTY Beebe Main Office [address] [facility] [address] [place] [address] 01/14/2024 14:31:36 01/14/2024 15:24:24 Multinodular goiter 159322947 E04.2 sees endocrinol ogy yearly Moderate p ersistent asthma 192752387 J45.40 Fibromyalgia 198611861 M 77.7 Adult heal th examination 488155059 Z00.00 Mammo and pap UTD, april and may, needs colonoscop y will refer. pulm May 13. Fatigue 95836344 R53.83 Hyperlipidemia 89924552 E78.5 Vitamin D deficiency 347 69945 E55.9 Anemia 869660057 D64.9 Impaired f asting glycemia 095347990 R73.01 Screening for malignant neoplasm of colon 702957730 Z12.11 due for screening will refer. Chronic low back pain 27 8308240 M54.50 will refer to [facility] for further eval. Thoracic back pain 83062 8004 M54.6 Menopausal flushing 1983 51069 N95.1 does not want hormone therapy, has tried OTC remedies. [id number] Rob Valencia MD Main Office [address] [facility] [address] [facility] [place] [address] 08/04/2024 15:01:10 08/04/2024 15:45:27 Thoracic back pain 814211770 M54.6 Atypical for cardiac pain and type of symptoms along with exam findings raise concern for chest wall pain vs asthma/ple urisy vs GERD vs FMS. Consider imaging if no relief with below. Advised to call if symptoms change. Gastroesop hageal reflux disease 299965562 K21.9 Tried H2B but used inconsiste ntly, will see if PPI is more effective. Costal chondritis 598264 04 M94.0 See if prednisone helps with this or possible asthma etiology. Health Concerns Section Related Observation LastModified by Organization Detai ls LastModified Time None Recorded Concern Status LastModified by Organization Details LastModified Time None Recorded Advance Directives Directive None Recorded Payers Encounter Date Sequence Insurance Name Policy Number Policy Goodrich Covered Member ID Goodrich Member ID Guarantor Name 11/20/[address] [place] [address]) [id number] Pauly Rodriguez [id number] Pauly Rodriguez 12/31/2022 1 [facility] [id number] Pauly Rodriguez [id number] Pauly Rodriguez 01/08/[address] [place] [address]) [id number] Pauly Rodriguez [id number] Pauly Rodriguez 01/14/[address] [place] [address]) [id number] Pauly Rodriguez [id number] Pauly Rodriguez 08/04/[address] [place] [address]) [id number] 01 Sinan [id number] Pauly Rodriguez Notes Date Note Type Note Provider Name and Address Organization Details Recorded Time 11/20/2022 text/html Throat PainRepor tracey bypatient.Notes:Presen ts for sx sore throat, ear pain, sinus pain/ pressure, + coughing with phlegm- yellow/ bloody unclear if fever due to hot flashes. + chills, feels tired.using mucinex but no relief. no sick contacts MATTY Beebe [address] [facility] [address], [place], [address], [facility] 11/20/2022 15:07:31 12/31/2022 text/html Musculoskeletal PainReported [...] started yesterday 12/30. 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 Pt does have a histroy of upper back spasms. Pt has been taking Ibuprofen (800mg every 6 hours) and using her muscle relaxers which do help. LUBNA CANO MD [address] [address], [place], [address], [facility] 12/31/2022 12:37:39 01/08/2023 text/html Generic HPI TemplateReported bypatient.Notes:47 year old female for annual well visit.Moderate persistent asthma followed by pulmonary, on Breo and Symbicort, Albuterol PRN> Fibromyalgia followed by furnace cooler, on muscle relaxants PRN and lidocaine patch. Used to take pregabalin as well.Family h/o colo cancer , thyroid disease, Lupus in sister. NO prior colonoscopy. Due for NETWORK ADMINISTRATOR and mammo in fall.Multinodular goiter. Pt. was referred to endo at [facility] and had biopsy done which was benign. Her TSH was also normal.BMI is 24.9. Vaccines are up to date. Sees NETWORK ADMINISTRATOR and has mammogram yearly. NO records in chart. Michaelle Wallace PA-C [address] [facility] [address], [place], [address], [facility] 01/08/2023 15:11:26 01/14/2024 text/html Generic HPI TemplateReported bypatient.Notes:Presen ts for PE, no concerns. Has been having back pain- negative Xray, pain is everywhere, + numbness and tingling. XR showed degenerative disc disease. MATTY Beebe [address] [facility] [address], [place], [address], [facility] 01/14/2024 15:46:12 08/04/2024 text/html 48y/o with FMS h aving left sided non exertional midline chest pain for a few days. Starts at sternum then radiates posteriorly L>R. Happening with supine positioning. Has history of asthma and GERD. Under a lot of stress since her mother's recent passing in hospice care. Rob Valencia MD [address] [facility] [address], [place], [address], [facility] 08/05/2024 16:37:35 OBGyn Episode No OBEpisode recorded.
--- OUTSIDE RECORDS SUMMARY | 2024-09-08 19:34 | XMS_ITS | Clinical Summary ---
Author Organization [facility] ity Address [address] [place] [address] Care Team Providers Care Macadam Raker Name Role Phone Unavailable Primary Care Provider [...]
== END 2024-09-08 16:08 | disposition home or self-care (01) ==
LOC: HO.HWS 15:55
PROVIDERS: PCP Registered Nurse; Visit Provider Obstetrics & Gynecology
DX: R87.610 Atypical squamous cells of undetermined significance on cytologic smear of cervix (ASC-US) (principal)
CPT/HCPCS: 99213

== ENCOUNTER 2025-05-25 15:56 | Outpatient (REF) | payer OTHER, SELFPAY ==
--- NOTE | ~2025-05-25 | MM_ITS ---
EXAMINATION: MM SCREENING DIGITAL BREAST TOMOSYNTHESIS, BILATERAL CLINICAL INFORMATION: Screening. Asymptomatic. COMPARISON: Mammography: Comparison is made with available priors TECHNIQUE: Digital breast mammography with tomosynthesis is performed in both the craniocaudal and mediolateral oblique views along with computer-aided detection (CAD). FINDINGS: There are scattered areas of fibroglandular density. Bilateral reduction mammoplasty. Bilateral circumscribed oval masses are stable. There are no significant masses, abnormal calcifications, or other abnormalities. MM/MM tomosynthesis screening BI IMPRESSION: No mammographic evidence of malignancy. Patient describes bilateral breast pain. Recommend clinical evaluation and if there is focal pain or if deemed clinically significant a diagnostic workup can be ordered and performed. ASSESSMENT: BI-RADS Category 2: Benign RECOMMENDATION: Routine annual mammography screening. 1 year F/U This examination should not preclude the clinical evaluation of a suspicious palpable abnormality. This patient's information was entered into a reminder system with a target due date for their next mammogram. Electronically signed by: Yi Jacinto DO 05/25/2025 06:53 PM SNOW
== END 2025-05-25 15:57 | disposition home or self-care (01) ==
LOC: HO.MAMMO 15:56
PROVIDERS: PCP Registered Nurse; Visit Provider Registered Nurse
DX: Z12.31 Encounter for screening mammogram for malignant neoplasm of breast (principal)
CPT/HCPCS: 77063; 77067

== ENCOUNTER → 2025-05-25 16:00 | Outpatient (BNV) | payer OTHER, SELFPAY | PROVIDERS: PCP Registered Nurse; Visit Provider Internal Medicine | DX: Z12.31 Encounter for screening mammogram for malignant neoplasm of breast (principal) | CPT/HCPCS: 77063; 77067 ==